=== PATIENT | male | born 1990 | race Caucasian/White ===

== ENCOUNTER 2020-05-23 10:54 | Outpatient (CLI) | payer OTHER, SELFPAY ==
[2020-05-24 13:59] LABS: SARS-CoV-2 RNA PCR Positive
== END 2020-05-23 10:55 | disposition home or self-care (01) ==
PROVIDERS: PCP Nurse Practitioner Family; Visit Provider Nurse Practitioner Family
DX: U07.1 COVID-19 (principal)
CPT/HCPCS: 87635; C9803; U0003

== ENCOUNTER 2020-09-05 15:54 | Outpatient (CLI) | payer OTHER, SELFPAY ==
[2020-09-05 16:10] LABS: Basophils Absolute Auto 0.04 K/mm3 (0.00-0.10); Basophils Percent Auto 0.5 % (0.0-1.0); Eosinophils Absolute Auto 0.11 K/mm3 (0.02-0.50); Eosinophils Percent Auto 1.3 % (1.0-6.0); Hemoglobin 14.6 g/dL (14.0-18.0); Immature Granulocyte Absolute 0.03 K/mm3 (0.00-0.00); Immature Granulocyte Percent A 0.3 % (0.0-0.0); Lymphocytes Absolute Auto 2.82 K/mm3 (1.10-4.50); Lymphocytes Percent Auto 32.1 % (18.0-42.0); Mean Corpuscular HGB Conc 34.8 g/dL (32.0-36.0); Mean Corpuscular Hemoglobin 31.9 pg (27.0-31.0); Mean Corpuscular Volume 91.9 fL (78.0-102.0); Mean Platelet Volume 10.7 fl (8.7-11.0); Monocytes Absolute Auto 0.56 K/mm3 (0.10-0.90); Monocytes Percent Auto 6.4 % (2.0-11.0); Neutrophils Absolute Auto 5.2 K/mm3 (1.7-7.2); Neutrophils Percent Auto 59.4 % (50.0-70.0); Platelet Count Result 224 K/mm3 (150-420); Red Blood Count 4.57 M/mm3 (4.70-6.10); Red Cell Distribution Width 11.6 % (11.6-14.4); White Blood Count 8.8 K/mm3 (4.8-10.8)
[2020-09-05 17:06] LABS: Alanine Aminotransferase 33 U/L (16-63); Albumin Level 4.2 g/dL (3.4-5.0); Alkaline Phosphatase 72 U/L (46-116); Amylase 28 U/L (25-115); Anion Gap 9 mmol/L (8-16); Aspartate Amino Transferase 23 U/L (15-37); Bilirubin,Total 0.3 mg/dL (0.00-1.00); Blood Urea Nitrogen 13 mg/dL (7-18); Carbon Dioxide 27 mmol/L (21-32); Chloride 103 mmol/L (98-108); Estimated Glomerular Filt Rate > 60; Glucose 118 mg/dL (70-99); Lipase 86 U/L (73-393); Osmolality Calculated 289 mOsm/kg (285-295); Potassium 4.1 mmol/L (3.5-5.1); Total Protein 7.5 g/dL (6.4-8.2)
[2020-09-05 17:11] LABS: Sodium 139 mmol/L (136-145)
[2020-09-06 18:05] LABS: Hemoglobin A1C 5.3 % (<5.7)
[2020-09-07 19:29] LABS: Valproic Acid 23.3 mg/L (50.0-100.0)
== END 2020-09-05 15:55 | disposition home or self-care (01) ==
LOC: CHSLAB 15:57
PROVIDERS: PCP Nurse Practitioner Family; Visit Provider Nurse Practitioner Family
DX: R11.2 Nausea with vomiting, unspecified (principal); R10.9 Unspecified abdominal pain; Z00.00 Encounter for general adult medical examination without abnormal findings
CPT/HCPCS: 36415; 80053; 80164; 82150; 83036; 83690; 85025

== ENCOUNTER 2020-10-16 12:01 | Outpatient (CLI) | payer OTHER, SELFPAY ==
--- NOTE | 2020-10-16 12:04 | ECG_ITS ---
Measurements Intervals [place] Rate: 53 P: 20 ME: 168 QRS: -7 QRSD: 116 T: 22 QT: 423 QTc: 400 Interpretive Statements SINUS BRADYCARDIA WITH SINUS ARRHYTHMIA DELAYED PRECORDIAL R/S TRANSITION MINIMAL Q WAVES- HIGH LATERAL LEADS BORDERLINE ECG Electronically Signed On 10-16-2020 12:25:13 IMPREGNATOR by Eder Morejon D.O.
== END 2020-10-16 12:02 | disposition home or self-care (01) ==
LOC: CHSCARD 12:04
PROVIDERS: PCP Family Medicine; Visit Provider Nurse Practitioner Family
DX: R00.2 Palpitations (principal)
CPT/HCPCS: 93005

== ENCOUNTER 2021-04-10 16:29 | Outpatient (CLI) | payer OTHER, SELFPAY ==
[2021-04-10 16:56] LABS: Basophils Absolute Auto 0.05 K/mm3 (0.00-0.10); Basophils Percent Auto 0.6 % (0.0-1.0); Eosinophils Absolute Auto 0.13 K/mm3 (0.02-0.50); Eosinophils Percent Auto 1.5 % (1.0-6.0); Hematocrit 41.3 % (40.0-54.0); Hemoglobin 14.7 g/dL (14.0-18.0); Immature Granulocyte Absolute 0.04 K/mm3 (0.00-0.00); Immature Granulocyte Percent A 0.5 % (0.0-0.0); Lymphocytes Absolute Auto 2.79 K/mm3 (1.10-4.50); Lymphocytes Percent Auto 32.2 % (18.0-42.0); Mean Corpuscular HGB Conc 35.6 g/dL (32.0-36.0); Mean Corpuscular Hemoglobin 32.5 pg (27.0-31.0); Mean Corpuscular Volume 91.2 fL (78.0-102.0); Mean Platelet Volume 10.8 fl (8.7-11.0); Monocytes Absolute Auto 0.62 K/mm3 (0.10-0.90); Monocytes Percent Auto 7.2 % (2.0-11.0); Platelet Count Result 240 K/mm3 (150-420); Red Blood Count 4.53 M/mm3 (4.70-6.10); Red Cell Distribution Width 11.9 % (11.6-14.4); White Blood Count 8.7 K/mm3 (4.8-10.8)
[2021-04-10 17:06] LABS: Hemoglobin A1C 5.2 % (<5.7)
[2021-04-10 17:23] LABS: Alanine Aminotransferase 25 U/L (16-63); Albumin Level 4.3 g/dL (3.4-5.0); Alkaline Phosphatase 74 U/L (46-116); Anion Gap 11 mmol/L (8-16); Aspartate Amino Transferase 19 U/L (15-37); Bilirubin,Total 0.3 mg/dL (0.00-1.00); Blood Urea Nitrogen 12 mg/dL (7-18); Calcium 8.9 mg/dL (8.5-10.1); Carbon Dioxide 30 mmol/L (21-32); Chloride 101 mmol/L (98-108); Cholesterol 147 mg/dL (0-200); Estimated Glomerular Filt Rate > 60; Free T4 Free Thyroxine 1.06 ng/dL (0.76-1.46); Glucose 97 mg/dL (70-99); HDL Direct 27 mg/dL (40-60); LDL Cholesterol Calculated 27 mg/dL (<130); Osmolality Calculated 293 mOsm/kg (285-295); Potassium 4.7 mmol/L (3.5-5.1); Sodium 142 mmol/L (136-145); Thyroid Stimulating Hormone 1.83 uIU/mL (0.36-3.74); Total Protein 7.7 g/dL (6.4-8.2); Triglycerides 467 mg/dL (0-150)
[2021-04-10 17:29] LABS: Folic Acid > 20.0 ng/mL (8.6->20)
[2021-04-11 11:16] LABS: LDL Cholesterol Direct 82 mg/dL (0-130)
[2021-04-12 15:43] LABS: Valproic Acid 26.2 mg/L (50.0-100.0)
== END 2021-04-10 16:30 | disposition home or self-care (01) ==
LOC: CHSLAB 16:33
PROVIDERS: PCP Nurse Practitioner Family; Visit Provider Nurse Practitioner Psychiatric/Mental Health
DX: Z79.899 Other long term (current) drug therapy (principal); F31.32 Bipolar disorder, current episode depressed, moderate; F41.1 Generalized anxiety disorder; F51.01 Primary insomnia; K21.9 Gastro-esophageal reflux disease without esophagitis
CPT/HCPCS: 36415; 80053; 80061; 80164; 82746; 83036; 83721; 84439; 84443; 85025

== ENCOUNTER 2021-04-26 17:44 | Outpatient (CLI) | payer OTHER, SELFPAY ==
[2021-04-26 19:03] LABS: SARS-CoV-2 RNA PCR Negative (Negative)
== END 2021-04-26 17:45 | disposition home or self-care (01) ==
LOC: CHSLAB 17:47
PROVIDERS: PCP Nurse Practitioner Family; Visit Provider Nurse Practitioner Family
DX: J02.9 Acute pharyngitis, unspecified (principal); Z20.822 Contact with and (suspected) exposure to COVID-19
CPT/HCPCS: C9803; U0003; U0005

== ENCOUNTER 2021-09-17 08:02 | Outpatient (CLI) | payer OTHER, SELFPAY ==
[2021-09-17 08:15] LABS: Basophils Absolute Auto 0.04 K/mm3 (0.00-0.10); Basophils Percent Auto 0.7 % (0.0-1.0); Eosinophils Percent Auto 1.7 % (1.0-6.0); Hematocrit 43.2 % (40.0-54.0); Hemoglobin 15.2 g/dL (14.0-18.0); Immature Granulocyte Absolute 0.02 K/mm3 (0.00-0.00); Immature Granulocyte Percent A 0.3 % (0.0-0.0); Lymphocytes Absolute Auto 2.05 K/mm3 (1.10-4.50); Lymphocytes Percent Auto 35.5 % (18.0-42.0); Mean Corpuscular HGB Conc 35.2 g/dL (32.0-36.0); Mean Corpuscular Hemoglobin 31.9 pg (27.0-31.0); Mean Corpuscular Volume 90.8 fL (78.0-102.0); Mean Platelet Volume 10.5 fl (8.7-11.0); Monocytes Absolute Auto 0.48 K/mm3 (0.10-0.90); Monocytes Percent Auto 8.3 % (2.0-11.0); Neutrophils Absolute Auto 3.1 K/mm3 (1.7-7.2); Neutrophils Percent Auto 53.5 % (50.0-70.0); Platelet Count Result 229 K/mm3 (150-420); Red Blood Count 4.76 M/mm3 (4.70-6.10); Red Cell Distribution Width 11.1 % (11.6-14.4); White Blood Count 5.8 K/mm3 (4.8-10.8)
[2021-09-17 08:43] LABS: Hemoglobin A1C 5.2 % (<5.7)
[2021-09-17 09:03] LABS: Alanine Aminotransferase 27 U/L (16-63); Albumin Level 4.1 g/dL (3.4-5.0); Alkaline Phosphatase 74 U/L (46-116); Anion Gap 10 mmol/L (8-16); Aspartate Amino Transferase 17 U/L (15-37); Bilirubin,Total 0.5 mg/dL (0.00-1.00); Blood Urea Nitrogen 10 mg/dL (7-18); Calcium 8.7 mg/dL (8.5-10.1); Carbon Dioxide 27 mmol/L (21-32); Chloride 104 mmol/L (98-108); Cholesterol 130 mg/dL (0-200); Estimated Glomerular Filt Rate > 60; Folic Acid > 20.0 ng/mL (8.6->20); Glucose 98 mg/dL (70-99); HDL Direct 30 mg/dL (40-60); LDL Cholesterol Calculated 59 mg/dL (<130); Osmolality Calculated 291 mOsm/kg (285-295); Potassium 4.5 mmol/L (3.5-5.1); Sodium 141 mmol/L (136-145); Thyroid Stimulating Hormone 1.86 uIU/mL (0.36-3.74); Total Protein 7.4 g/dL (6.4-8.2); Triglycerides 203 mg/dL (0-150)
[2021-09-20 11:04] LABS: Valproic Acid 35.5 mg/L (50.0-100.0)
== END 2021-09-17 08:03 | disposition home or self-care (01) ==
LOC: CHSLAB 08:05
PROVIDERS: PCP Nurse Practitioner Family; Visit Provider Nurse Practitioner Psychiatric/Mental Health
DX: Z79.899 Other long term (current) drug therapy (principal); F41.1 Generalized anxiety disorder; F51.01 Primary insomnia; K21.9 Gastro-esophageal reflux disease without esophagitis; F31.32 Bipolar disorder, current episode depressed, moderate
CPT/HCPCS: 36415; 80053; 80061; 80164; 82746; 83036; 84439; 84443; 85025

== ENCOUNTER 2022-09-02 13:31 | Outpatient (CLI) | payer OTHER, SELFPAY ==
[2022-09-02 13:48] LABS: Basophils Absolute Auto 0.04 K/mm3 (0.00-0.10); Basophils Percent Auto 0.5 % (0.0-1.0); Eosinophils Absolute Auto 0.16 K/mm3 (0.02-0.50); Hematocrit 44.1 % (40.0-54.0); Hemoglobin 15.5 g/dL (14.0-18.0); Immature Granulocyte Absolute 0.02 K/mm3 (0.00-0.00); Immature Granulocyte Percent A 0.2 % (0.0-0.0); Lymphocytes Absolute Auto 2.41 K/mm3 (1.10-4.50); Mean Corpuscular HGB Conc 35.1 g/dL (32.0-36.0); Mean Corpuscular Hemoglobin 31.9 pg (27.0-31.0); Mean Corpuscular Volume 90.7 fL (78.0-102.0); Mean Platelet Volume 10.6 fl (8.7-11.0); Monocytes Absolute Auto 0.66 K/mm3 (0.10-0.90); Monocytes Percent Auto 8.2 % (2.0-11.0); Neutrophils Absolute Auto 4.8 K/mm3 (1.7-7.2); Neutrophils Percent Auto 59.1 % (50.0-70.0); Platelet Count Result 255 K/mm3 (150-420); Red Blood Count 4.86 M/mm3 (4.70-6.10); Red Cell Distribution Width 11.5 % (11.6-14.4)
[2022-09-02 14:04] LABS: Hemoglobin A1C 5.1 % (<5.7)
[2022-09-02 14:24] LABS: Alanine Aminotransferase 23 U/L (16-63); Albumin Level 4.3 g/dL (3.4-5.0); Alkaline Phosphatase 78 U/L (46-116); Anion Gap 10 mmol/L (8-16); Aspartate Amino Transferase 17 U/L (15-37); Bilirubin Direct 0.1 mg/dL (0-0.2); Bilirubin,Total 0.3 mg/dL (0.00-1.00); Blood Urea Nitrogen 14 mg/dL (7-18); Calcium 9.3 mg/dL (8.5-10.1); Carbon Dioxide 28 mmol/L (21-32); Chloride 105 mmol/L (98-108); Cholesterol 171 mg/dL (0-200); Estimated Glomerular Filt Rate > 60; Free T4 Free Thyroxine 0.93 ng/dL (0.76-1.46); Glucose 97 mg/dL (70-99); HDL Direct 32 mg/dL (40-60); LDL Cholesterol Calculated 49 mg/dL (<130); Osmolality Calculated 296 mOsm/kg (285-295); Potassium 4.4 mmol/L (3.5-5.1); Sodium 143 mmol/L (136-145); Thyroid Stimulating Hormone 2.24 uIU/mL (0.36-3.74); Total Protein 7.5 g/dL (6.4-8.2); Triglycerides 452 mg/dL (0-150)
[2022-09-02 14:30] LABS: LDL Cholesterol Direct 90 mg/dL (0-130)
[2022-09-04 15:51] LABS: Valproic Acid 17.3 mg/L (50.0-100.0)
== END 2022-09-02 13:32 | disposition home or self-care (01) ==
LOC: CHSLAB 13:38
PROVIDERS: PCP Nurse Practitioner Family; Visit Provider Nurse Practitioner Psychiatric/Mental Health
DX: Z79.899 Other long term (current) drug therapy (principal); K21.9 Gastro-esophageal reflux disease without esophagitis; F41.1 Generalized anxiety disorder; F51.01 Primary insomnia
CPT/HCPCS: 36415; 80053; 80061; 80164; 82248; 83036; 83721; 84439; 84443; 85025

== ENCOUNTER 2023-01-19 11:06 | Outpatient (CLI) | payer OTHER, SELFPAY ==
[2023-01-19 11:24] LABS: Basophils Absolute Auto 0.04 K/mm3 (0.00-0.10); Basophils Percent Auto 0.7 % (0.0-1.0); Eosinophils Absolute Auto 0.13 K/mm3 (0.02-0.50); Eosinophils Percent Auto 2.1 % (1.0-6.0); Hematocrit 43.3 % (40.0-54.0); Immature Granulocyte Absolute 0.02 K/mm3 (0.00-0.00); Immature Granulocyte Percent A 0.3 % (0.0-0.0); Lymphocytes Percent Auto 32.9 % (18.0-42.0); Mean Corpuscular HGB Conc 34.6 g/dL (32.0-36.0); Mean Corpuscular Hemoglobin 31.6 pg (27.0-31.0); Mean Corpuscular Volume 91.4 fL (78.0-102.0); Mean Platelet Volume 10.8 fl (8.7-11.0); Monocytes Absolute Auto 0.45 K/mm3 (0.10-0.90); Monocytes Percent Auto 7.4 % (2.0-11.0); Neutrophils Absolute Auto 3.4 K/mm3 (1.7-7.2); Neutrophils Percent Auto 56.6 % (50.0-70.0); Platelet Count Result 222 K/mm3 (150-420); Red Blood Count 4.74 M/mm3 (4.70-6.10); Red Cell Distribution Width 11.7 % (11.6-14.4); White Blood Count 6.1 K/mm3 (4.8-10.8)
[2023-01-19 11:57] LABS: Alanine Aminotransferase 29 U/L (16-63); Albumin Level 4.2 g/dL (3.4-5.0); Alkaline Phosphatase 78 U/L (46-116); Anion Gap 7 mmol/L (8-16); Aspartate Amino Transferase 25 U/L (15-37); Bilirubin Direct 0.1 mg/dL (0-0.2); Bilirubin,Total 0.5 mg/dL (0.00-1.00); Blood Urea Nitrogen 9 mg/dL (7-18); Carbon Dioxide 30 mmol/L (21-32); Chloride 103 mmol/L (98-108); Cholesterol 147 mg/dL (0-200); Estimated Glomerular Filt Rate > 60; Glucose 91 mg/dL (70-99); HDL Direct 37 mg/dL (40-60); LDL Cholesterol Calculated 83 mg/dL (<130); Osmolality Calculated 288 mOsm/kg (285-295); Potassium 4.5 mmol/L (3.5-5.1); Sodium 140 mmol/L (136-145); Thyroid Stimulating Hormone 2.72 uIU/mL (0.36-3.74); Total Protein 7.6 g/dL (6.4-8.2); Triglycerides 135 mg/dL (0-150)
[2023-01-21 19:43] LABS: Valproic Acid 16.1 mg/L (50.0-100.0)
== END 2023-01-19 11:07 | disposition home or self-care (01) ==
LOC: CHSLAB 11:08
PROVIDERS: PCP Nurse Practitioner Family; Visit Provider Nurse Practitioner Psychiatric/Mental Health
DX: F41.1 Generalized anxiety disorder (principal); F31.32 Bipolar disorder, current episode depressed, moderate; F51.01 Primary insomnia; K21.9 Gastro-esophageal reflux disease without esophagitis; Z79.899 Other long term (current) drug therapy
CPT/HCPCS: 36415; 80053; 80061; 80164; 82248; 84443; 85025

== ENCOUNTER 2023-08-26 09:09 | Outpatient (CLI) | payer OTHER, SELFPAY ==
[2023-08-26 09:33] LABS: Hemoglobin A1C 5.4 % (<5.7)
[2023-08-26 09:38] LABS: Basophils Absolute Auto 0.05 K/mm3 (0.00-0.10); Basophils Percent Auto 0.8 % (0.0-1.0); Eosinophils Absolute Auto 0.11 K/mm3 (0.02-0.50); Eosinophils Percent Auto 1.7 % (1.0-6.0); Hematocrit 44.2 % (40.0-54.0); Hemoglobin 15.4 g/dL (14.0-18.0); Immature Granulocyte Absolute 0.03 K/mm3 (0.00-0.00); Immature Granulocyte Percent A 0.5 % (0.0-0.0); Lymphocytes Absolute Auto 1.95 K/mm3 (1.10-4.50); Mean Corpuscular HGB Conc 34.8 g/dL (32.0-36.0); Mean Corpuscular Volume 91.7 fL (78.0-102.0); Mean Platelet Volume 10.4 fl (8.7-11.0); Monocytes Absolute Auto 0.55 K/mm3 (0.10-0.90); Monocytes Percent Auto 8.7 % (2.0-11.0); Neutrophils Absolute Auto 3.6 K/mm3 (1.7-7.2); Neutrophils Percent Auto 57.3 % (50.0-70.0); Platelet Count Result 232 K/mm3 (150-420); Red Blood Count 4.82 M/mm3 (4.70-6.10); Red Cell Distribution Width 11.8 % (11.6-14.4); White Blood Count 6.3 K/mm3 (4.8-10.8)
[2023-08-26 10:09] LABS: Alanine Aminotransferase 26 U/L (16-63); Albumin Level 3.8 g/dL (3.4-5.0); Alkaline Phosphatase 59 U/L (46-116); Anion Gap 6 mmol/L (8-16); Aspartate Amino Transferase 19 U/L (15-37); Bilirubin Direct 0.1 mg/dL (0-0.2); Bilirubin,Total 0.7 mg/dL (0.00-1.00); Blood Urea Nitrogen 10 mg/dL (7-18); Calcium 8.9 mg/dL (8.5-10.1); Carbon Dioxide 31 mmol/L (21-32); Chloride 103 mmol/L (98-108); Cholesterol 144 mg/dL (0-200); Estimated Glomerular Filt Rate > 60; Glucose 95 mg/dL (70-99); HDL Direct 35 mg/dL (40-60); LDL Cholesterol Calculated 72 mg/dL (<130); Osmolality Calculated 289 mOsm/kg (285-295); Potassium 4.5 mmol/L (3.5-5.1); Sodium 140 mmol/L (136-145); Thyroid Stimulating Hormone 1.61 uIU/mL (0.36-3.74); Total Protein 7.1 g/dL (6.4-8.2); Triglycerides 183 mg/dL (0-150)
[2023-08-29 04:20] LABS: Valproic Acid 20.5 mg/L (50.0-100.0)
== END 2023-08-26 09:10 | disposition home or self-care (01) ==
LOC: CHSLAB 09:13
PROVIDERS: PCP Nurse Practitioner Family; Visit Provider Nurse Practitioner Psychiatric/Mental Health
DX: F31.32 Bipolar disorder, current episode depressed, moderate (principal); Z79.899 Other long term (current) drug therapy; K21.9 Gastro-esophageal reflux disease without esophagitis; F51.01 Primary insomnia
CPT/HCPCS: 36415; 80053; 80061; 80164; 82248; 83036; 84443; 85025

== ENCOUNTER 2024-02-02 11:28 | Outpatient (CLI) | payer OTHER, SELFPAY ==
[2024-02-02 12:18] LABS: Basophils Absolute Auto 0.06 K/mm3 (0.00-0.10); Basophils Percent Auto 0.8 % (0.0-1.0); Eosinophils Absolute Auto 0.14 K/mm3 (0.02-0.50); Eosinophils Percent Auto 1.9 % (1.0-6.0); Hematocrit 47.4 % (40.0-54.0); Hemoglobin 16.4 g/dL (14.0-18.0); Immature Granulocyte Absolute 0.03 K/mm3 (0.00-0.00); Immature Granulocyte Percent A 0.4 % (0.0-0.0); Lymphocytes Percent Auto 24.2 % (18.0-42.0); Mean Corpuscular HGB Conc 34.6 g/dL (32-36); Mean Corpuscular Hemoglobin 31.3 pg (27.0-31.0); Mean Corpuscular Volume 90.5 fL (78.0-102.0); Mean Platelet Volume 10.6 fl (8.7-11.0); Monocytes Absolute Auto 0.53 K/mm3 (0.10-0.90); Monocytes Percent Auto 7.1 % (2.0-11.0); Neutrophils Absolute Auto 4.87 K/mm3 (1.70-7.20); Neutrophils Percent Auto 65.6 % (50.0-70.0); Platelet Count Result 278 K/mm3 (150-420); Red Blood Count 5.24 M/mm3 (4.70-6.10); Red Cell Distribution Width 11.7 % (11.6-14.4); White Blood Count 7.4 K/mm3 (4.8-10.8)
[2024-02-02 12:54] LABS: Alanine Aminotransferase 28 U/L (16-63); Albumin Level 3.8 g/dL (3.4-5.0); Alkaline Phosphatase 59 U/L (46-116); Anion Gap 10 mmol/L (4-12); Aspartate Amino Transferase 21 U/L (15-37); Bilirubin,Total 0.6 mg/dL (0.00-1.00); Blood Urea Nitrogen 6 mg/dL (7-18); Calcium 8.7 mg/dL (8.5-10.1); Carbon Dioxide 27 mmol/L (21-32); Chloride 101 mmol/L (98-108); Estimated Glomerular Filt Rate > 60; Glucose 91 mg/dL (70-99); Osmolality Calculated 283 mOsm/kg (285-295); Potassium 4.4 mmol/L (3.5-5.1); Prostate Specific Antigen 0.7 ng/mL (< OR = 4.0); Sodium 138 mmol/L (136-145); Total Protein 6.9 g/dL (6.4-8.2)
[2024-02-04 08:08] LABS: Sex Hormone Binding Globulin 18 nmol/L (10-50)
[2024-02-06 11:33] LABS: Testosterone Free 194.1 pg/mL (35.0-155.0); Testosterone Total 771 ng/dL (250-1100)
[2024-02-10 02:19] LABS: Estradiol, Ultrasensitive 60 pg/mL (< OR = 29)
== END 2024-02-02 11:29 | disposition home or self-care (01) ==
LOC: CHSLAB 11:32
PROVIDERS: PCP Nurse Practitioner Family; Visit Provider Chiropractor
DX: D75.1 Secondary polycythemia (principal); N52.8 Other male erectile dysfunction; E29.1 Testicular hypofunction; Z79.890 Hormone replacement therapy
CPT/HCPCS: 36415; 80053; 82670; 84153; 84270; 84402; 84403; 85025

== ENCOUNTER 2024-07-26 11:25 | Outpatient (CLI) | payer OTHER, SELFPAY ==
[2024-07-26 11:52] LABS: Basophils Absolute Auto 0.04 K/mm3 (0.00-0.10); Basophils Percent Auto 0.5 % (0.0-1.0); Eosinophils Absolute Auto 0.07 K/mm3 (0.02-0.50); Eosinophils Percent Auto 0.9 % (1.0-6.0); Hematocrit 48.2 % (40.0-54.0); Immature Granulocyte Absolute 0.03 K/mm3 (0.00-0.00); Immature Granulocyte Percent A 0.4 % (0.0-0.0); Lymphocytes Absolute Auto 1.95 K/mm3 (1.10-4.50); Lymphocytes Percent Auto 24.9 % (18.0-42.0); Mean Corpuscular HGB Conc 35.3 g/dL (32-36); Mean Corpuscular Hemoglobin 31.2 pg (27.0-31.0); Mean Corpuscular Volume 88.4 fL (78.0-102.0); Mean Platelet Volume 10.3 fl (8.7-11.0); Monocytes Absolute Auto 0.61 K/mm3 (0.10-0.90); Monocytes Percent Auto 7.8 % (2.0-11.0); Neutrophils Absolute Auto 5.14 K/mm3 (1.70-7.20); Neutrophils Percent Auto 65.5 % (50.0-70.0); Platelet Count Result 234 K/mm3 (150-420); Red Blood Count 5.45 M/mm3 (4.70-6.10); Red Cell Distribution Width 11.9 % (11.6-14.4); White Blood Count 7.8 K/mm3 (4.8-10.8)
[2024-07-26 13:12] LABS: Alanine Aminotransferase 35 U/L (16-63); Albumin Level 3.9 g/dL (3.4-5.0); Alkaline Phosphatase 67 U/L (46-116); Anion Gap 9 mmol/L (4-12); Aspartate Amino Transferase 27 U/L (15-37); Bilirubin Direct 0.1 mg/dL (0-0.2); Bilirubin,Total 0.8 mg/dL (0.00-1.00); Blood Urea Nitrogen 8 mg/dL (7-18); Calcium 8.9 mg/dL (8.5-10.1); Carbon Dioxide 28 mmol/L (21-32); Chloride 100 mmol/L (98-108); Cholesterol 119 mg/dL (0-200); Estimated Glomerular Filt Rate > 60; Glucose 87 mg/dL (70-99); HDL Direct 35 mg/dL (40-60); LDL Cholesterol Calculated 58 mg/dL (<130); Osmolality Calculated 281 mOsm/kg (285-295); Potassium 4.5 mmol/L (3.5-5.1); Prostate Specific Antigen 0.7 ng/mL (< OR = 4.0); Sodium 137 mmol/L (136-145); Total Protein 7.1 g/dL (6.4-8.2); Triglycerides 128 mg/dL (0-150)
[2024-07-26 13:16] LABS: Thyroid Stimulating Hormone Reflex 0.85 u/IU/mL (0.36-3.74)
[2024-07-27 09:28] LABS: Valproic Acid 44.5 mg/L (50.0-100.0)
[2024-07-29 06:19] LABS: Sex Hormone Binding Globulin 11 nmol/L (10-50)
== END 2024-07-26 11:26 | disposition home or self-care (01) ==
LOC: CHSLAB 11:27
PROVIDERS: PCP Nurse Practitioner Family; Visit Provider Nurse Practitioner Family
DX: Z00.00 Encounter for general adult medical examination without abnormal findings (principal); F31.32 Bipolar disorder, current episode depressed, moderate; F41.1 Generalized anxiety disorder; F51.01 Primary insomnia; R45.4 Irritability and anger; Z79.899 Other long term (current) drug therapy
CPT/HCPCS: 36415; 80053; 80061; 80164; 82248; 82670; 83036; 84153; 84270; 84402; 84403; 84443; 85025

== ENCOUNTER 2025-02-28 13:05 | Outpatient (CLI) | payer OTHER, SELFPAY ==
--- OUTSIDE RECORDS SUMMARY | 2025-02-28 13:16 | XMS_ITS | Patient Health Record ---
Author Organization 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 Name Role Phone Nano Kennedy Primary Care Provider Unav Ava Hernandez Unavailable [phone] Faviola Agosto Unavailable [phone] Blake Eason Unavailable [phone] Allergies Allergen (clinical drug ingredient) Drug/Non Drug Allergy documented on EMR Reaction Allergy Type Onset Date Status BEE STINGS (uncoded) Unknown Allergy Active Results Component Value Reference Range Notes UDT Reviewed date:12/21/2024 11:03:24 AM Interpretation: Performing Lab: Notes/Report: THC POS 0 - 50 ng/ml Cocaine NEG 0 - 300 ng/ml Amphetamine NEG 0 - 1000 ng/ml Buprenorphine (BUP) NEG 0 - 10 ng/ml Secobarbital (Bar) NEG 0 - 300 ng/ml Oxazepam (BZO) NEG 0 - 300 ng/ml 6-nbhhkufnzg-5,9-xmmpydts-7, 3-dipheny lpyrrolidine (EDDP) NEG 0 - 300 ng/ml Methamphetamine (MET) NEG 0 - 1000 ng/ml Methylenedioxymethamphetamine (MDMA) NEG 0 - 500 ng/ml Morphine (MOP 300/[id number]) NEG 0 - 300 ng/ml Methadone (MTD) NEG 0 - 300 ng/ml Phencyclidine (PCP) NEG 0 - 25 ng/ml Nortriptyline (TCA) NEG 0 - 1000 ng/ml Oxycodone NEG 0 - 300 ng/ml x NEG 0 - 300 ng/ml THCCOOH Reviewed date:01/06/2025 09:33:11 AM Interpretation: Performing Lab:1, [facility], [address] [facility], [place], Director - [id number] Notes/Report: An exception occurred while processing this report and so it has incomplete data. Please contact [employer] for assistance. THCCOOH 167.8 15.0 ng/mL Not Medicated Inconsistent PDF Report CE_OUT_RAW_CO MMON_SRC_ORU Validity Testing Reviewed date:01/06/2025 09:33:22 AM Interpretation: Performing Lab: Notes/Report: Not Medicated Consistent Not Medicated Consistent Not Medicated Consistent Not Medicated Consistent Specific [place] 1.023 1.003 - 1.030 pH 6.2 3.0 - 10.9 Oxidants -21 200 g/mL Creatinine 123.0 20.0 - 300.0 mg/dL UDT Reviewed date:12/27/2024 01:23:40 PM Interpretation: Performing Lab: Notes/Report: THC POS 0 - 50 ng/ml Cocaine NEG 0 - 300 ng/ml Amphetamine NEG 0 - 1000 ng/ml Buprenorphine (BUP) NEG 0 - 10 ng/ml Secobarbital (Bar) NEG 0 - 300 ng/ml Oxazepam (BZO) NEG 0 - 300 ng/ml 3-zzwpqdwmfe-5,9-lpswofig-1, 3-dipheny lpyrrolidine (EDDP) NEG 0 - 300 ng/ml Methamphetamine (MET) NEG 0 - 1000 ng/ml Methylenedioxymethamphetamine (MDMA) NEG 0 - 500 ng/ml Morphine (MOP 300/[id number]) NEG 0 - 300 ng/ml Methadone (MTD) NEG 0 - 300 ng/ml Phencyclidine (PCP) NEG 0 - 25 ng/ml Nortriptyline (TCA) NEG 0 - 1000 ng/ml Oxycodone NEG 0 - 300 ng/ml x NEG 0 - 300 ng/ml Reason For Referral No Information Medications Medication SIG (Take, Route, Frequency, Duration) Notes Start Date End Date Status Venlafaxine HCl ER 37.5 MG Oral 10/20/2023 Not-Taking Divalproex Sodium ER 500 MG 1 tablet Oral three times a day for 90 days 05/08/2025 Active Omeprazole 40 MG Oral 10/20/2023 No t-Taking Venlafaxine HCl ER 150 MG 1 capsule Oral Once a day for 90 days Active ARIPiprazole 5 MG Oral 10/20/2023 N ot-Taking Cariprazine HCl 3 MG 1 capsule Orally Once a day for 90 days Active Atomoxetine HCl 60 MG 1 capsule Orally Once a day for 90 days d/c 40 mg dose 12/27/2024 05/08/2025 Active Famotidine 10 MG 1 tablet as needed Oral Twice a day 10/20/2023 Active ProAir HFA 108 (90 Base) MCG/ACT Inhalation 10/20/2023 Active busPIRone HCl 10 MG 1 tablet Oral three times day for 90 days 05/08/2025 Active Vraylar 3 MG 1 capsule Orally Once a day for 30 day(s) PA approved 09/26/24-09/27/2024 Active Immunizations Vaccine Route Administration Date Status Comme nts Tdap Unknown 10/11/2012 Administered Td (adult), adsorbed Unknown 05/07/2002 Administered Pfizer Biontech Covid-19 Vac cine 2nd dose Unknown 10/11/2021 Administered Pfizer Biontech Covid-19 Vac cine 2nd dose Unknown 11/01/2021 Administered OPV Unknown 1988 Administered OPV Unknown 1988 Administered OPV Unknown 02/06/1989 Administered OPV Unknown 06/04/1990 Administered OPV Unknown 05/07/1993 Administered MMR Unknown 03/02/1990 Administered MMR Unknown 05/07/1993 Administered MMR Unknown 10/11/2012 Administered Hib, unspecified formulation Unknown 06/04/1990 Adminis tered Hep B, adolescent or pediatr ic (11-19), 3 dose schedule Unknown 10/31/1997 Administered Hep B, adolescent or pediatr ic (11-19), 3 dose schedule Unknown 11/28/1997 Administered Hep B, adolescent or pediatr ic (11-19), 3 dose schedule Unknown 04/27/1998 Administered DTP Unknown 1988 Administered DTP Unknown 1988 Administered DTP Unknown 02/06/1989 Administered DTP Unknown 06/04/1990 Administered DTP Unknown 05/07/1993 Administered Social History Tobacco Use: Social History Observation Description Date Details (start date - stop date) Former Smoker 03/05/2003 - 05/05/2024 Sex Assigned At : Social History Observation Description Sex Assigned At Male Household Question Answer Notes Marital status: Number of adults in household: 2 Sexual History Question Answer Notes Had sex in the past 12 months (vaginal, oral, or anal)? Yes with Women only Tobacco Control (Standard) Question Answer Notes Tobacco use: Former smoker How often do you smoke cigarettes? Every day When did you start smoking? 03/05/2003 When did you stop smoking? 05/05/2024 How many cigarettes a day do you smoke? 11-20 How soon after you wake up d o you smoke your first cigarette? 6-30 minutes Are you interested in quitting? Thinking about q uitting How long has it been since y ou last smoked? 3-6 months Additional Findings: Tobacco user e-cigarette Additional Findings: Tobacco non-user Current no nsmoker,Ex-cigarette smoker AUDIT-C (Standard) Question Answer Notes Did you have a drink contain ing alcohol in the past year? Yes How often did you have six o r more drinks on one occasion in the past year? 2 to 3 times per week (3 points) How many drinks did you have on a typical day when you were drinking in the past year? 10 or more drinks (4 points) How often did you have a dri nk containing alcohol in the past year? 2 to 3 times a week (3 points) Points 10 Interpretation Positive Section Notes: Do you or have you ever smok ed tobacco?: Current every day smokerHow many years have you smoked tobacco?: 18At what age did you start smoking tobacco?: 12How much tobacco do you smoke?: NoneWhen did you quit smoking?: (Notes: 01/03/2023)Do you or have you ever used any other forms of tobacco or nicotine?: NoDo you or have you ever used e-cigarettes or vape?: Current user of electronic cigarettesDo you or have you ever used smokeless tobacco?: Never used smokeless tobaccoHow much tobacco do you chew?: noneWhat was the date of your most recent tobacco screening?: 10/06/2023Has tobacco cessation counseling been provided?: NoOn what date was tobacco cessation counseling provided?: 08/25/2023What is your level of alcohol consumption?: OccasionalHow many years have you consumed alcohol?: 18How many days in the past year have you consumed 5 or more drinks? 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 SexualityWhat is your relationship status?: MarriedAre you sexually active?: YesDo you use protection during sex?: NoHow many children do you have?: 1Home and EnvironmentAre you a caregiver?: NoDo you have any siblings?: 1Do you have smoke and carbon monoxide detectors in your home?: YesAre you passively exposed to smoke?: YesAre there any smokers in your house?: YesAre there any guns present in your home?: YesDiet and ExerciseWhat type of diet are you following?: RegularLifestyleDo you feel stressed (tense, restless, nervous, or anxious, or unable to sleep at night)?: Rather muchDo you participate in social media?: YesDo you use your seat belt or car seat routinely?: YesAdvance DirectiveDo you have an advance directive?: NoDo you have a medical power of corporate attorney?: NoPublic Health and TravelHave you been to an area known to be high risk for COVID-19?: NoActivities of Daily LivingAre you able to care for yourself?: YesAre you blind or do you have difficulty seeing?: NoAre you deaf or do you have serious difficulty hearing? : NoDo you have difficulty concentrating, remembering or making decisions?: NoDo you have difficulty walking or climbing stairs?: NoDo you have difficulty dressing or bathing?: NoDo you have difficulty doing errands alone?: NoAre you able to walk?: Yes: walks without restrictionsDo you have transportation difficulties?: NoOtherDrugs Abused: NoneEducation: 2 Year CollegeFamily history of heart disease?: Yes (Notes: grand parents)High blood pressure: NoHigh Cholesterol: NoHigh number of sexual partners: YesHistory of inconsistent/no condom use: YesMarital status: SinglePast steroid/HgH use?: NoGender Identity and LGBTQ IdentityGender identity: Identifies as MaleAssigned sex at : MaleFirst name used: JoshuaSexual orientation: Bisexual Problems Problem Type SNOMED Code ICD Code Onset Dates Problem Status W/U Status Risk Notes Problem Bipolar affective disorder, currently depressed, moderate (287690774) Bipolar disorder, current episode depressed, moderate (F31.32) 10/20/19 Active confirmed Problem [id number] Generalized anxiety disorder (F41.1) 10/20/19 Active confirmed Problem Primary insomnia (5708353) Primary insomnia (F51.01) 10/20/19 Active confirmed Problem Irritability and anger (014794956) Irritability and anger (R45.4) 10/20/19 Active confirmed Problem Screening for cardiovascular system disease (617438749) Encounter for screening for cardiovascular disorders (Z13.6) Active confirmed Problem 564507061 Tobacco use (Z72.0) Active confirmed Problem Long-term current use of drug therapy (876005103) Other fpc (current) drug therapy (Z79.899) 10/20/19 Active confirmed Problem Encounter for screening for depression (Z13.31) Active confirmed Problem 19638156 ADHD (attention deficit hyperactivity disorder), combined type (F90.2) Active confirmed Problem 888415386 Marijuana use (F12.90) Active confirmed Problem 312482002 Bipolar affectiv e disorder, depressed, moderate (F31.32) Active confirmed Problem 55375620 Elevated blood pressure reading (R03.0) Active confirmed Problem 806426834 Bipolar depression (F31.9) Active confirmed Problem 152670396 Engages in vapin g (Z72.89) Active confirmed Problem 366459 Alcohol use (F10.90) Active confirmed Problem 607569485 Bipolar affective, depress, severe (F31.4) Active confirmed Vital Signs Heart Rate 60 /min 02/07/2025 Height-cm 177.80 cm 02/07/2025 Blood pressure diastolic 79 mm Hg 02/07/2025 Weight-kg 121.11 kg 02/07/2025 Height 70.00 in 02/07/2025 Blood pressure systolic 138 mm Hg 02/07/2025 Weight 267 lbs 02/07/2025 BMI 38.31 kg/m2 02/07/2025 Encounters Encounter Location Date Provider Diagnosis [facility] [address] [facility] [address] [place] [address] 03/23/2024 Faviola Agosto Bipolar affective disorder, depressed, moderate F31.32 and Generalized anxiety disorder F41.[address] [facility] [address] [place] [address] 03/29/2024 Ava Lizz Bipolar disorder, current episode depressed, moderate F31.32 ; Generalized anxiety disorder F41.1 ; Primary insomnia F51.01 ; Irritability and anger R45.4 and Other fpc (current) drug therapy Z79.[address] [facility] [address] [place] [address] 06/21/2024 Ava Lizz Bipolar disorder, current episode depressed, moderate F31.32 ; Generalized anxiety disorder F41.1 ; Primary insomnia F51.01 ; Irritability and anger R45.4 and Other fpc (current) drug therapy Z79.[address] [facility] [address] [place] [address] 09/20/2024 Ava Zamudio Generalized anxiety disorder F41.1 ; Bipolar affective, depress, severe F31.4 ; Primary insomnia F51.01 ; Irritability and anger R45.4 ; Other fpc (current) drug therapy Z79.899 ; Elevated blood pressure reading R03.0 ; Tobacco use Z72.0 ; Engages in vaping Z72.89 and Alcohol use F10.[address] [facility] [address] [place] [address] 10/18/2024 Faviola Agosto Bipolar affective disorder, depressed, moderate F31.32 and Generalized anxiety disorder F41.[address] [facility] [address] [place] [address] 11/15/2024 Faviola Agosto Bipolar affective disorder, depressed, moderate F31.32 and Generalized anxiety disorder F41.[address] [facility] [address] [place] [address] 12/13/2024 Faviola Agosto Encounter for screen ing for depression Z13.31 ; Bipolar disorder, current episode depressed, moderate F31.32 and Generalized anxiety disorder F41.[address] [facility] [address] [place] [address] 12/13/2024 Ava Zamudio Generalized anxiety disorder F41.1 ; Bipolar depression F31.9 ; Primary insomnia F51.01 ; Irritability and anger R45.4 ; Other binitrotoluene operator (current) drug therapy Z79.899 ; Elevated blood pressure reading R03.0 ; Tobacco use Z72.0 ; Engages in vaping Z72.89 ; Alcohol use F10.90 ; Encounter for screening for depression Z13.31 ; Encounter for screening for cardiovascular disorders Z13.6 and ADHD (attention deficit hyperactivity disorder), combined type F90.2 [facility] [employer] [address] [facility] [address] [place] [address] 12/20/2024 Blake Jenaro Simeon of concentratio n R41.840 [facility] [address] [facility] [address] [place] [address] 12/27/2024 Ava Zamudio Generalized anxiety disorder F41.1 ; Bipolar depression F31.9 ; Primary insomnia F51.01 ; Irritability and anger R45.4 ; Other binitrotoluene operator (current) drug therapy Z79.899 ; Elevated blood pressure reading R03.0 ; Tobacco use Z72.0 ; Engages in vaping Z72.89 ; Alcohol use F10.90 ; Encounter for screening for depression Z13.31 ; Encounter for screening for cardiovascular disorders Z13.6 ; ADHD (attention deficit hyperactivity disorder), combined type F90.2 ; Marijuana use F12.90 and Nicotine use Z72.0 [facility] [address] [facility] [address] [place] [address] 02/07/2025 Ava Zamudio Generalized anxiety disorder F41.1 ; Bipolar depression F31.9 ; Primary insomnia F51.01 ; Irritability and anger R45.4 ; Other binitrotoluene operator (current) drug therapy Z79.899 ; Encounter for screening for depression Z13.31 ; Encounter for screening for cardiovascular disorders Z13.6 ; ADHD (attention deficit hyperactivity disorder), combined type F90.2 ; Marijuana use F12.90 and Negative depression screening Z13.31 [facility] [address] [facility] [address] [place] [address] 07/27/2024 Ava Zamudio [facility] [place] [address] [facility] [address] [place] [address] 07/27/2024 Ava Zamudio [facility] [employer] [address] [place] [address] [place] [address] 07/27/2024 Ava Zamudio [facility] [employer] [address] [place] [address] [place] [address] 09/23/2024 Ava Zamudio Bipolar affective disorder, depressed, moderate F31.32 Assessments Encounter Date Diagnosis (ICD Code) Assessment Notes Treatment Notes Treatment Clinical Notes Section Notes 09/23/2024 Bipolar affective disorder, depressed, moderate (ICD-10 - F31.32) Electronic Prior Authorization was requested for Vraylar 3 MG Capsule. Provider can order medication once approval received. 10/18/2024 Generalized anxiety disorder (ICD-10 - F41.1) 10/18/2024 Bipolar affective disorder, depressed, moderate (ICD-10 - F31.32) 06/21/2024 Bipolar disorder, current episode depressed, moderate (ICD-10 - F31.32) 1. Bipolar affective disorder, currently depressed, moderate - Depakote DR 500 mg three times a day for agitation monitor for jael and agitation Risperdal 2 mg a day for bipolar jael - educated on rx- improved with rx patient reported RLS at twice a day dosing and improved when decreased to daily Risperdal hx paranoia/ psychosis Effexor ER 150 MG DAILY IN AM for depression and anxiety EDUCATED ON ALL MEDICATIONS, benefits, side effects,risk Monitor B/P educated on all medications, benefits, side effects and risk, and educated on depression, anxiety, and mood d/o and educated on compliance of medications, metabolic and movement d/o education appointment's, continue therapy discussion with patient about course of treatmentand patient instructions. education on serotonin syndrome LABS ordered SSRI side effects discussed including but not limited to, gastric upset, nausea, vomiting, diarrhea and/or constipation, weight changes, sexual side effects including loss of libido, increased suicidal thoughts/behavi ors in children and young adults, and serotonin syndrome. Second generation antipsychotics (SGAs) have metabolic syndrome issues with weight gain, increase in prolactin, increased waist circumference, increased lipids, and increased glucose. Thus routine monitoring of weight, metabolic labs, etc. is indicated. A general rank ordering of antipsychotics that have the greatest to the least risk of metabolic effects is olanzapine, quetiapine, risperidone, ziprasidone, and aripiprazole. However, weight gain can occur with all of these drugs and considerable variability exists among patients receiving the same drug regarding the risk of metabolic effects. Anti-psychotic agents not only increase the risk of metabolic disorder, they also increase the risk of CVA, akathisia, and movement disorders including EPS or tardive dyskinesia (more common with first generation antipsychotics) and more. [facility] 2. Generalized anxiety disorder - Buspar 10 mg three times a day- therapy hx [facility] [place] 3. Primary insomnia -sleep disturbance schedule to sleep study [facility] in [place] 4. Irritability and anger -Depakote DR 500 mg three times a day 5. Long-term drug therapy - Discussion Notescontinue therapy 09/20/2024 Generalized anxiety disorder (ICD-10 - F41.1) 1. Bipolar affective disorder, currently depressed, Depakote DR 500 mg three times a day for agitation monitor for jael and agitation Discuss and educated on Vraylar and Caplyta for Bipolar Will add Vraylar 1.5 mg daily for 1 week then increase to 3 mg daily samples and co-pay card given Risperdal 2 mg a day for bipolar - plan to [facility] and stop rx next visit - educated on all rx- pateint will be on 2 antipsychotic presently to stablize mood, agitation, psychosis, paranoia, and jael, obtain labs PCP patient reported RLS at twice a day dosing and improved when decreased to daily Risperdal hx paranoia/ psychosis Effexor ER 150 MG DAILY IN AM for depression and anxiety EDUCATED ON ALL MEDICATIONS, benefits, side effects,risk Monitor B/P educated on all medications, benefits, side effects and risk, and educated on depression, anxiety, and mood d/o and educated on compliance of medications, metabolic and movement d/o education appointment's, continue therapy discussion with patient about course of treatmentand patient instructions. education on serotonin syndrome SSRI side effects discussed including but not limited to, gastric upset, nausea, vomiting, diarrhea and/or constipation, weight changes, sexual side effects including loss of libido, increased suicidal thoughts/behavi ors in children and young adults, and serotonin syndrome. Second generation antipsychotics (SGAs) have metabolic syndrome issues with weight gain, increase in prolactin, increased waist circumference, increased lipids, and increased glucose. Thus routine monitoring of weight, metabolic labs, etc. is indicated. A general rank ordering of antipsychotics that have the greatest to the least risk of metabolic effects is olanzapine, quetiapine, risperidone, ziprasidone, and aripiprazole. However, weight gain can occur with all of these drugs and considerable variability exists among patients receiving the same drug regarding the risk of metabolic effects. Anti-psychotic agents not only increase the risk of metabolic disorder, they also increase the risk of CVA, akathisia, and movement disorders including EPS or tardive dyskinesia (more common with first generation antipsychotics) and more. [facility] 2. Generalized anxiety disorder - Buspar 10 mg three times a day- therapy hx [facility] [place] 3. Primary insomnia -sleep disturbance sleep study [facility] in [facility] 4. Irritability and anger -Depakote DR 500 mg three times a day 5. elevted blood pressure reading educated on healthy b/p 120/80 monitor b/p at home refer to PCP, Urgent care/ER heart healthy diet and excise limit salt intake limit soda intake and caffiene increase water 6.tobacco use and vaping Do not smoke. Nicotine and other chemicals in cigarettes and cigars can cause lung damage. Ask your healthcare provider for information if you currently smoke and need help to quit. E-cigarettes or smokeless tobacco still contain nicotine. Talk to your healthcare provider before you use these products. education on decrease to stopping nicotine products and stop smoking hotline given 7. Alcohol use educated on decrease to stop use ETOH and risk ETOH use on mental health, and medical refer to therapy refer to group . Long-term drug therapy - Discussion Notescontinue therapy 12/13/2024 Encounter for screening for depression (ICD-10 - Z13.31) 12/13/2024 Generalized anxiety disorder (ICD-10 - F41.1) 1. Bipolar affective disorder, Depakote DR 500 mg three times a day for agitation monitor for jael and agitation Vraylar 3 mg daily - improved - educated on all rx- stablize mood, agitation, psychosis, paranoia, and jael,- on Vraylar obtain labs PCP patient reported RLS at twice a day dosing and improved when decreased to daily Risperdal hx paranoia/ psychosis Effexor ER 150 MG DAILY IN AM for depression and anxiety EDUCATED ON ALL MEDICATIONS, benefits, side effects,risk Monitor B/P educated on all medications, benefits, side effects and risk, and educated on depression, anxiety, and mood d/o and educated on compliance of medications, metabolic and movement d/o education appointment's, continue therapy discussion with patient about course of treatmentand patient instructions. education on serotonin syndrome SSRI side effects discussed including but not limited to, gastric upset, nausea, vomiting, diarrhea and/or constipation, weight changes, sexual side effects including loss of libido, increased suicidal thoughts/behavi ors in children and young adults, and serotonin syndrome. Second generation antipsychotics (SGAs) have metabolic syndrome issues with weight gain, increase in prolactin, increased waist circumference, increased lipids, and increased glucose. Thus routine monitoring of weight, metabolic labs, etc. is indicated. A general rank ordering of antipsychotics that have the greatest to the least risk of metabolic effects is olanzapine, quetiapine, risperidone, ziprasidone, and aripiprazole. However, weight gain can occur with all of these drugs and considerable variability exists among patients receiving the same drug regarding the risk of metabolic effects. Anti-psychotic agents not only increase the risk of metabolic disorder, they also increase the risk of CVA, akathisia, and movement disorders including EPS or tardive dyskinesia (more common with first generation antipsychotics) and more. [facility] 2. Generalized anxiety disorder - Buspar 10 mg three times a day- therapy hx [facility] 3. Primary insomnia -sleep disturbance sleep study [facility] 4. Irritability and anger -Depakote DR 500 mg three times a day stable 5. elevted blood pressure reading educated on healthy b/p 120/80 monitor b/p at home refer to PCP, Urgent care/ER heart healthy diet and excise limit salt intake limit soda intake and caffiene increase water 6.tobacco use and vaping Do not smoke. Nicotine and other chemicals in cigarettes and cigars can cause lung damage. Ask your healthcare provider for information if you currently smoke and need help to quit. E-cigarettes or smokeless tobacco still contain nicotine. Talk to your healthcare provider before you use these products. education on decrease to stopping nicotine products and stop smoking hotline given 7. Alcohol use- stable has decrease use educated on decrease to stop use ETOH and risk ETOH use on mental health, and medical refer to therapy refer to group 8. ADHD r/o schedule Creyos testing ADHD self reporting scale completed . Long-term drug therapy - Discussion Notescontinue therapy 11/15/2024 Bipolar affective disorder, depressed, moderate (ICD-10 - F31.32) 12/13/2024 Bipolar disorder, current episode depressed, moderate (ICD-10 - F31.32) 09/20/2024 Bipolar affective, depress, severe (ICD-10 - F31.4) 1. Bipolar affective disorder, currently depressed, Depakote DR 500 mg three times a day for agitation monitor for jael and agitation Discuss and educated on Vraylar and Caplyta for Bipolar Will add Vraylar 1.5 mg daily for 1 week then increase to 3 mg daily samples and co-pay card given Risperdal 2 mg a day for bipolar - plan to [facility] and stop rx next visit - educated on all rx- pateint will be on 2 antipsychotic presently to stablize mood, agitation, psychosis, paranoia, and jael, obtain labs PCP patient reported RLS at twice a day dosing and improved when decreased to daily Risperdal hx paranoia/ psychosis Effexor ER 150 MG DAILY IN AM for depression and anxiety EDUCATED ON ALL MEDICATIONS, benefits, side effects,risk Monitor B/P educated on all medications, benefits, side effects and risk, and educated on depression, anxiety, and mood d/o and educated on compliance of medications, metabolic and movement d/o education appointment's, continue therapy discussion with patient about course of treatmentand patient instructions. education on serotonin syndrome SSRI side effects discussed including but not limited to, gastric upset, nausea, vomiting, diarrhea and/or constipation, weight changes, sexual side effects including loss of libido, increased suicidal thoughts/behavi ors in children and young adults, and serotonin syndrome. Second generation antipsychotics (SGAs) have metabolic syndrome issues with weight gain, increase in prolactin, increased waist circumference, increased lipids, and increased glucose. Thus routine monitoring of weight, metabolic labs, etc. is indicated. A general rank ordering of antipsychotics that have the greatest to the least risk of metabolic effects is olanzapine, quetiapine, risperidone, ziprasidone, and aripiprazole. However, weight gain can occur with all of these drugs and considerable variability exists among patients receiving the same drug regarding the risk of metabolic effects. Anti-psychotic agents not only increase the risk of metabolic disorder, they also increase the risk of CVA, akathisia, and movement disorders including EPS or tardive dyskinesia (more common with first generation antipsychotics) and more. [facility] [place] 2. Generalized anxiety disorder - Buspar 10 mg three times a day- therapy hx [facility] [place] 3. Primary insomnia -sleep disturbance sleep study [facility] 4. Irritability and anger -Depakote DR 500 mg three times a day 5. elevted blood pressure reading educated on healthy b/p 120/80 monitor b/p at home refer to PCP, Urgent care/ER heart healthy diet and excise limit salt intake limit soda intake and caffiene increase water 6.tobacco use and vaping Do not smoke. Nicotine and other chemicals in cigarettes and cigars can cause lung damage. Ask your healthcare provider for information if you currently smoke and need help to quit. E-cigarettes or smokeless tobacco still contain nicotine. Talk to your healthcare provider before you use these products. education on decrease to stopping nicotine products and stop smoking hotline given 7. Alcohol use educated on decrease to stop use ETOH and risk ETOH use on mental health, and medical refer to therapy refer to group . Long-term drug therapy - Discussion Notescontinue therapy 12/13/2024 Bipolar depression (ICD-10 - F31.9) 1. Bipolar affective disorder, Depakote DR 500 mg three times a day for agitation monitor for jael and agitation Vraylar 3 mg daily - improved - educated on all rx- stablize mood, agitation, psychosis, paranoia, and jael,- on Vraylar obtain labs PCP patient reported RLS at twice a day dosing and improved when decreased to daily Risperdal hx paranoia/ psychosis Effexor ER 150 MG DAILY IN AM for depression and anxiety EDUCATED ON ALL MEDICATIONS, benefits, side effects,risk Monitor B/P educated on all medications, benefits, side effects and risk, and educated on depression, anxiety, and mood d/o and educated on compliance of medications, metabolic and movement d/o education appointment's, continue therapy discussion with patient about course of treatmentand patient instructions. education on serotonin syndrome SSRI side effects discussed including but not limited to, gastric upset, nausea, vomiting, diarrhea and/or constipation, weight changes, sexual side effects including loss of libido, increased suicidal thoughts/behavi ors in children and young adults, and serotonin syndrome. Second generation antipsychotics (SGAs) have metabolic syndrome issues with weight gain, increase in prolactin, increased waist circumference, increased lipids, and increased glucose. Thus routine monitoring of weight, metabolic labs, etc. is indicated. A general rank ordering of antipsychotics that have the greatest to the least risk of metabolic effects is olanzapine, quetiapine, risperidone, ziprasidone, and aripiprazole. However, weight gain can occur with all of these drugs and considerable variability exists among patients receiving the same drug regarding the risk of metabolic effects. Anti-psychotic agents not only increase the risk of metabolic disorder, they also increase the risk of CVA, akathisia, and movement disorders including EPS or tardive dyskinesia (more common with first generation antipsychotics) and more. [facility] 2. Generalized anxiety disorder - Buspar 10 mg three times a day- therapy hx [facility] [place] 3. Primary insomnia -sleep disturbance sleep study [facility] 4. Irritability and anger -Depakote DR 500 mg three times a day stable 5. elevted blood pressure reading educated on healthy b/p 120/80 monitor b/p at home refer to PCP, Urgent care/ER heart healthy diet and excise limit salt intake limit soda intake and caffiene increase water 6.tobacco use and vaping Do not smoke. Nicotine and other chemicals in cigarettes and cigars can cause lung damage. Ask your healthcare provider for information if you currently smoke and need help to quit. E-cigarettes or smokeless tobacco still contain nicotine. Talk to your healthcare provider before you use these products. education on decrease to stopping nicotine products and stop smoking hotline given 7. Alcohol use- stable has decrease use educated on decrease to stop use ETOH and risk ETOH use on mental health, and medical refer to therapy refer to group 8. ADHD r/o schedule Creyos testing ADHD self reporting scale completed . Long-term drug therapy - Discussion Notescontinue therapy 12/20/2024 Lack of concentration (ICD-10 - R41.840) Analysis and Recommendations 1. ADHD Screening (ASRS) vs. Cognitive Testing Results ASRS (Adult ADHD Self-Report Scale): Part A Score: 5 (Above the threshold of 3, indicative of ADHD) Part B Score: 11 (Further supporting symptoms related to ADHD) This suggests that self-reported symptoms align with ADHD characteristics . Cognitive Testing Results: Cognitive Markers Outside Typical Range: 2 Some executive function and attentional markers are within the typical range, which does not strongly support an ADHD profile. Incongruence observed: The cognitive test does not show pronounced deficits in areas typically impaired in ADHD, such as response inhibition, impulsivity, and sustained attention. 2. [place] Cognitive Strengths and Weaknesses Strengths: Planning (95th percentile): Strong ability to organize, strategize, and plan tasks. Spatial Working Memory (62nd percentile): Above average ability to hold and manipulate spatial information. Response Inhibition (Interference Ratio for Errors: 85th percentile): Strong ability to manage interference and filter out distractions. Weaknesses: Response Inhibition (Overall Reaction Time: 92nd percentile, slower than expected): Suggests potential delays in processing speed or motor responses. Attention (Reaction Time: 72nd percentile, slower than typical range): While accuracy is good, longer reaction time may indicate mild attentional inefficiency. Sustained Attention (Omission Errors: 42nd percentile, slightly below average): Some difficulties in maintaining focus, but not severe. 3. Interpretation of Incongruence ASRS suggests ADHD, but cognitive results do not fully align. Self-reported difficulties (ASRS) indicate perceived struggles with attention and executive function. Cognitive test results do not strongly confirm ADHD-related impairments (e.g., impulsivity, sustained attention deficits). Possible Explanations for the Mismatch: Compensation Strategies: The individual may have developed strategies to manage executive function difficulties. Situational ADHD Symptoms: Self-reported issues may be more noticeable in specific real-world settings (e.g., work, home) than in structured test conditions. Other Factors (Stress, Anxiety, Fatigue): These could contribute to ADHD-like symptoms, affecting self-perception but not necessarily cognitive function. 4. Recommendations Further Clinical Evaluation: Consider a clinical interview or behavioral observations to clarify real-world impact. Rule out anxiety, depression, or stress-related attentional difficulties that might mimic ADHD symptoms. Executive Function & Attention Support: If attention issues affect daily life, strategies like time management techniques, structured routines, and focus-enhancing exercises may help. Mindfulness and cognitive behavioral strategies could assist in improving self-regulation . Monitor Symptoms Over Time: If difficulties persist, periodic reassessment can track changes and guide further interventions. 12/27/2024 Generalized anxiety disorder (ICD-10 - F41.1) 1. Bipolar affective disorder, Depakote DR 500 mg three times a day for agitation monitor for jael and agitation Vraylar 3 mg daily - improved - educated on all rx- stablize mood, agitation, psychosis, paranoia, and jael,- on Vraylar obtain labs PCP patient reported RLS at twice a day dosing and improved when decreased to daily Risperdal hx paranoia/ psychosis Effexor ER 150 MG DAILY IN AM for depression and anxiety EDUCATED ON ALL MEDICATIONS, benefits, side effects,risk Monitor B/P educated on all medications, benefits, side effects and risk, and educated on depression, anxiety, and mood d/o and educated on compliance of medications, metabolic and movement d/o education appointment's, continue therapy discussion with patient about course of treatmentand patient instructions. education on serotonin syndrome SSRI side effects discussed including but not limited to, gastric upset, nausea, vomiting, diarrhea and/or constipation, weight changes, sexual side effects including loss of libido, increased suicidal thoughts/behavi ors in children and young adults, and serotonin syndrome. Second generation antipsychotics (SGAs) have metabolic syndrome issues with weight gain, increase in prolactin, increased waist circumference, increased lipids, and increased glucose. Thus routine monitoring of weight, metabolic labs, etc. is indicated. A general rank ordering of antipsychotics that have the greatest to the least risk of metabolic effects is olanzapine, quetiapine, risperidone, ziprasidone, and aripiprazole. However, weight gain can occur with all of these drugs and considerable variability exists among patients receiving the same drug regarding the risk of metabolic effects. Anti-psychotic agents not only increase the risk of metabolic disorder, they also increase the risk of CVA, akathisia, and movement disorders including EPS or tardive dyskinesia (more common with first generation antipsychotics) and more. [facility] 2. Generalized anxiety disorder - Buspar 10 mg three times a day- therapy hx [facility] [place] 3. Primary insomnia -sleep disturbance sleep study [facility] 4. Irritability and anger -Depakote DR 500 mg three times a day stable 5. elevted blood pressure reading educated on healthy b/p 120/80 monitor b/p at home refer to PCP, Urgent care/ER heart healthy diet and excise limit salt intake limit soda intake and caffiene increase water 6.tobacco use and vaping- repoted stopped vaping and aime stop smoking when complete 1/2 pack currently has 12/27/24 Do not smoke. Nicotine and other chemicals in cigarettes and cigars can cause lung damage. Ask your healthcare provider for information if you currently smoke and need help to quit. E-cigarettes or smokeless tobacco still contain nicotine. Talk to your healthcare provider before you use these products. education on decrease to stopping nicotine products and stop smoking hotline given 7. Alcohol use- stable has decrease use educated on decrease to stop use ETOH and risk ETOH use on mental health, and medical refer to therapy refer to group 8. ADHD r/o reviewed Creyos testing- indicative ADHD Score 5 Part A 6 Part B 08/16 ADHD self reporting scale completed NO CONTROL SUBSTANCE PRESCRIBED BY [facility]- CANNABIS USE- patient reported may consider stopping cannabis use Discuss and educated on non stimulates - Straterra 25 mg daily in am for 1 week, then increase to Straterra 40 mg daily in am [place] discuss and educated on hx Wellbutrin (paranoia) ADHD stimulates education Discuss with patient risk of misuse, abuse, and addiction before prescribing stimulant medicines. 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 Educate patients and their families on these serious risks, proper storage of the medicine, and proper disposal of any unused medicine. Educated patient will monitor Throughout treatment, regularly assess and monitor them for signs and symptoms of nonmedical use, addiction, and potential diversion, which may be evidenced by more frequent renewal. requests than warranted by the prescribed dosage. Random UDS [place] prescription reviewed local pharmacy in [facility], no early refills on control substance educated on non-stimulate and stimulates 9. Cannabis use NO CONTROL SUBSTANCE PRESCRIBED BY [facility] - patient reported may consider stopping cannabis use discuss random UDS Cannabis Use Education NO CONTROL SUBSTANCE PRESCRIBED BY [facility] with cannabis use Recommend decrease/stop cannabis use as it can negatively impact mood, motivation, anxiety, sleep, focus/concentra tion/memory (vigilance, elasticity, processing and attention); can also contribute to development of psychosis. Recommend decrease/stop cannabis use as it may be negatively impacting mood, motivation, anxiety, sleep, focus; can also contribute to development of psychosis Cannabis/mariju yesica information: http_s://florentino.n [place].gov/publicat ions/drugfacts/ cannabis-mariju yesica http_s://www.[employer].com/c yrdapxi-fwr-jii order-marijuana -adhd/ Discussion Notes continue therapy 03/23/2024 Generalized anxiety disorder (ICD-10 - F41.1) From Assessment 07/31/2020: History of Present Illness Client is a never 30 year old male with an 11 year old son (actually fiances son, I've raised him since he was 1). Client is the oldest of 2 children and grew up in [place], [place]. Client reports childhood was very good. He has worked for the [place] [employer] in [place] (medium/maximum ) for the past 6 years. He works about 40 hours per week. Client has been seeing Ava Zamudio NP for medications. He started seeing her due to anger issues. I've always been anxious. I saw my PCP and he suggested I see someone who specializes in this. My mood was yo-yoing. If I go out in public and can't see people's hands it sets my anxiety up. About 4 years ago he was having night terrors but they only lasted a couple of nights. I feel like I don't sleep through the night. I've worn a Fitbit and it shows that I sleep a little but not getting that deep REM sleep. Client currently reports I like to woodwork and work on cars. I help my son with his homework, we have dinner together and watch TV together. He reports fatigue, difficulty with concentration, he also feels restless much of the time. He reports he started noticing changes when he was about 14. He reports anxiety became noticeable about age 16 or 17. Current ADILENE is 14. He is reporting feeling on edge, worries about everything, has difficulty with relaxing, is restless, irritable. He also reports manic episodes, I feel on top of the world, has decreased need for sleep, more talkative than usual, racing thoughts, easily distracted, increase in goal directed activity, impulsive spending. 03/23/2024 Bipolar affective disorder, depressed, moderate (ICD-10 - F31.32) Client is struggling with the of his sister in law, who suddenly in January at the age of 32. He has been expereincing anger that she was taken so young. He also has been thinking about his own mortality (what if I or my suddenly). His grief has been compounded by working a lot of overtime at work, not really having time to process the . Therapist actively listened to client and helped him to explore the grief process. Therapist also recommend client meet with his synchronous motor assembler or staff mine warfare officer to help process the according to the teachings of his shinto. From Assessment 07/31/2020: History of Present Illness Client is a never 30 year old male with an 11 year old son (actually fiances son, I've raised him since he was 1). Client is the oldest of 2 children and grew up in [place], [place]. Client reports childhood was very good. He has worked for the [place] [employer] in [place] (medium/maximum ) for the past 6 years. He works about 40 hours per week. Client has been seeing Ava Zamudio NP for medications. He started seeing her due to anger issues. I've always been anxious. I saw my PCP and he suggested I see someone who specializes in this. My mood was yo-yoing. If I go out in public and can't see people's hands it sets my anxiety up. About 4 years ago he was having night terrors but they only lasted a couple of nights. I feel like I don't sleep through the night. I've worn a Fitbit and it shows that I sleep a little but not getting that deep REM sleep. Client currently reports I like to woodwork and work on cars. I help my son with his homework, we have dinner together and watch TV together. He reports fatigue, difficulty with concentration, he also feels restless much of the time. He reports he started noticing changes when he was about 14. He reports anxiety became noticeable about age 16 or 17. Current ADILENE is 14. He is reporting feeling on edge, worries about everything, has difficulty with relaxing, is restless, irritable. He also reports manic episodes, I feel on top of the world, has decreased need for sleep, more talkative than usual, racing thoughts, easily distracted, increase in goal directed activity, impulsive spending. 03/29/2024 Bipolar disorder, current episode depressed, moderate (ICD-10 - F31.32) 1. Bipolar affective disorder, currently depressed, moderate - Depakote DR 500 mg three times a day for agitation monitor for jael and agitation Risperdal 2 mg a day for bipolar jael - educated on rx- improved with rx patient reported RLS at twice a day dosing and improved when decreased to daily Risperdal hx paranoia/ psychosis Effexor ER 150 MG DAILY IN AM for depression and anxiety EDUCATED ON ALL MEDICATIONS Monitor B/P educated on all medications, benefits, side effects and risk, and educated on depression, anxiety, and mood d/o and educated on compliance of medications, metabolic and movement d/o education appointment's, continue therapy discussion with patient about course of treatmentand patient instructions. education on serotonin syndrome LABS OBTAIN from PCP SSRI side effects discussed including but not limited to, gastric upset, nausea, vomiting, diarrhea and/or constipation, weight changes, sexual side effects including loss of libido, increased suicidal thoughts/behavi ors in children and young adults, and serotonin syndrome. Second generation antipsychotics (SGAs) have metabolic syndrome issues with weight gain, increase in prolactin, increased waist circumference, increased lipids, and increased glucose. Thus routine monitoring of weight, metabolic labs, etc. is indicated. A general rank ordering of antipsychotics that have the greatest to the least risk of metabolic effects is olanzapine, quetiapine, risperidone, ziprasidone, and aripiprazole. However, weight gain can occur with all of these drugs and considerable variability exists among patients receiving the same drug regarding the risk of metabolic effects. Anti-psychotic agents not only increase the risk of metabolic disorder, they also increase the risk of CVA, akathisia, and movement disorders including EPS or tardive dyskinesia (more common with first generation antipsychotics) and more. F31.32: Bipolar disorder, current episode depressed, moderate risperidone 2 mg tablet - Take 1 tablet(s) once a day by oral route as directed for 90 days, for Bipolar jael. Qty: (90) tablet Refills: 0 [facility] venlafaxine ER 150 mg capsule,extende d release 24 hr - Take 1 capsule(s) every day by oral route in the morning for 90 days. Qty: (90) capsule Refills: 0 [facility]: [facility] 2. Generalized anxiety disorder - Buspar 10 mg three times a day- therapy presently in [facility] F41.1: Generalized anxiety disorder 3. Primary insomnia -sleep disturbance schedule to sleep study [facility] in [place] F51.01: Primary insomnia 4. Irritability and anger -Depakote DR 500 mg three times a day R45.4: Irritability and anger 5. 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 Bipolar affective disorder, currently depressed, moderate - Depakote DR 500 mg three times a day for agitation monitor for jael and agitation Risperdal 2 mg a day for bipolar jael - educated on rx- improved with rx patient reported RLS at twice a day dosing and improved when decreased to daily Risperdal hx paranoia/ psychosis Effexor ER 150 MG DAILY IN AM for depression and anxiety EDUCATED ON ALL MEDICATIONS Monitor B/P educated on all medications, benefits, side effects and risk, and educated on depression, anxiety, and mood d/o and educated on compliance of medications, metabolic and movement d/o education appointment's, continue therapy discussion with patient about course of treatmentand patient instructions. education on serotonin syndrome LABS OBTAIN from PCP SSRI side effects discussed including but not limited to, gastric upset, nausea, vomiting, diarrhea and/or constipation, weight changes, sexual side effects including loss of libido, increased suicidal thoughts/behavi ors in children and young adults, and serotonin syndrome. Second generation antipsychotics (SGAs) have metabolic syndrome issues with weight gain, increase in prolactin, increased waist circumference, increased lipids, and increased glucose. Thus routine monitoring of weight, metabolic labs, etc. is indicated. A general rank ordering of antipsychotics that have the greatest to the least risk of metabolic effects is olanzapine, quetiapine, risperidone, ziprasidone, and aripiprazole. However, weight gain can occur with all of these drugs and considerable variability exists among patients receiving the same drug regarding the risk of metabolic effects. Anti-psychotic agents not only increase the risk of metabolic disorder, they also increase the risk of CVA, akathisia, and movement disorders including EPS or tardive dyskinesia (more common with first generation antipsychotics) and more. F31.32: Bipolar disorder, current episode depressed, moderate risperidone 2 mg tablet - Take 1 tablet(s) once a day by oral route as directed for 90 days, for Bipolar jael. Qty: (90) tablet Refills: 0 Pharmacy: [facility] venlafaxine ER 150 mg capsule,extende d release 24 hr - Take 1 capsule(s) every day by oral route in the morning for 90 days. Qty: (90) capsule Refills: 0 Pharmacy: [facility] 2. Generalized anxiety disorder - Buspar 10 mg three times a day- therapy presently in [facility] [place] F41.1: Generalized anxiety disorder 3. Primary insomnia -sleep disturbance schedule to sleep study [facility] in [place] F51.01: Primary insomnia 4. Irritability and anger -Depakote DR 500 mg three times a day R45.4: Irritability and anger 5. 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 Bipolar affective disorder, Depakote DR 500 mg three times a day for agitation monitor for jael and agitation labs ordered Vraylar 3 mg daily - improved - educated on all rx- stablize mood, agitation, psychosis, paranoia, and jael,- on Vraylar obtain labs PCP patient reported RLS at twice a day dosing and improved when decreased to daily Risperdal hx paranoia/ psychosis Effexor ER 150 MG DAILY IN AM for depression and anxiety EDUCATED ON ALL MEDICATIONS, benefits, side effects,risk Monitor B/P educated on all medications, benefits, side effects and risk, and educated on depression, anxiety, and mood d/o and educated on compliance of medications, metabolic and movement d/o education appointment's, continue therapy discussion with patient about course of treatmentand patient instructions. education on serotonin syndrome SSRI side effects discussed including but not limited to, gastric upset, nausea, vomiting, diarrhea and/or constipation, weight changes, sexual side effects including loss of libido, increased suicidal thoughts/behavi ors in children and young adults, and serotonin syndrome. Second generation antipsychotics (SGAs) have metabolic syndrome issues with weight gain, increase in prolactin, increased waist circumference, increased lipids, and increased glucose. Thus routine monitoring of weight, metabolic labs, etc. is indicated. A general rank ordering of antipsychotics that have the greatest to the least risk of metabolic effects is olanzapine, quetiapine, risperidone, ziprasidone, and aripiprazole. However, weight gain can occur with all of these drugs and considerable variability exists among patients receiving the same drug regarding the risk of metabolic effects. Anti-psychotic agents not only increase the risk of metabolic disorder, they also increase the risk of CVA, akathisia, and movement disorders including EPS or tardive dyskinesia (more common with first generation antipsychotics) and more. [facility] [place] 2. Generalized anxiety disorder - Buspar 10 mg three times a day- therapy hx [facility] [place] 3. Primary insomnia -sleep disturbance sleep study [facility] in [place] CPAP 4. Irritability and anger -Depakote DR 500 mg three times a day stable 5. blood pressure reading educated on healthy b/p 120/80 monitor b/p at home refer to PCP, Urgent care/ER heart healthy diet and excise limit salt intake limit soda intake and caffiene increase water 6.tobacco use and vaping- repoted stopped vaping and aime stop smoking when complete 1/2 pack currently has 12/27/24 Do not smoke. Nicotine and other chemicals in cigarettes and cigars can cause lung damage. Ask your healthcare provider for information if you currently smoke and need help to quit. E-cigarettes or smokeless tobacco still contain nicotine. Talk to your healthcare provider before you use these products. education on decrease to stopping nicotine products and stop smoking hotline given 7. Alcohol use- stable has decrease use educated on decrease to stop use ETOH and risk ETOH use on mental health, and medical refer to therapy refer to group 8. ADHD r/o reviewed Crey[employer] testing- indicative ADHD Score 5 Part A 5/6 Part B 08/16 ADHD self reporting scale completed NO CONTROL SUBSTANCE PRESCRIBED BY [facility]- CANNABIS USE- patient reported may consider stopping cannabis use Discuss and educated on non stimulates - Increase Straterra 60 mg daily in am hx Wellbutrin (paranoia) ADHD stimulates education Discuss with patient risk of misuse, abuse, and addiction before prescribing stimulant medicines. 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 Educate patients and their families on these serious risks, proper storage of the medicine, and proper disposal of any unused medicine. Educated patient will monitor Throughout treatment, regularly assess and monitor them for signs and symptoms of nonmedical use, addiction, and potential diversion, which may be evidenced by more frequent renewal. requests than warranted by the prescribed dosage. Random UDS [place] prescription reviewed local pharmacy in [facility], no early refills on control substance educated on non-stimulate and stimulates 9. Cannabis use NO CONTROL SUBSTANCE PRESCRIBED BY [facility] - patient reported may consider stopping cannabis use discuss random UDS Cannabis Use Education NO CONTROL SUBSTANCE PRESCRIBED BY [facility] with cannabis use Recommend decrease/stop cannabis use as it can negatively impact mood, motivation, anxiety, sleep, focus/concentra tion/memory (vigilance, elasticity, processing and attention); can also contribute to development of psychosis. Recommend decrease/stop cannabis use as it may be negatively impacting mood, motivation, anxiety, sleep, focus; can also contribute to development of psychosis Cannabis/costaju yesica information: http_s://florentino.n [place].gov/publicat ions/drugfacts/ cannabis-mariju yesica http_s://www.[employer]/c ktedpku-dfu-yrx order-marijuana -adhd/ Discussion Notes continue therapy 02/07/2025 Primary insomnia (ICD-10 - F51.01) 1. Bipolar affective disorder, Depakote DR 500 mg three times a day for agitation monitor for jael and agitation labs ordered Vraylar 3 mg daily - improved - educated on all rx- stablize mood, agitation, psychosis, paranoia, and jael,- on Vraylar obtain labs PCP patient reported RLS at twice a day dosing and improved when decreased to daily Risperdal hx paranoia/ psychosis Effexor ER 150 MG DAILY IN AM for depression and anxiety EDUCATED ON ALL MEDICATIONS, benefits, side effects,risk Monitor B/P educated on all medications, benefits, side effects and risk, and educated on depression, anxiety, and mood d/o and educated on compliance of medications, metabolic and movement d/o education appointment's, continue therapy discussion with patient about course of treatmentand patient instructions. education on serotonin syndrome SSRI side effects discussed including but not limited to, gastric upset, nausea, vomiting, diarrhea and/or constipation, weight changes, sexual side effects including loss of libido, increased suicidal thoughts/behavi ors in children and young adults, and serotonin syndrome. Second generation antipsychotics (SGAs) have metabolic syndrome issues with weight gain, increase in prolactin, increased waist circumference, increased lipids, and increased glucose. Thus routine monitoring of weight, metabolic labs, etc. is indicated. A general rank ordering of antipsychotics that have the greatest to the least risk of metabolic effects is olanzapine, quetiapine, risperidone, ziprasidone, and aripiprazole. However, weight gain can occur with all of these drugs and considerable variability exists among patients receiving the same drug regarding the risk of metabolic effects. Anti-psychotic agents not only increase the risk of metabolic disorder, they also increase the risk of CVA, akathisia, and movement disorders including EPS or tardive dyskinesia (more common with first generation antipsychotics) and more. [facility] [place] 2. Generalized anxiety disorder - Buspar 10 mg three times a day- therapy hx [facility] [place] 3. Primary insomnia -sleep disturbance sleep study [facility] in [facility] 4. Irritability and anger -Depakote DR 500 mg three times a day stable 5. blood pressure reading educated on healthy b/p 120/80 monitor b/p at home refer to PCP, Urgent care/ER heart healthy diet and excise limit salt intake limit soda intake and caffiene increase water 6.tobacco use and vaping- repoted stopped vaping and aime stop smoking when complete 1/2 pack currently has 12/27/24 Do not smoke. Nicotine and other chemicals in cigarettes and cigars can cause lung damage. Ask your healthcare provider for information if you currently smoke and need help to quit. E-cigarettes or smokeless tobacco still contain nicotine. Talk to your healthcare provider before you use these products. education on decrease to stopping nicotine products and stop smoking hotline given 7. Alcohol use- stable has decrease use educated on decrease to stop use ETOH and risk ETOH use on mental health, and medical refer to therapy refer to group 8. ADHD r/o reviewed Crey[employer] testing- indicative ADHD Score 5 Part A 5/6 Part B 08/16 ADHD self reporting scale completed NO CONTROL SUBSTANCE PRESCRIBED BY [facility]- CANNABIS USE- patient reported may consider stopping cannabis use Discuss and educated on non stimulates - Increase Straterra 60 mg daily in am hx Wellbutrin (paranoia) ADHD stimulates education Discuss with patient risk of misuse, abuse, and addiction before prescribing stimulant medicines. 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 Educate patients and their families on these serious risks, proper storage of the medicine, and proper disposal of any unused medicine. Educated patient will monitor Throughout treatment, regularly assess and monitor them for signs and symptoms of nonmedical use, addiction, and potential diversion, which may be evidenced by more frequent renewal. requests than warranted by the prescribed dosage. Random UDS [place] prescription reviewed local pharmacy in [place], no early refills on control substance educated on non-stimulate and stimulates 9. Cannabis use NO CONTROL SUBSTANCE PRESCRIBED BY [facility] - patient reported may consider stopping cannabis use discuss random UDS Cannabis Use Education NO CONTROL SUBSTANCE PRESCRIBED BY [facility] with cannabis use Recommend decrease/stop cannabis use as it can negatively impact mood, motivation, anxiety, sleep, focus/concentra tion/memory (vigilance, elasticity, processing and attention); can also contribute to development of psychosis. Recommend decrease/stop cannabis use as it may be negatively impacting mood, motivation, anxiety, sleep, focus; can also contribute to development of psychosis Cannabis/mariju yesica information: http_s://florentino.n ih.gov/publicat ions/drugfacts/ cannabis-mariju yesica http_s://www.[employer]/c rtqsahu-egw-dla order-marijuana -adhd/ Discussion Notes continue therapy 12/27/2024 Bipolar depression (ICD-10 - F31.9) 1. Bipolar affective disorder, Depakote DR 500 mg three times a day for agitation monitor for jael and agitation Vraylar 3 mg daily - improved - educated on all rx- stablize mood, agitation, psychosis, paranoia, and jael,- on Vraylar obtain labs PCP patient reported RLS at twice a day dosing and improved when decreased to daily Risperdal hx paranoia/ psychosis Effexor ER 150 MG DAILY IN AM for depression and anxiety EDUCATED ON ALL MEDICATIONS, benefits, side effects,risk Monitor B/P educated on all medications, benefits, side effects and risk, and educated on depression, anxiety, and mood d/o and educated on compliance of medications, metabolic and movement d/o education appointment's, continue therapy discussion with patient about course of treatmentand patient instructions. education on serotonin syndrome SSRI side effects discussed including but not limited to, gastric upset, nausea, vomiting, diarrhea and/or constipation, weight changes, sexual side effects including loss of libido, increased suicidal thoughts/behavi ors in children and young adults, and serotonin syndrome. Second generation antipsychotics (SGAs) have metabolic syndrome issues with weight gain, increase in prolactin, increased waist circumference, increased lipids, and increased glucose. Thus routine monitoring of weight, metabolic labs, etc. is indicated. A general rank ordering of antipsychotics that have the greatest to the least risk of metabolic effects is olanzapine, quetiapine, risperidone, ziprasidone, and aripiprazole. However, weight gain can occur with all of these drugs and considerable variability exists among patients receiving the same drug regarding the risk of metabolic effects. Anti-psychotic agents not only increase the risk of metabolic disorder, they also increase the risk of CVA, akathisia, and movement disorders including EPS or tardive dyskinesia (more common with first generation antipsychotics) and more. [facility] [place] 2. Generalized anxiety disorder - Buspar 10 mg three times a day- therapy hx [facility] [place] 3. Primary insomnia -sleep disturbance sleep study [facility] 4. Irritability and anger -Depakote DR 500 mg three times a day stable 5. elevted blood pressure reading educated on healthy b/p 120/80 monitor b/p at home refer to PCP, Urgent care/ER heart healthy diet and excise limit salt intake limit soda intake and caffiene increase water 6.tobacco use and vaping- repoted stopped vaping and aime stop smoking when complete 1/2 pack currently has 12/27/24 Do not smoke. Nicotine and other chemicals in cigarettes and cigars can cause lung damage. Ask your healthcare provider for information if you currently smoke and need help to quit. E-cigarettes or smokeless tobacco still contain nicotine. Talk to your healthcare provider before you use these products. education on decrease to stopping nicotine products and stop smoking hotline given 7. Alcohol use- stable has decrease use educated on decrease to stop use ETOH and risk ETOH use on mental health, and medical refer to therapy refer to group 8. ADHD r/o reviewed [facility]reyos testing- indicative ADHD Score 5 Part A 5/6 Part B 08/16 ADHD self reporting scale completed NO CONTROL SUBSTANCE PRESCRIBED BY [facility]- CANNABIS USE- patient reported may consider stopping cannabis use Discuss and educated on non stimulates - Straterra 25 mg daily in am for 1 week, then increase to Straterra 40 mg daily in am [place] discuss and educated on hx Wellbutrin (paranoia) ADHD stimulates education Discuss with patient risk of misuse, abuse, and addiction before prescribing stimulant medicines. 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 Educate patients and their families on these serious risks, proper storage of the medicine, and proper disposal of any unused medicine. Educated patient will monitor Throughout treatment, regularly assess and monitor them for signs and symptoms of nonmedical use, addiction, and potential diversion, which may be evidenced by more frequent renewal. requests than warranted by the prescribed dosage. Random UDS [place] prescription reviewed local pharmacy in [facility], no early refills on control substance educated on non-stimulate and stimulates 9. Cannabis use NO CONTROL SUBSTANCE PRESCRIBED BY [facility] - patient reported may consider stopping cannabis use discuss random UDS Cannabis Use Education NO CONTROL SUBSTANCE PRESCRIBED BY [facility] with cannabis use Recommend decrease/stop cannabis use as it can negatively impact mood, motivation, anxiety, sleep, focus/concentra tion/memory (vigilance, elasticity, processing and attention); can also contribute to development of psychosis. Recommend decrease/stop cannabis use as it may be negatively impacting mood, motivation, anxiety, sleep, focus; can also contribute to development of psychosis Cannabis/mariju yesica information: http_s://florentino.n ih.gov/publicat ions/drugfacts/ cannabis-mariju yesica http_s://[employer]/c fsqawjq-xre-alq order-marijuana -adhd/ Discussion Notes continue therapy 02/07/2025 Bipolar depression (ICD-10 - F31.9) 1. Bipolar affective disorder, Depakote DR 500 mg three times a day for agitation monitor for jael and agitation labs ordered Vraylar 3 mg daily - improved - educated on all rx- stablize mood, agitation, psychosis, paranoia, and jael,- on Vraylar obtain labs PCP patient reported RLS at twice a day dosing and improved when decreased to daily Risperdal hx paranoia/ psychosis Effexor ER 150 MG DAILY IN AM for depression and anxiety EDUCATED ON ALL MEDICATIONS, benefits, side effects,risk Monitor B/P educated on all medications, benefits, side effects and risk, and educated on depression, anxiety, and mood d/o and educated on compliance of medications, metabolic and movement d/o education appointment's, continue therapy discussion with patient about course of treatmentand patient instructions. education on serotonin syndrome SSRI side effects discussed including but not limited to, gastric upset, nausea, vomiting, diarrhea and/or constipation, weight changes, sexual side effects including loss of libido, increased suicidal thoughts/behavi ors in children and young adults, and serotonin syndrome. Second generation antipsychotics (SGAs) have metabolic syndrome issues with weight gain, increase in prolactin, increased waist circumference, increased lipids, and increased glucose. Thus routine monitoring of weight, metabolic labs, etc. is indicated. A general rank ordering of antipsychotics that have the greatest to the least risk of metabolic effects is olanzapine, quetiapine, risperidone, ziprasidone, and aripiprazole. However, weight gain can occur with all of these drugs and considerable variability exists among patients receiving the same drug regarding the risk of metabolic effects. Anti-psychotic agents not only increase the risk of metabolic disorder, they also increase the risk of CVA, akathisia, and movement disorders including EPS or tardive dyskinesia (more common with first generation antipsychotics) and more. [facility] [place] 2. Generalized anxiety disorder - Buspar 10 mg three times a day- therapy hx [facility] [place] 3. Primary insomnia -sleep disturbance sleep study [facility] 4. Irritability and anger -Depakote DR 500 mg three times a day stable 5. blood pressure reading educated on healthy b/p 120/80 monitor b/p at home refer to PCP, Urgent care/ER heart healthy diet and excise limit salt intake limit soda intake and caffiene increase water 6.tobacco use and vaping- repoted stopped vaping and aime stop smoking when complete 1/2 pack currently has 12/27/24 Do not smoke. Nicotine and other chemicals in cigarettes and cigars can cause lung damage. Ask your healthcare provider for information if you currently smoke and need help to quit. E-cigarettes or smokeless tobacco still contain nicotine. Talk to your healthcare provider before you use these products. education on decrease to stopping nicotine products and stop smoking hotline given 7. Alcohol use- stable has decrease use educated on decrease to stop use ETOH and risk ETOH use on mental health, and medical refer to therapy refer to group 8. ADHD r/o reviewed Creyos testing- indicative ADHD Score 5 Part A 5/6 Part B 08/16 ADHD self reporting scale completed NO CONTROL SUBSTANCE PRESCRIBED BY [facility]- CANNABIS USE- patient reported may consider stopping cannabis use Discuss and educated on non stimulates - Increase Straterra 60 mg daily in am hx Wellbutrin (paranoia) ADHD stimulates education Discuss with patient risk of misuse, abuse, and addiction before prescribing stimulant medicines. 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 Educate patients and their families on these serious risks, proper storage of the medicine, and proper disposal of any unused medicine. Educated patient will monitor Throughout treatment, regularly assess and monitor them for signs and symptoms of nonmedical use, addiction, and potential diversion, which may be evidenced by more frequent renewal. requests than warranted by the prescribed dosage. Random UDS [place] prescription reviewed local pharmacy in [place], no early refills on control substance educated on non-stimulate and stimulates 9. Cannabis use NO CONTROL SUBSTANCE PRESCRIBED BY [facility] - patient reported may consider stopping cannabis use discuss random UDS Cannabis Use Education NO CONTROL SUBSTANCE PRESCRIBED BY [facility] with cannabis use Recommend decrease/stop cannabis use as it can negatively impact mood, motivation, anxiety, sleep, focus/concentra tion/memory (vigilance, elasticity, processing and attention); can also contribute to development of psychosis. Recommend decrease/stop cannabis use as it may be negatively impacting mood, motivation, anxiety, sleep, focus; can also contribute to development of psychosis Cannabis/mariju yesica information: http_s://florentino.n ih.gov/publicat ions/drugfacts/ cannabis-mariju yesica http_s://www.Exo/c itczumy-vnw-vvz order-marijuana -adhd/ Discussion Notes continue therapy 03/29/2024 Primary insomnia (ICD-10 - F51.01) 1. Bipolar affective disorder, currently depressed, moderate - Depakote DR 500 mg three times a day for agitation monitor for jael and agitation Risperdal 2 mg a day for bipolar jael - educated on rx- improved with rx patient reported RLS at twice a day dosing and improved when decreased to daily Risperdal hx paranoia/ psychosis Effexor ER 150 MG DAILY IN AM for depression and anxiety EDUCATED ON ALL MEDICATIONS Monitor B/P educated on all medications, benefits, side effects and risk, and educated on depression, anxiety, and mood d/o and educated on compliance of medications, metabolic and movement d/o education appointment's, continue therapy discussion with patient about course of treatmentand patient instructions. education on serotonin syndrome LABS OBTAIN from PCP SSRI side effects discussed including but not limited to, gastric upset, nausea, vomiting, diarrhea and/or constipation, weight changes, sexual side effects including loss of libido, increased suicidal thoughts/behavi ors in children and young adults, and serotonin syndrome. Second generation antipsychotics (SGAs) have metabolic syndrome issues with weight gain, increase in prolactin, increased waist circumference, increased lipids, and increased glucose. Thus routine monitoring of weight, metabolic labs, etc. is indicated. A general rank ordering of antipsychotics that have the greatest to the least risk of metabolic effects is olanzapine, quetiapine, risperidone, ziprasidone, and aripiprazole. However, weight gain can occur with all of these drugs and considerable variability exists among patients receiving the same drug regarding the risk of metabolic effects. Anti-psychotic agents not only increase the risk of metabolic disorder, they also increase the risk of CVA, akathisia, and movement disorders including EPS or tardive dyskinesia (more common with first generation antipsychotics) and more. F31.32: Bipolar disorder, current episode depressed, moderate risperidone 2 mg tablet - Take 1 tablet(s) once a day by oral route as directed for 90 days, for Bipolar jael. Qty: (90) tablet Refills: 0 [facility]: [facility] venlafaxine ER 150 mg capsule,extende d release 24 hr - Take 1 capsule(s) every day by oral route in the morning for 90 days. Qty: (90) capsule Refills: 0 Pharmacy: [facility] 2. Generalized anxiety disorder - Buspar 10 mg three times a day- therapy presently in [facility] [place] F41.1: Generalized anxiety disorder 3. Primary insomnia -sleep disturbance schedule to sleep study [facility] in [place] F51.01: Primary insomnia 4. Irritability and anger -Depakote DR 500 mg three times a day R45.4: Irritability and anger 5. 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 Bipolar affective disorder, Depakote DR 500 mg three times a day for agitation monitor for jael and agitation Vraylar 3 mg daily - improved - educated on all rx- stablize mood, agitation, psychosis, paranoia, and jael,- on Vraylar obtain labs PCP patient reported RLS at twice a day dosing and improved when decreased to daily Risperdal hx paranoia/ psychosis Effexor ER 150 MG DAILY IN AM for depression and anxiety EDUCATED ON ALL MEDICATIONS, benefits, side effects,risk Monitor B/P educated on all medications, benefits, side effects and risk, and educated on depression, anxiety, and mood d/o and educated on compliance of medications, metabolic and movement d/o education appointment's, continue therapy discussion with patient about course of treatmentand patient instructions. education on serotonin syndrome SSRI side effects discussed including but not limited to, gastric upset, nausea, vomiting, diarrhea and/or constipation, weight changes, sexual side effects including loss of libido, increased suicidal thoughts/behavi ors in children and young adults, and serotonin syndrome. Second generation antipsychotics (SGAs) have metabolic syndrome issues with weight gain, increase in prolactin, increased waist circumference, increased lipids, and increased glucose. Thus routine monitoring of weight, metabolic labs, etc. is indicated. A general rank ordering of antipsychotics that have the greatest to the least risk of metabolic effects is olanzapine, quetiapine, risperidone, ziprasidone, and aripiprazole. However, weight gain can occur with all of these drugs and considerable variability exists among patients receiving the same drug regarding the risk of metabolic effects. Anti-psychotic agents not only increase the risk of metabolic disorder, they also increase the risk of CVA, akathisia, and movement disorders including EPS or tardive dyskinesia (more common with first generation antipsychotics) and more. [facility] 2. Generalized anxiety disorder - Buspar 10 mg three times a day- therapy hx [facility] 3. Primary insomnia -sleep disturbance sleep study [facility] in [facility] 4. Irritability and anger -Depakote DR 500 mg three times a day stable 5. elevted blood pressure reading educated on healthy b/p 120/80 monitor b/p at home refer to PCP, Urgent care/ER heart healthy diet and excise limit salt intake limit soda intake and caffiene increase water 6.tobacco use and vaping- repoted stopped vaping and aime stop smoking when complete 1/2 pack currently has 12/27/24 Do not smoke. Nicotine and other chemicals in cigarettes and cigars can cause lung damage. Ask your healthcare provider for information if you currently smoke and need help to quit. E-cigarettes or smokeless tobacco still contain nicotine. Talk to your healthcare provider before you use these products. education on decrease to stopping nicotine products and stop smoking hotline given 7. Alcohol use- stable has decrease use educated on decrease to stop use ETOH and risk ETOH use on mental health, and medical refer to therapy refer to group 8. ADHD r/o reviewed [facility] testing- indicative ADHD Score 5 Part A 5/6 Part B 08/16 ADHD self reporting scale completed NO CONTROL SUBSTANCE PRESCRIBED BY [facility]- CANNABIS USE- patient reported may consider stopping cannabis use Discuss and educated on non stimulates - Straterra 25 mg daily in am for 1 week, then increase to Straterra 40 mg daily in am [place] discuss and educated on hx Wellbutrin (paranoia) ADHD stimulates education Discuss with patient risk of misuse, abuse, and addiction before prescribing stimulant medicines. 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 Educate patients and their families on these serious risks, proper storage of the medicine, and proper disposal of any unused medicine. Educated patient will monitor Throughout treatment, regularly assess and monitor them for signs and symptoms of nonmedical use, addiction, and potential diversion, which may be evidenced by more frequent renewal. requests than warranted by the prescribed dosage. Random UDS [place] prescription reviewed local pharmacy in [facility], no early refills on control substance educated on non-stimulate and stimulates 9. Cannabis use NO CONTROL SUBSTANCE PRESCRIBED BY [facility] - patient reported may consider stopping cannabis use discuss random UDS Cannabis Use Education NO CONTROL SUBSTANCE PRESCRIBED BY [facility] with cannabis use Recommend decrease/stop cannabis use as it can negatively impact mood, motivation, anxiety, sleep, focus/concentra tion/memory (vigilance, elasticity, processing and attention); can also contribute to development of psychosis. Recommend decrease/stop cannabis use as it may be negatively impacting mood, motivation, anxiety, sleep, focus; can also contribute to development of psychosis Cannabis/mariju yesica information: http_s://[place].gov/publicat ions/drugfacts/ cannabis-mariju yesica http_s://www.[employer]/c lmhihau-tet-pdg order-marijuana -adhd/ Discussion Notes continue therapy 12/13/2024 Generalized anxiety disorder (ICD-10 - F41.1) 12/13/2024 Primary insomnia (ICD-10 - F51.01) 1. Bipolar affective disorder, Depakote DR 500 mg three times a day for agitation monitor for jael and agitation Vraylar 3 mg daily - improved - educated on all rx- stablize mood, agitation, psychosis, paranoia, and jael,- on Vraylar obtain labs PCP patient reported RLS at twice a day dosing and improved when decreased to daily Risperdal hx paranoia/ psychosis Effexor ER 150 MG DAILY IN AM for depression and anxiety EDUCATED ON ALL MEDICATIONS, benefits, side effects,risk Monitor B/P educated on all medications, benefits, side effects and risk, and educated on depression, anxiety, and mood d/o and educated on compliance of medications, metabolic and movement d/o education appointment's, continue therapy discussion with patient about course of treatmentand patient instructions. education on serotonin syndrome SSRI side effects discussed including but not limited to, gastric upset, nausea, vomiting, diarrhea and/or constipation, weight changes, sexual side effects including loss of libido, increased suicidal thoughts/behavi ors in children and young adults, and serotonin syndrome. Second generation antipsychotics (SGAs) have metabolic syndrome issues with weight gain, increase in prolactin, increased waist circumference, increased lipids, and increased glucose. Thus routine monitoring of weight, metabolic labs, etc. is indicated. A general rank ordering of antipsychotics that have the greatest to the least risk of metabolic effects is olanzapine, quetiapine, risperidone, ziprasidone, and aripiprazole. However, weight gain can occur with all of these drugs and considerable variability exists among patients receiving the same drug regarding the risk of metabolic effects. Anti-psychotic agents not only increase the risk of metabolic disorder, they also increase the risk of CVA, akathisia, and movement disorders including EPS or tardive dyskinesia (more common with first generation antipsychotics) and more. [facility] 2. Generalized anxiety disorder - Buspar 10 mg three times a day- therapy hx [facility] 3. Primary insomnia -sleep disturbance sleep study [facility] in [facility] 4. Irritability and anger -Depakote DR 500 mg three times a day stable 5. elevted blood pressure reading educated on healthy b/p 120/80 monitor b/p at home refer to PCP, Urgent care/ER heart healthy diet and excise limit salt intake limit soda intake and caffiene increase water 6.tobacco use and vaping Do not smoke. Nicotine and other chemicals in cigarettes and cigars can cause lung damage. Ask your healthcare provider for information if you currently smoke and need help to quit. E-cigarettes or smokeless tobacco still contain nicotine. Talk to your healthcare provider before you use these products. education on decrease to stopping nicotine products and stop smoking hotline given 7. Alcohol use- stable has decrease use educated on decrease to stop use ETOH and risk ETOH use on mental health, and medical refer to therapy refer to group 8. ADHD r/o schedule [facility] testing ADHD self reporting scale completed . Long-term drug therapy - Discussion Notescontinue therapy 09/20/2024 Primary insomnia (ICD-10 - F51.01) 1. Bipolar affective disorder, currently depressed, Depakote DR 500 mg three times a day for agitation monitor for jael and agitation Discuss and educated on Vraylar and Caplyta for Bipolar Will add Vraylar 1.5 mg daily for 1 week then increase to 3 mg daily samples and co-pay card given Risperdal 2 mg a day for bipolar - plan to [facility] and stop rx next visit - educated on all rx- pateint will be on 2 antipsychotic presently to stablize mood, agitation, psychosis, paranoia, and jael, obtain labs PCP patient reported RLS at twice a day dosing and improved when decreased to daily Risperdal hx paranoia/ psychosis Effexor ER 150 MG DAILY IN AM for depression and anxiety EDUCATED ON ALL MEDICATIONS, benefits, side effects,risk Monitor B/P educated on all medications, benefits, side effects and risk, and educated on depression, anxiety, and mood d/o and educated on compliance of medications, metabolic and movement d/o education appointment's, continue therapy discussion with patient about course of treatmentand patient instructions. education on serotonin syndrome SSRI side effects discussed including but not limited to, gastric upset, nausea, vomiting, diarrhea and/or constipation, weight changes, sexual side effects including loss of libido, increased suicidal thoughts/behavi ors in children and young adults, and serotonin syndrome. Second generation antipsychotics (SGAs) have metabolic syndrome issues with weight gain, increase in prolactin, increased waist circumference, increased lipids, and increased glucose. Thus routine monitoring of weight, metabolic labs, etc. is indicated. A general rank ordering of antipsychotics that have the greatest to the least risk of metabolic effects is olanzapine, quetiapine, risperidone, ziprasidone, and aripiprazole. However, weight gain can occur with all of these drugs and considerable variability exists among patients receiving the same drug regarding the risk of metabolic effects. Anti-psychotic agents not only increase the risk of metabolic disorder, they also increase the risk of CVA, akathisia, and movement disorders including EPS or tardive dyskinesia (more common with first generation antipsychotics) and more. [facility] 2. Generalized anxiety disorder - Buspar 10 mg three times a day- therapy hx [facility] [place] 3. Primary insomnia -sleep disturbance sleep study [facility] in [facility] 4. Irritability and anger -Depakote DR 500 mg three times a day 5. elevted blood pressure reading educated on healthy b/p 120/80 monitor b/p at home refer to PCP, Urgent care/ER heart healthy diet and excise limit salt intake limit soda intake and caffiene increase water 6.tobacco use and vaping Do not smoke. Nicotine and other chemicals in cigarettes and cigars can cause lung damage. Ask your healthcare provider for information if you currently smoke and need help to quit. E-cigarettes or smokeless tobacco still contain nicotine. Talk to your healthcare provider before you use these products. education on decrease to stopping nicotine products and stop smoking hotline given 7. Alcohol use educated on decrease to stop use ETOH and risk ETOH use on mental health, and medical refer to therapy refer to group . Long-term drug therapy - Discussion Notescontinue therapy 06/21/2024 Generalized anxiety disorder (ICD-10 - F41.1) 1. Bipolar affective disorder, currently depressed, moderate - Depakote DR 500 mg three times a day for agitation monitor for jael and agitation Risperdal 2 mg a day for bipolar jael - educated on rx- improved with rx patient reported RLS at twice a day dosing and improved when decreased to daily Risperdal hx paranoia/ psychosis Effexor ER 150 MG DAILY IN AM for depression and anxiety EDUCATED ON ALL MEDICATIONS, benefits, side effects,risk Monitor B/P educated on all medications, benefits, side effects and risk, and educated on depression, anxiety, and mood d/o and educated on compliance of medications, metabolic and movement d/o education appointment's, continue therapy discussion with patient about course of treatmentand patient instructions. education on serotonin syndrome LABS ordered SSRI side effects discussed including but not limited to, gastric upset, nausea, vomiting, diarrhea and/or constipation, weight changes, sexual side effects including loss of libido, increased suicidal thoughts/behavi ors in children and young adults, and serotonin syndrome. Second generation antipsychotics (SGAs) have metabolic syndrome issues with weight gain, increase in prolactin, increased waist circumference, increased lipids, and increased glucose. Thus routine monitoring of weight, metabolic labs, etc. is indicated. A general rank ordering of antipsychotics that have the greatest to the least risk of metabolic effects is olanzapine, quetiapine, risperidone, ziprasidone, and aripiprazole. However, weight gain can occur with all of these drugs and considerable variability exists among patients receiving the same drug regarding the risk of metabolic effects. Anti-psychotic agents not only increase the risk of metabolic disorder, they also increase the risk of CVA, akathisia, and movement disorders including EPS or tardive dyskinesia (more common with first generation antipsychotics) and more. [facility] 2. Generalized anxiety disorder - Buspar 10 mg three times a day- therapy hx [facility] [place] 3. Primary insomnia -sleep disturbance schedule to sleep study [facility] in [place] 4. Irritability and anger -Depakote DR 500 mg three times a day 5. Long-term drug therapy - Discussion Notescontinue therapy 11/15/2024 Generalized anxiety disorder (ICD-10 - F41.1) 06/21/2024 Primary insomnia (ICD-10 - F51.01) 1. Bipolar affective disorder, currently depressed, moderate - Depakote DR 500 mg three times a day for agitation monitor for jael and agitation Risperdal 2 mg a day for bipolar jael - educated on rx- improved with rx patient reported RLS at twice a day dosing and improved when decreased to daily Risperdal hx paranoia/ psychosis Effexor ER 150 MG DAILY IN AM for depression and anxiety EDUCATED ON ALL MEDICATIONS, benefits, side effects,risk Monitor B/P educated on all medications, benefits, side effects and risk, and educated on depression, anxiety, and mood d/o and educated on compliance of medications, metabolic and movement d/o education appointment's, continue therapy discussion with patient about course of treatmentand patient instructions. education on serotonin syndrome LABS ordered SSRI side effects discussed including but not limited to, gastric upset, nausea, vomiting, diarrhea and/or constipation, weight changes, sexual side effects including loss of libido, increased suicidal thoughts/behavi ors in children and young adults, and serotonin syndrome. Second generation antipsychotics (SGAs) have metabolic syndrome issues with weight gain, increase in prolactin, increased waist circumference, increased lipids, and increased glucose. Thus routine monitoring of weight, metabolic labs, etc. is indicated. A general rank ordering of antipsychotics that have the greatest to the least risk of metabolic effects is olanzapine, quetiapine, risperidone, ziprasidone, and aripiprazole. However, weight gain can occur with all of these drugs and considerable variability exists among patients receiving the same drug regarding the risk of metabolic effects. Anti-psychotic agents not only increase the risk of metabolic disorder, they also increase the risk of CVA, akathisia, and movement disorders including EPS or tardive dyskinesia (more common with first generation antipsychotics) and more. [facility] 2. Generalized anxiety disorder - Buspar 10 mg three times a day- therapy hx [facility] 3. Primary insomnia -sleep disturbance schedule to sleep study [facility] in [place] 4. Irritability and anger -Depakote DR 500 mg three times a day 5. Long-term drug therapy - Discussion Notescontinue therapy 09/20/2024 Irritability and anger (ICD-10 - R45.4) 1. Bipolar affective disorder, currently depressed, Depakote DR 500 mg three times a day for agitation monitor for jael and agitation Discuss and educated on Vraylar and Caplyta for Bipolar Will add Vraylar 1.5 mg daily for 1 week then increase to 3 mg daily samples and co-pay card given Risperdal 2 mg a day for bipolar - plan to [facility] and stop rx next visit - educated on all rx- pateint will be on 2 antipsychotic presently to stablize mood, agitation, psychosis, paranoia, and jael, obtain labs PCP patient reported RLS at twice a day dosing and improved when decreased to daily Risperdal hx paranoia/ psychosis Effexor ER 150 MG DAILY IN AM for depression and anxiety EDUCATED ON ALL MEDICATIONS, benefits, side effects,risk Monitor B/P educated on all medications, benefits, side effects and risk, and educated on depression, anxiety, and mood d/o and educated on compliance of medications, metabolic and movement d/o education appointment's, continue therapy discussion with patient about course of treatmentand patient instructions. education on serotonin syndrome SSRI side effects discussed including but not limited to, gastric upset, nausea, vomiting, diarrhea and/or constipation, weight changes, sexual side effects including loss of libido, increased suicidal thoughts/behavi ors in children and young adults, and serotonin syndrome. Second generation antipsychotics (SGAs) have metabolic syndrome issues with weight gain, increase in prolactin, increased waist circumference, increased lipids, and increased glucose. Thus routine monitoring of weight, metabolic labs, etc. is indicated. A general rank ordering of antipsychotics that have the greatest to the least risk of metabolic effects is olanzapine, quetiapine, risperidone, ziprasidone, and aripiprazole. However, weight gain can occur with all of these drugs and considerable variability exists among patients receiving the same drug regarding the risk of metabolic effects. Anti-psychotic agents not only increase the risk of metabolic disorder, they also increase the risk of CVA, akathisia, and movement disorders including EPS or tardive dyskinesia (more common with first generation antipsychotics) and more. [facility] 2. Generalized anxiety disorder - Buspar 10 mg three times a day- therapy hx [facility] [place] 3. Primary insomnia -sleep disturbance sleep study [facility] 4. Irritability and anger -Depakote DR 500 mg three times a day 5. elevted blood pressure reading educated on healthy b/p 120/80 monitor b/p at home refer to PCP, Urgent care/ER heart healthy diet and excise limit salt intake limit soda intake and caffiene increase water 6.tobacco use and vaping Do not smoke. Nicotine and other chemicals in cigarettes and cigars can cause lung damage. Ask your healthcare provider for information if you currently smoke and need help to quit. E-cigarettes or smokeless tobacco still contain nicotine. Talk to your healthcare provider before you use these products. education on decrease to stopping nicotine products and stop smoking hotline given 7. Alcohol use educated on decrease to stop use ETOH and risk ETOH use on mental health, and medical refer to therapy refer to group . Long-term drug therapy - Discussion Notescontinue therapy 12/13/2024 Irritability and anger (ICD-10 - R45.4) 1. Bipolar affective disorder, Depakote DR 500 mg three times a day for agitation monitor for jael and agitation Vraylar 3 mg daily - improved - educated on all rx- stablize mood, agitation, psychosis, paranoia, and jael,- on Vraylar obtain labs PCP patient reported RLS at twice a day dosing and improved when decreased to daily Risperdal hx paranoia/ psychosis Effexor ER 150 MG DAILY IN AM for depression and anxiety EDUCATED ON ALL MEDICATIONS, benefits, side effects,risk Monitor B/P educated on all medications, benefits, side effects and risk, and educated on depression, anxiety, and mood d/o and educated on compliance of medications, metabolic and movement d/o education appointment's, continue therapy discussion with patient about course of treatmentand patient instructions. education on serotonin syndrome SSRI side effects discussed including but not limited to, gastric upset, nausea, vomiting, diarrhea and/or constipation, weight changes, sexual side effects including loss of libido, increased suicidal thoughts/behavi ors in children and young adults, and serotonin syndrome. Second generation antipsychotics (SGAs) have metabolic syndrome issues with weight gain, increase in prolactin, increased waist circumference, increased lipids, and increased glucose. Thus routine monitoring of weight, metabolic labs, etc. is indicated. A general rank ordering of antipsychotics that have the greatest to the least risk of metabolic effects is olanzapine, quetiapine, risperidone, ziprasidone, and aripiprazole. However, weight gain can occur with all of these drugs and considerable variability exists among patients receiving the same drug regarding the risk of metabolic effects. Anti-psychotic agents not only increase the risk of metabolic disorder, they also increase the risk of CVA, akathisia, and movement disorders including EPS or tardive dyskinesia (more common with first generation antipsychotics) and more. [facility] 2. Generalized anxiety disorder - Buspar 10 mg three times a day- therapy hx [facility] [place] 3. Primary insomnia -sleep disturbance sleep study [facility] 4. Irritability and anger -Depakote DR 500 mg three times a day stable 5. elevted blood pressure reading educated on healthy b/p 120/80 monitor b/p at home refer to PCP, Urgent care/ER heart healthy diet and excise limit salt intake limit soda intake and caffiene increase water 6.tobacco use and vaping Do not smoke. Nicotine and other chemicals in cigarettes and cigars can cause lung damage. Ask your healthcare provider for information if you currently smoke and need help to quit. E-cigarettes or smokeless tobacco still contain nicotine. Talk to your healthcare provider before you use these products. education on decrease to stopping nicotine products and stop smoking hotline given 7. Alcohol use- stable has decrease use educated on decrease to stop use ETOH and risk ETOH use on mental health, and medical refer to therapy refer to group 8. ADHD r/o schedule [facility] testing ADHD self reporting scale completed . Long-term drug therapy - Discussion Notescontinue therapy 12/27/2024 Irritability and anger (ICD-10 - R45.4) 1. Bipolar affective disorder, Depakote DR 500 mg three times a day for agitation monitor for jael and agitation Vraylar 3 mg daily - improved - educated on all rx- stablize mood, agitation, psychosis, paranoia, and jael,- on Vraylar obtain labs PCP patient reported RLS at twice a day dosing and improved when decreased to daily Risperdal hx paranoia/ psychosis Effexor ER 150 MG DAILY IN AM for depression and anxiety EDUCATED ON ALL MEDICATIONS, benefits, side effects,risk Monitor B/P educated on all medications, benefits, side effects and risk, and educated on depression, anxiety, and mood d/o and educated on compliance of medications, metabolic and movement d/o education appointment's, continue therapy discussion with patient about course of treatmentand patient instructions. education on serotonin syndrome SSRI side effects discussed including but not limited to, gastric upset, nausea, vomiting, diarrhea and/or constipation, weight changes, sexual side effects including loss of libido, increased suicidal thoughts/behavi ors in children and young adults, and serotonin syndrome. Second generation antipsychotics (SGAs) have metabolic syndrome issues with weight gain, increase in prolactin, increased waist circumference, increased lipids, and increased glucose. Thus routine monitoring of weight, metabolic labs, etc. is indicated. A general rank ordering of antipsychotics that have the greatest to the least risk of metabolic effects is olanzapine, quetiapine, risperidone, ziprasidone, and aripiprazole. However, weight gain can occur with all of these drugs and considerable variability exists among patients receiving the same drug regarding the risk of metabolic effects. Anti-psychotic agents not only increase the risk of metabolic disorder, they also increase the risk of CVA, akathisia, and movement disorders including EPS or tardive dyskinesia (more common with first generation antipsychotics) and more. [facility] [place] 2. Generalized anxiety disorder - Buspar 10 mg three times a day- therapy hx [facility] [place] 3. Primary insomnia -sleep disturbance sleep study [facility] in [facility] 4. Irritability and anger -Depakote DR 500 mg three times a day stable 5. elevted blood pressure reading educated on healthy b/p 120/80 monitor b/p at home refer to PCP, Urgent care/ER heart healthy diet and excise limit salt intake limit soda intake and caffiene increase water 6.tobacco use and vaping- repoted stopped vaping and aime stop smoking when complete 1/2 pack currently has 12/27/24 Do not smoke. Nicotine and other chemicals in cigarettes and cigars can cause lung damage. Ask your healthcare provider for information if you currently smoke and need help to quit. E-cigarettes or smokeless tobacco still contain nicotine. Talk to your healthcare provider before you use these products. education on decrease to stopping nicotine products and stop smoking hotline given 7. Alcohol use- stable has decrease use educated on decrease to stop use ETOH and risk ETOH use on mental health, and medical refer to therapy refer to group 8. ADHD r/o reviewed [place] testing- indicative ADHD Score 5 Part A 02/07 Part B 08/16 ADHD self reporting scale completed NO CONTROL SUBSTANCE PRESCRIBED BY ELENI- CANNABIS USE- patient reported may consider stopping cannabis use Discuss and educated on non stimulates - Straterra 25 mg daily in am for 1 week, then increase to Straterra 40 mg daily in am [place] discuss and educated on hx Wellbutrin (paranoia) ADHD stimulates education Discuss with patient risk of misuse, abuse, and addiction before prescribing stimulant medicines. 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 Educate patients and their families on these serious risks, proper storage of the medicine, and proper disposal of any unused medicine. Educated patient will monitor Throughout treatment, regularly assess and monitor them for signs and symptoms of nonmedical use, addiction, and potential diversion, which may be evidenced by more frequent renewal. requests than warranted by the prescribed dosage. Random UDS [place] prescription reviewed local pharmacy in [facility], no early refills on control substance educated on non-stimulate and stimulates 9. Cannabis use NO CONTROL SUBSTANCE PRESCRIBED BY ELENI - patient reported may consider stopping cannabis use discuss random UDS Cannabis Use Education NO CONTROL SUBSTANCE PRESCRIBED BY ELENI with cannabis use Recommend decrease/stop cannabis use as it can negatively impact mood, motivation, anxiety, sleep, focus/concentra tion/memory (vigilance, elasticity, processing and attention); can also contribute to development of psychosis. Recommend decrease/stop cannabis use as it may be negatively impacting mood, motivation, anxiety, sleep, focus; can also contribute to development of psychosis Cannabis/mariju yesica information: http_s://florentino.n [place].gov/publicat ions/drugfacts/ cannabis-mary lou yesica http_s://www.[employer]/c lxfxucn-vpd-bpl order-marijuana -adhd/ Discussion Notes continue therapy 03/29/2024 Irritability and anger (ICD-10 - R45.4) 1. Bipolar affective disorder, currently depressed, moderate - Depakote DR 500 mg three times a day for agitation monitor for jael and agitation Risperdal 2 mg a day for bipolar jael - educated on rx- improved with rx patient reported RLS at twice a day dosing and improved when decreased to daily Risperdal hx paranoia/ psychosis Effexor ER 150 MG DAILY IN AM for depression and anxiety EDUCATED ON ALL MEDICATIONS Monitor B/P educated on all medications, benefits, side effects and risk, and educated on depression, anxiety, and mood d/o and educated on compliance of medications, metabolic and movement d/o education appointment's, continue therapy discussion with patient about course of treatmentand patient instructions. education on serotonin syndrome LABS OBTAIN from PCP SSRI side effects discussed including but not limited to, gastric upset, nausea, vomiting, diarrhea and/or constipation, weight changes, sexual side effects including loss of libido, increased suicidal thoughts/behavi ors in children and young adults, and serotonin syndrome. Second generation antipsychotics (SGAs) have metabolic syndrome issues with weight gain, increase in prolactin, increased waist circumference, increased lipids, and increased glucose. Thus routine monitoring of weight, metabolic labs, etc. is indicated. A general rank ordering of antipsychotics that have the greatest to the least risk of metabolic effects is olanzapine, quetiapine, risperidone, ziprasidone, and aripiprazole. However, weight gain can occur with all of these drugs and considerable variability exists among patients receiving the same drug regarding the risk of metabolic effects. Anti-psychotic agents not only increase the risk of metabolic disorder, they also increase the risk of CVA, akathisia, and movement disorders including EPS or tardive dyskinesia (more common with first generation antipsychotics) and more. F31.32: Bipolar disorder, current episode depressed, moderate risperidone 2 mg tablet - Take 1 tablet(s) once a day by oral route as directed for 90 days, for Bipolar jael. Qty: (90) tablet Refills: 0 Pharmacy: [facility] venlafaxine ER 150 mg capsule,extende d release 24 hr - Take 1 capsule(s) every day by oral route in the morning for 90 days. Qty: (90) capsule Refills: 0 Pharmacy: [facility] 2. Generalized anxiety disorder - Buspar 10 mg three times a day- therapy presently in [facility] [place] F41.1: Generalized anxiety disorder 3. Primary insomnia -sleep disturbance schedule to sleep study [facility] in [place] F51.01: Primary insomnia 4. Irritability and anger -Depakote DR 500 mg three times a day R45.4: Irritability and anger 5. 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 Bipolar affective disorder, Depakote DR 500 mg three times a day for agitation monitor for jael and agitation labs ordered Vraylar 3 mg daily - improved - educated on all rx- stablize mood, agitation, psychosis, paranoia, and jael,- on Vraylar obtain labs PCP patient reported RLS at twice a day dosing and improved when decreased to daily Risperdal hx paranoia/ psychosis Effexor ER 150 MG DAILY IN AM for depression and anxiety EDUCATED ON ALL MEDICATIONS, benefits, side effects,risk Monitor B/P educated on all medications, benefits, side effects and risk, and educated on depression, anxiety, and mood d/o and educated on compliance of medications, metabolic and movement d/o education appointment's, continue therapy discussion with patient about course of treatmentand patient instructions. education on serotonin syndrome SSRI side effects discussed including but not limited to, gastric upset, nausea, vomiting, diarrhea and/or constipation, weight changes, sexual side effects including loss of libido, increased suicidal thoughts/behavi ors in children and young adults, and serotonin syndrome. Second generation antipsychotics (SGAs) have metabolic syndrome issues with weight gain, increase in prolactin, increased waist circumference, increased lipids, and increased glucose. Thus routine monitoring of weight, metabolic labs, etc. is indicated. A general rank ordering of antipsychotics that have the greatest to the least risk of metabolic effects is olanzapine, quetiapine, risperidone, ziprasidone, and aripiprazole. However, weight gain can occur with all of these drugs and considerable variability exists among patients receiving the same drug regarding the risk of metabolic effects. Anti-psychotic agents not only increase the risk of metabolic disorder, they also increase the risk of CVA, akathisia, and movement disorders including EPS or tardive dyskinesia (more common with first generation antipsychotics) and more. [facility] [place] 2. Generalized anxiety disorder - Buspar 10 mg three times a day- therapy hx [facility] [place] 3. Primary insomnia -sleep disturbance sleep study [facility] in [facility] 4. Irritability and anger -Depakote DR 500 mg three times a day stable 5. blood pressure reading educated on healthy b/p 120/80 monitor b/p at home refer to PCP, Urgent care/ER heart healthy diet and excise limit salt intake limit soda intake and caffiene increase water 6.tobacco use and vaping- repoted stopped vaping and aime stop smoking when complete 1/2 pack currently has 12/27/24 Do not smoke. Nicotine and other chemicals in cigarettes and cigars can cause lung damage. Ask your healthcare provider for information if you currently smoke and need help to quit. E-cigarettes or smokeless tobacco still contain nicotine. Talk to your healthcare provider before you use these products. education on decrease to stopping nicotine products and stop smoking hotline given 7. Alcohol use- stable has decrease use educated on decrease to stop use ETOH and risk ETOH use on mental health, and medical refer to therapy refer to group 8. ADHD r/o reviewed [facility] testing- indicative ADHD Score 5 Part A /6 Part B 08/16 ADHD self reporting scale completed NO CONTROL SUBSTANCE PRESCRIBED BY [facility]ENI- CANNABIS USE- patient reported may consider stopping cannabis use Discuss and educated on non stimulates - Increase Straterra 60 mg daily in am hx Wellbutrin (paranoia) ADHD stimulates education Discuss with patient risk of misuse, abuse, and addiction before prescribing stimulant medicines. 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 Educate patients and their families on these serious risks, proper storage of the medicine, and proper disposal of any unused medicine. Educated patient will monitor Throughout treatment, regularly assess and monitor them for signs and symptoms of nonmedical use, addiction, and potential diversion, which may be evidenced by more frequent renewal. requests than warranted by the prescribed dosage. Random UDS [place] prescription reviewed local pharmacy in [place], no early refills on control substance educated on non-stimulate and stimulates 9. Cannabis use NO CONTROL SUBSTANCE PRESCRIBED BY ELENI - patient reported may consider stopping cannabis use discuss random UDS Cannabis Use Education NO CONTROL SUBSTANCE PRESCRIBED BY ELENI with cannabis use Recommend decrease/stop cannabis use as it can negatively impact mood, motivation, anxiety, sleep, focus/concentra tion/memory (vigilance, elasticity, processing and attention); can also contribute to development of psychosis. Recommend decrease/stop cannabis use as it may be negatively impacting mood, motivation, anxiety, sleep, focus; can also contribute to development of psychosis Cannabis/mariju yesica information: http_s://florentino.n ih.gov/publicat ions/drugfacts/ cannabis-mariju yesica http_s://www.[employer]/c bchvpqx-pxl-unz order-marijuana -adhd/ Discussion Notes continue therapy 02/07/2025 Other fpc (current) drug therapy (ICD-10 - Z79.899) 1. Bipolar affective disorder, Depakote DR 500 mg three times a day for agitation monitor for jael and agitation labs ordered Vraylar 3 mg daily - improved - educated on all rx- stablize mood, agitation, psychosis, paranoia, and jael,- on Vraylar obtain labs PCP patient reported RLS at twice a day dosing and improved when decreased to daily Risperdal hx paranoia/ psychosis Effexor ER 150 MG DAILY IN AM for depression and anxiety EDUCATED ON ALL MEDICATIONS, benefits, side effects,risk Monitor B/P educated on all medications, benefits, side effects and risk, and educated on depression, anxiety, and mood d/o and educated on compliance of medications, metabolic and movement d/o education appointment's, continue therapy discussion with patient about course of treatmentand patient instructions. education on serotonin syndrome SSRI side effects discussed including but not limited to, gastric upset, nausea, vomiting, diarrhea and/or constipation, weight changes, sexual side effects including loss of libido, increased suicidal thoughts/behavi ors in children and young adults, and serotonin syndrome. Second generation antipsychotics (SGAs) have metabolic syndrome issues with weight gain, increase in prolactin, increased waist circumference, increased lipids, and increased glucose. Thus routine monitoring of weight, metabolic labs, etc. is indicated. A general rank ordering of antipsychotics that have the greatest to the least risk of metabolic effects is olanzapine, quetiapine, risperidone, ziprasidone, and aripiprazole. However, weight gain can occur with all of these drugs and considerable variability exists among patients receiving the same drug regarding the risk of metabolic effects. Anti-psychotic agents not only increase the risk of metabolic disorder, they also increase the risk of CVA, akathisia, and movement disorders including EPS or tardive dyskinesia (more common with first generation antipsychotics) and more. [facility] [place] 2. Generalized anxiety disorder - Buspar 10 mg three times a day- therapy hx [facility] [place] 3. Primary insomnia -sleep disturbance sleep study [facility] 4. Irritability and anger -Depakote DR 500 mg three times a day stable 5. blood pressure reading educated on healthy b/p 120/80 monitor b/p at home refer to PCP, Urgent care/ER heart healthy diet and excise limit salt intake limit soda intake and caffiene increase water 6.tobacco use and vaping- repoted stopped vaping and aime stop smoking when complete 1/2 pack currently has 12/27/24 Do not smoke. Nicotine and other chemicals in cigarettes and cigars can cause lung damage. Ask your healthcare provider for information if you currently smoke and need help to quit. E-cigarettes or smokeless tobacco still contain nicotine. Talk to your healthcare provider before you use these products. education on decrease to stopping nicotine products and stop smoking hotline given 7. Alcohol use- stable has decrease use educated on decrease to stop use ETOH and risk ETOH use on mental health, and medical refer to therapy refer to group 8. ADHD r/o reviewed [place] testing- indicative ADHD Score 5 Part A 5/6 Part B 08/16 ADHD self reporting scale completed NO CONTROL SUBSTANCE PRESCRIBED BY [facility]ENI- CANNABIS USE- patient reported may consider stopping cannabis use Discuss and educated on non stimulates - Increase Straterra 60 mg daily in am hx Wellbutrin (paranoia) ADHD stimulates education Discuss with patient risk of misuse, abuse, and addiction before prescribing stimulant medicines. 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 Educate patients and their families on these serious risks, proper storage of the medicine, and proper disposal of any unused medicine. Educated patient will monitor Throughout treatment, regularly assess and monitor them for signs and symptoms of nonmedical use, addiction, and potential diversion, which may be evidenced by more frequent renewal. requests than warranted by the prescribed dosage. Random [facility] prescription reviewed local pharmacy in [place], no early refills on control substance educated on non-stimulate and stimulates 9. Cannabis use NO CONTROL SUBSTANCE PRESCRIBED BY ELENI - patient reported may consider stopping cannabis use discuss random UDS Cannabis Use Education NO CONTROL SUBSTANCE PRESCRIBED BY ELENI with cannabis use Recommend decrease/stop cannabis use as it can negatively impact mood, motivation, anxiety, sleep, focus/concentra tion/memory (vigilance, elasticity, processing and attention); can also contribute to development of psychosis. Recommend decrease/stop cannabis use as it may be negatively impacting mood, motivation, anxiety, sleep, focus; can also contribute to development of psychosis Cannabis/mariju yesica information: http_s://florentino.n ih.gov/publicat ions/drugfacts/ cannabis-mariju yesica http_s://[employer]/c vbhndqs-ydo-uoa order-marijuana -adhd/ Discussion Notes continue therapy 12/27/2024 Other fpc (current) drug therapy (ICD-10 - Z79.899) 1. Bipolar affective disorder, Depakote DR 500 mg three times a day for agitation monitor for jael and agitation Vraylar 3 mg daily - improved - educated on all rx- stablize mood, agitation, psychosis, paranoia, and jael,- on Vraylar obtain labs PCP patient reported RLS at twice a day dosing and improved when decreased to daily Risperdal hx paranoia/ psychosis Effexor ER 150 MG DAILY IN AM for depression and anxiety EDUCATED ON ALL MEDICATIONS, benefits, side effects,risk Monitor B/P educated on all medications, benefits, side effects and risk, and educated on depression, anxiety, and mood d/o and educated on compliance of medications, metabolic and movement d/o education appointment's, continue therapy discussion with patient about course of treatmentand patient instructions. education on serotonin syndrome SSRI side effects discussed including but not limited to, gastric upset, nausea, vomiting, diarrhea and/or constipation, weight changes, sexual side effects including loss of libido, increased suicidal thoughts/behavi ors in children and young adults, and serotonin syndrome. Second generation antipsychotics (SGAs) have metabolic syndrome issues with weight gain, increase in prolactin, increased waist circumference, increased lipids, and increased glucose. Thus routine monitoring of weight, metabolic labs, etc. is indicated. A general rank ordering of antipsychotics that have the greatest to the least risk of metabolic effects is olanzapine, quetiapine, risperidone, ziprasidone, and aripiprazole. However, weight gain can occur with all of these drugs and considerable variability exists among patients receiving the same drug regarding the risk of metabolic effects. Anti-psychotic agents not only increase the risk of metabolic disorder, they also increase the risk of CVA, akathisia, and movement disorders including EPS or tardive dyskinesia (more common with first generation antipsychotics) and more. [facility] [place] 2. Generalized anxiety disorder - Buspar 10 mg three times a day- therapy hx [facility] [place] 3. Primary insomnia -sleep disturbance sleep study [facility] 4. Irritability and anger -Depakote DR 500 mg three times a day stable 5. elevted blood pressure reading educated on healthy b/p 120/80 monitor b/p at home refer to PCP, Urgent care/ER heart healthy diet and excise limit salt intake limit soda intake and caffiene increase water 6.tobacco use and vaping- repoted stopped vaping and aime stop smoking when complete 1/2 pack currently has 12/27/24 Do not smoke. Nicotine and other chemicals in cigarettes and cigars can cause lung damage. Ask your healthcare provider for information if you currently smoke and need help to quit. E-cigarettes or smokeless tobacco still contain nicotine. Talk to your healthcare provider before you use these products. education on decrease to stopping nicotine products and stop smoking hotline given 7. Alcohol use- stable has decrease use educated on decrease to stop use ETOH and risk ETOH use on mental health, and medical refer to therapy refer to group 8. ADHD r/o reviewed [place] testing- indicative ADHD Score 5 Part A 5/6 Part B 08/16 ADHD self reporting scale completed NO CONTROL SUBSTANCE PRESCRIBED BY ELENI- CANNABIS USE- patient reported may consider stopping cannabis use Discuss and educated on non stimulates - Straterra 25 mg daily in am for 1 week, then increase to Straterra 40 mg daily in am [place] discuss and educated on hx Wellbutrin (paranoia) ADHD stimulates education Discuss with patient risk of misuse, abuse, and addiction before prescribing stimulant medicines. 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 Educate patients and their families on these serious risks, proper storage of the medicine, and proper disposal of any unused medicine. Educated patient will monitor Throughout treatment, regularly assess and monitor them for signs and symptoms of nonmedical use, addiction, and potential diversion, which may be evidenced by more frequent renewal. requests than warranted by the prescribed dosage. Random UDS [place] prescription reviewed local pharmacy in [place], no early refills on control substance educated on non-stimulate and stimulates 9. Cannabis use NO CONTROL SUBSTANCE PRESCRIBED BY ELENI - patient reported may consider stopping cannabis use discuss random UDS Cannabis Use Education NO CONTROL SUBSTANCE PRESCRIBED BY ELENI with cannabis use Recommend decrease/stop cannabis use as it can negatively impact mood, motivation, anxiety, sleep, focus/concentra tion/memory (vigilance, elasticity, processing and attention); can also contribute to development of psychosis. 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 Bipolar affective disorder, currently depressed, moderate - Depakote DR 500 mg three times a day for agitation monitor for jael and agitation Risperdal 2 mg a day for bipolar jael - educated on rx- improved with rx patient reported RLS at twice a day dosing and improved when decreased to daily Risperdal hx paranoia/ psychosis Effexor ER 150 MG DAILY IN AM for depression and anxiety EDUCATED ON ALL MEDICATIONS Monitor B/P educated on all medications, benefits, side effects and risk, and educated on depression, anxiety, and mood d/o and educated on compliance of medications, metabolic and movement d/o education appointment's, continue therapy discussion with patient about course of treatmentand patient instructions. education on serotonin syndrome LABS OBTAIN from PCP SSRI side effects discussed including but not limited to, gastric upset, nausea, vomiting, diarrhea and/or constipation, weight changes, sexual side effects including loss of libido, increased suicidal thoughts/behavi ors in children and young adults, and serotonin syndrome. Second generation antipsychotics (SGAs) have metabolic syndrome issues with weight gain, increase in prolactin, increased waist circumference, increased lipids, and increased glucose. Thus routine monitoring of weight, metabolic labs, etc. is indicated. A general rank ordering of antipsychotics that have the greatest to the least risk of metabolic effects is olanzapine, quetiapine, risperidone, ziprasidone, and aripiprazole. However, weight gain can occur with all of these drugs and considerable variability exists among patients receiving the same drug regarding the risk of metabolic effects. Anti-psychotic agents not only increase the risk of metabolic disorder, they also increase the risk of CVA, akathisia, and movement disorders including EPS or tardive dyskinesia (more common with first generation antipsychotics) and more. F31.32: Bipolar disorder, current episode depressed, moderate risperidone 2 mg tablet - Take 1 tablet(s) once a day by oral route as directed for 90 days, for Bipolar jael. Qty: (90) tablet Refills: 0 Pharmacy: [facility] venlafaxine ER 150 mg capsule,extende d release 24 hr - Take 1 capsule(s) every day by oral route in the morning for 90 days. Qty: (90) capsule Refills: 0 Pharmacy: [facility] 2. Generalized anxiety disorder - Buspar 10 mg three times a day- therapy presently in [facility] [place] F41.1: Generalized anxiety disorder 3. Primary insomnia -sleep disturbance schedule to sleep study [facility] in [place] F51.01: Primary insomnia 4. Irritability and anger -Depakote DR 500 mg three times a day R45.4: Irritability and anger 5. Long-term drug therapy -Z79.899: Other fpc (current) drug therapy Discussion Notescontinue therapy 12/13/2024 Other fpc (current) drug therapy (ICD-10 - Z79.899) 1. Bipolar affective disorder, Depakote DR 500 mg three times a day for agitation monitor for jael and agitation Vraylar 3 mg daily - improved - educated on all rx- stablize mood, agitation, psychosis, paranoia, and jael,- on Vraylar obtain labs PCP patient reported RLS at twice a day dosing and improved when decreased to daily Risperdal hx paranoia/ psychosis Effexor ER 150 MG DAILY IN AM for depression and anxiety EDUCATED ON ALL MEDICATIONS, benefits, side effects,risk Monitor B/P educated on all medications, benefits, side effects and risk, and educated on depression, anxiety, and mood d/o and educated on compliance of medications, metabolic and movement d/o education appointment's, continue therapy discussion with patient about course of treatmentand patient instructions. education on serotonin syndrome SSRI side effects discussed including but not limited to, gastric upset, nausea, vomiting, diarrhea and/or constipation, weight changes, sexual side effects including loss of libido, increased suicidal thoughts/behavi ors in children and young adults, and serotonin syndrome. Second generation antipsychotics (SGAs) have metabolic syndrome issues with weight gain, increase in prolactin, increased waist circumference, increased lipids, and increased glucose. Thus routine monitoring of weight, metabolic labs, etc. is indicated. A general rank ordering of antipsychotics that have the greatest to the least risk of metabolic effects is olanzapine, quetiapine, risperidone, ziprasidone, and aripiprazole. However, weight gain can occur with all of these drugs and considerable variability exists among patients receiving the same drug regarding the risk of metabolic effects. Anti-psychotic agents not only increase the risk of metabolic disorder, they also increase the risk of CVA, akathisia, and movement disorders including EPS or tardive dyskinesia (more common with first generation antipsychotics) and more. [facility] 2. Generalized anxiety disorder - Buspar 10 mg three times a day- therapy hx [facility] [place] 3. Primary insomnia -sleep disturbance sleep study [facility] in [facility] 4. Irritability and anger -Depakote DR 500 mg three times a day stable 5. elevted blood pressure reading educated on healthy b/p 120/80 monitor b/p at home refer to PCP, Urgent care/ER heart healthy diet and excise limit salt intake limit soda intake and caffiene increase water 6.tobacco use and vaping Do not smoke. Nicotine and other chemicals in cigarettes and cigars can cause lung damage. Ask your healthcare provider for information if you currently smoke and need help to quit. E-cigarettes or smokeless tobacco still contain nicotine. Talk to your healthcare provider before you use these products. education on decrease to stopping nicotine products and stop smoking hotline given 7. Alcohol use- stable has decrease use educated on decrease to stop use ETOH and risk ETOH use on mental health, and medical refer to therapy refer to group 8. ADHD r/o schedule [facility] testing ADHD self reporting scale completed . Long-term drug therapy - Discussion Notescontinue therapy 06/21/2024 Irritability and anger (ICD-10 - R45.4) 1. Bipolar affective disorder, currently depressed, moderate - Depakote DR 500 mg three times a day for agitation monitor for jael and agitation Risperdal 2 mg a day for bipolar jael - educated on rx- improved with rx patient reported RLS at twice a day dosing and improved when decreased to daily Risperdal hx paranoia/ psychosis Effexor ER 150 MG DAILY IN AM for depression and anxiety EDUCATED ON ALL MEDICATIONS, benefits, side effects,risk Monitor B/P educated on all medications, benefits, side effects and risk, and educated on depression, anxiety, and mood d/o and educated on compliance of medications, metabolic and movement d/o education appointment's, continue therapy discussion with patient about course of treatmentand patient instructions. education on serotonin syndrome LABS ordered SSRI side effects discussed including but not limited to, gastric upset, nausea, vomiting, diarrhea and/or constipation, weight changes, sexual side effects including loss of libido, increased suicidal thoughts/behavi ors in children and young adults, and serotonin syndrome. Second generation antipsychotics (SGAs) have metabolic syndrome issues with weight gain, increase in prolactin, increased waist circumference, increased lipids, and increased glucose. Thus routine monitoring of weight, metabolic labs, etc. is indicated. A general rank ordering of antipsychotics that have the greatest to the least risk of metabolic effects is olanzapine, quetiapine, risperidone, ziprasidone, and aripiprazole. However, weight gain can occur with all of these drugs and considerable variability exists among patients receiving the same drug regarding the risk of metabolic effects. Anti-psychotic agents not only increase the risk of metabolic disorder, they also increase the risk of CVA, akathisia, and movement disorders including EPS or tardive dyskinesia (more common with first generation antipsychotics) and more. [facility] 2. Generalized anxiety disorder - Buspar 10 mg three times a day- therapy hx [facility] [place] 3. Primary insomnia -sleep disturbance schedule to sleep study [facility] in [place] 4. Irritability and anger -Depakote DR 500 mg three times a day 5. 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 Bipolar affective disorder, currently depressed, Depakote DR 500 mg three times a day for agitation monitor for jael and agitation Discuss and educated on Vraylar and Caplyta for Bipolar Will add Vraylar 1.5 mg daily for 1 week then increase to 3 mg daily samples and co-pay card given Risperdal 2 mg a day for bipolar - plan to [facility] and stop rx next visit - educated on all rx- pateint will be on 2 antipsychotic presently to stablize mood, agitation, psychosis, paranoia, and jael, obtain labs PCP patient reported RLS at twice a day dosing and improved when decreased to daily Risperdal hx paranoia/ psychosis Effexor ER 150 MG DAILY IN AM for depression and anxiety EDUCATED ON ALL MEDICATIONS, benefits, side effects,risk Monitor B/P educated on all medications, benefits, side effects and risk, and educated on depression, anxiety, and mood d/o and educated on compliance of medications, metabolic and movement d/o education appointment's, continue therapy discussion with patient about course of treatmentand patient instructions. education on serotonin syndrome SSRI side effects discussed including but not limited to, gastric upset, nausea, vomiting, diarrhea and/or constipation, weight changes, sexual side effects including loss of libido, increased suicidal thoughts/behavi ors in children and young adults, and serotonin syndrome. Second generation antipsychotics (SGAs) have metabolic syndrome issues with weight gain, increase in prolactin, increased waist circumference, increased lipids, and increased glucose. Thus routine monitoring of weight, metabolic labs, etc. is indicated. A general rank ordering of antipsychotics that have the greatest to the least risk of metabolic effects is olanzapine, quetiapine, risperidone, ziprasidone, and aripiprazole. However, weight gain can occur with all of these drugs and considerable variability exists among patients receiving the same drug regarding the risk of metabolic effects. Anti-psychotic agents not only increase the risk of metabolic disorder, they also increase the risk of CVA, akathisia, and movement disorders including EPS or tardive dyskinesia (more common with first generation antipsychotics) and more. [facility] 2. Generalized anxiety disorder - Buspar 10 mg three times a day- therapy hx [facility] [place] 3. Primary insomnia -sleep disturbance sleep study [facility] in [facility] 4. Irritability and anger -Depakote DR 500 mg three times a day 5. elevted blood pressure reading educated on healthy b/p 120/80 monitor b/p at home refer to PCP, Urgent care/ER heart healthy diet and excise limit salt intake limit soda intake and caffiene increase water 6.tobacco use and vaping Do not smoke. Nicotine and other chemicals in cigarettes and cigars can cause lung damage. Ask your healthcare provider for information if you currently smoke and need help to quit. E-cigarettes or smokeless tobacco still contain nicotine. Talk to your healthcare provider before you use these products. education on decrease to stopping nicotine products and stop smoking hotline given 7. Alcohol use educated on decrease to stop use ETOH and risk ETOH use on mental health, and medical refer to therapy refer to group . Long-term drug therapy - Discussion Notescontinue therapy 09/20/2024 Elevated blood pressure reading (ICD-10 - R03.0) 1. Bipolar affective disorder, currently depressed, Depakote DR 500 mg three times a day for agitation monitor for jael and agitation Discuss and educated on Vraylar and Caplyta for Bipolar Will add Vraylar 1.5 mg daily for 1 week then increase to 3 mg daily samples and co-pay card given Risperdal 2 mg a day for bipolar - plan to [facility] and stop rx next visit - educated on all rx- pateint will be on 2 antipsychotic presently to stablize mood, agitation, psychosis, paranoia, and jael, obtain labs PCP patient reported RLS at twice a day dosing and improved when decreased to daily Risperdal hx paranoia/ psychosis Effexor ER 150 MG DAILY IN AM for depression and anxiety EDUCATED ON ALL MEDICATIONS, benefits, side effects,risk Monitor B/P educated on all medications, benefits, side effects and risk, and educated on depression, anxiety, and mood d/o and educated on compliance of medications, metabolic and movement d/o education appointment's, continue therapy discussion with patient about course of treatmentand patient instructions. education on serotonin syndrome SSRI side effects discussed including but not limited to, gastric upset, nausea, vomiting, diarrhea and/or constipation, weight changes, sexual side effects including loss of libido, increased suicidal thoughts/behavi ors in children and young adults, and serotonin syndrome. Second generation antipsychotics (SGAs) have metabolic syndrome issues with weight gain, increase in prolactin, increased waist circumference, increased lipids, and increased glucose. Thus routine monitoring of weight, metabolic labs, etc. is indicated. A general rank ordering of antipsychotics that have the greatest to the least risk of metabolic effects is olanzapine, quetiapine, risperidone, ziprasidone, and aripiprazole. However, weight gain can occur with all of these drugs and considerable variability exists among patients receiving the same drug regarding the risk of metabolic effects. Anti-psychotic agents not only increase the risk of metabolic disorder, they also increase the risk of CVA, akathisia, and movement disorders including EPS or tardive dyskinesia (more common with first generation antipsychotics) and more. [facility] 2. Generalized anxiety disorder - Buspar 10 mg three times a day- therapy hx [facility] [place] 3. Primary insomnia -sleep disturbance sleep study [facility] in [facility] 4. Irritability and anger -Depakote DR 500 mg three times a day 5. elevted blood pressure reading educated on healthy b/p 120/80 monitor b/p at home refer to PCP, Urgent care/ER heart healthy diet and excise limit salt intake limit soda intake and caffiene increase water 6.tobacco use and vaping Do not smoke. Nicotine and other chemicals in cigarettes and cigars can cause lung damage. Ask your healthcare provider for information if you currently smoke and need help to quit. E-cigarettes or smokeless tobacco still contain nicotine. Talk to your healthcare provider before you use these products. education on decrease to stopping nicotine products and stop smoking hotline given 7. Alcohol use educated on decrease to stop use ETOH and risk ETOH use on mental health, and medical refer to therapy refer to group . 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 Bipolar affective disorder, currently depressed, moderate - Depakote DR 500 mg three times a day for agitation monitor for jael and agitation Risperdal 2 mg a day for bipolar jael - educated on rx- improved with rx patient reported RLS at twice a day dosing and improved when decreased to daily Risperdal hx paranoia/ psychosis Effexor ER 150 MG DAILY IN AM for depression and anxiety EDUCATED ON ALL MEDICATIONS, benefits, side effects,risk Monitor B/P educated on all medications, benefits, side effects and risk, and educated on depression, anxiety, and mood d/o and educated on compliance of medications, metabolic and movement d/o education appointment's, continue therapy discussion with patient about course of treatmentand patient instructions. education on serotonin syndrome LABS ordered SSRI side effects discussed including but not limited to, gastric upset, nausea, vomiting, diarrhea and/or constipation, weight changes, sexual side effects including loss of libido, increased suicidal thoughts/behavi ors in children and young adults, and serotonin syndrome. Second generation antipsychotics (SGAs) have metabolic syndrome issues with weight gain, increase in prolactin, increased waist circumference, increased lipids, and increased glucose. Thus routine monitoring of weight, metabolic labs, etc. is indicated. A general rank ordering of antipsychotics that have the greatest to the least risk of metabolic effects is olanzapine, quetiapine, risperidone, ziprasidone, and aripiprazole. However, weight gain can occur with all of these drugs and considerable variability exists among patients receiving the same drug regarding the risk of metabolic effects. Anti-psychotic agents not only increase the risk of metabolic disorder, they also increase the risk of CVA, akathisia, and movement disorders including EPS or tardive dyskinesia (more common with first generation antipsychotics) and more. [facility] 2. Generalized anxiety disorder - Buspar 10 mg three times a day- therapy hx [facility] [place] 3. Primary insomnia -sleep disturbance schedule to sleep study [facility] in [place] 4. Irritability and anger -Depakote DR 500 mg three times a day 5. Long-term drug therapy - Discussion Notescontinue therapy 12/13/2024 Elevated blood pressure reading (ICD-10 - R03.0) 1. Bipolar affective disorder, Depakote DR 500 mg three times a day for agitation monitor for jael and agitation Vraylar 3 mg daily - improved - educated on all rx- stablize mood, agitation, psychosis, paranoia, and jael,- on Vraylar obtain labs PCP patient reported RLS at twice a day dosing and improved when decreased to daily Risperdal hx paranoia/ psychosis Effexor ER 150 MG DAILY IN AM for depression and anxiety EDUCATED ON ALL MEDICATIONS, benefits, side effects,risk Monitor B/P educated on all medications, benefits, side effects and risk, and educated on depression, anxiety, and mood d/o and educated on compliance of medications, metabolic and movement d/o education appointment's, continue therapy discussion with patient about course of treatmentand patient instructions. education on serotonin syndrome SSRI side effects discussed including but not limited to, gastric upset, nausea, vomiting, diarrhea and/or constipation, weight changes, sexual side effects including loss of libido, increased suicidal thoughts/behavi ors in children and young adults, and serotonin syndrome. Second generation antipsychotics (SGAs) have metabolic syndrome issues with weight gain, increase in prolactin, increased waist circumference, increased lipids, and increased glucose. Thus routine monitoring of weight, metabolic labs, etc. is indicated. A general rank ordering of antipsychotics that have the greatest to the least risk of metabolic effects is olanzapine, quetiapine, risperidone, ziprasidone, and aripiprazole. However, weight gain can occur with all of these drugs and considerable variability exists among patients receiving the same drug regarding the risk of metabolic effects. Anti-psychotic agents not only increase the risk of metabolic disorder, they also increase the risk of CVA, akathisia, and movement disorders including EPS or tardive dyskinesia (more common with first generation antipsychotics) and more. [facility] 2. Generalized anxiety disorder - Buspar 10 mg three times a day- therapy hx [facility] [place] 3. Primary insomnia -sleep disturbance sleep study [facility] 4. Irritability and anger -Depakote DR 500 mg three times a day stable 5. elevted blood pressure reading educated on healthy b/p 120/80 monitor b/p at home refer to PCP, Urgent care/ER heart healthy diet and excise limit salt intake limit soda intake and caffiene increase water 6.tobacco use and vaping Do not smoke. Nicotine and other chemicals in cigarettes and cigars can cause lung damage. Ask your healthcare provider for information if you currently smoke and need help to quit. E-cigarettes or smokeless tobacco still contain nicotine. Talk to your healthcare provider before you use these products. education on decrease to stopping nicotine products and stop smoking hotline given 7. Alcohol use- stable has decrease use educated on decrease to stop use ETOH and risk ETOH use on mental health, and medical refer to therapy refer to group 8. ADHD r/o schedule [facility] testing ADHD self reporting scale completed . Long-term drug therapy - Discussion Notescontinue therapy 02/07/2025 Encounter for screening for depression (ICD-10 - Z13.31) 1. Bipolar affective disorder, Depakote DR 500 mg three times a day for agitation monitor for jael and agitation labs ordered Vraylar 3 mg daily - improved - educated on all rx- stablize mood, agitation, psychosis, paranoia, and jael,- on Vraylar obtain labs PCP patient reported RLS at twice a day dosing and improved when decreased to daily Risperdal hx paranoia/ psychosis Effexor ER 150 MG DAILY IN AM for depression and anxiety EDUCATED ON ALL MEDICATIONS, benefits, side effects,risk Monitor B/P educated on all medications, benefits, side effects and risk, and educated on depression, anxiety, and mood d/o and educated on compliance of medications, metabolic and movement d/o education appointment's, continue therapy discussion with patient about course of treatmentand patient instructions. education on serotonin syndrome SSRI side effects discussed including but not limited to, gastric upset, nausea, vomiting, diarrhea and/or constipation, weight changes, sexual side effects including loss of libido, increased suicidal thoughts/behavi ors in children and young adults, and serotonin syndrome. Second generation antipsychotics (SGAs) have metabolic syndrome issues with weight gain, increase in prolactin, increased waist circumference, increased lipids, and increased glucose. Thus routine monitoring of weight, metabolic labs, etc. is indicated. A general rank ordering of antipsychotics that have the greatest to the least risk of metabolic effects is olanzapine, quetiapine, risperidone, ziprasidone, and aripiprazole. However, weight gain can occur with all of these drugs and considerable variability exists among patients receiving the same drug regarding the risk of metabolic effects. Anti-psychotic agents not only increase the risk of metabolic disorder, they also increase the risk of CVA, akathisia, and movement disorders including EPS or tardive dyskinesia (more common with first generation antipsychotics) and more. [facility] 2. Generalized anxiety disorder - Buspar 10 mg three times a day- therapy hx [facility] [place] 3. Primary insomnia -sleep disturbance sleep study [facility] 4. Irritability and anger -Depakote DR 500 mg three times a day stable 5. blood pressure reading educated on healthy b/p 120/80 monitor b/p at home refer to PCP, Urgent care/ER heart healthy diet and excise limit salt intake limit soda intake and caffiene increase water 6.tobacco use and vaping- repoted stopped vaping and aime stop smoking when complete 1/2 pack currently has 12/27/24 Do not smoke. Nicotine and other chemicals in cigarettes and cigars can cause lung damage. Ask your healthcare provider for information if you currently smoke and need help to quit. E-cigarettes or smokeless tobacco still contain nicotine. Talk to your healthcare provider before you use these products. education on decrease to stopping nicotine products and stop smoking hotline given 7. Alcohol use- stable has decrease use educated on decrease to stop use ETOH and risk ETOH use on mental health, and medical refer to therapy refer to group 8. ADHD r/o reviewed [facility] testing- indicative ADHD Score 5 Part A 02/07 Part B 08/16 ADHD self reporting scale completed NO CONTROL SUBSTANCE PRESCRIBED BY [facility]- CANNABIS USE- patient reported may consider stopping cannabis use Discuss and educated on non stimulates - Increase Straterra 60 mg daily in am hx Wellbutrin (paranoia) ADHD stimulates education Discuss with patient risk of misuse, abuse, and addiction before prescribing stimulant medicines. 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 Educate patients and their families on these serious risks, proper storage of the medicine, and proper disposal of any unused medicine. Educated patient will monitor Throughout treatment, regularly assess and monitor them for signs and symptoms of nonmedical use, addiction, and potential diversion, which may be evidenced by more frequent renewal. requests than warranted by the prescribed dosage. Random UDS [place] prescription reviewed local pharmacy in [facility], no early refills on control substance educated on non-stimulate and stimulates 9. Cannabis use NO CONTROL SUBSTANCE PRESCRIBED BY ELENI - patient reported may consider stopping cannabis use discuss random UDS Cannabis Use Education NO CONTROL SUBSTANCE PRESCRIBED BY ELENI with cannabis use Recommend decrease/stop cannabis use as it can negatively impact mood, motivation, anxiety, sleep, focus/concentra tion/memory (vigilance, elasticity, processing and attention); can also contribute to development of psychosis. Recommend decrease/stop cannabis use as it may be negatively impacting mood, motivation, anxiety, sleep, focus; can also contribute to development of psychosis Cannabis/mariju yesica information: http_s://florentino.n [place].gov/publicat ions/drugfacts/ cannabis-mariju yesica http_s://www.[employer].com/c pqfcypl-ebp-cit order-marijuana -adhd/ Discussion Notes continue therapy 12/27/2024 Elevated blood pressure reading (ICD-10 - R03.0) 1. Bipolar affective disorder, Depakote DR 500 mg three times a day for agitation monitor for jael and agitation Vraylar 3 mg daily - improved - educated on all rx- stablize mood, agitation, psychosis, paranoia, and jael,- on Vraylar obtain labs PCP patient reported RLS at twice a day dosing and improved when decreased to daily Risperdal hx paranoia/ psychosis Effexor ER 150 MG DAILY IN AM for depression and anxiety EDUCATED ON ALL MEDICATIONS, benefits, side effects,risk Monitor B/P educated on all medications, benefits, side effects and risk, and educated on depression, anxiety, and mood d/o and educated on compliance of medications, metabolic and movement d/o education appointment's, continue therapy discussion with patient about course of treatmentand patient instructions. education on serotonin syndrome SSRI side effects discussed including but not limited to, gastric upset, nausea, vomiting, diarrhea and/or constipation, weight changes, sexual side effects including loss of libido, increased suicidal thoughts/behavi ors in children and young adults, and serotonin syndrome. Second generation antipsychotics (SGAs) have metabolic syndrome issues with weight gain, increase in prolactin, increased waist circumference, increased lipids, and increased glucose. Thus routine monitoring of weight, metabolic labs, etc. is indicated. A general rank ordering of antipsychotics that have the greatest to the least risk of metabolic effects is olanzapine, quetiapine, risperidone, ziprasidone, and aripiprazole. However, weight gain can occur with all of these drugs and considerable variability exists among patients receiving the same drug regarding the risk of metabolic effects. Anti-psychotic agents not only increase the risk of metabolic disorder, they also increase the risk of CVA, akathisia, and movement disorders including EPS or tardive dyskinesia (more common with first generation antipsychotics) and more. [facility] 2. Generalized anxiety disorder - Buspar 10 mg three times a day- therapy hx [facility] [place] 3. Primary insomnia -sleep disturbance sleep study [facility] in [facility] 4. Irritability and anger -Depakote DR 500 mg three times a day stable 5. elevted blood pressure reading educated on healthy b/p 120/80 monitor b/p at home refer to PCP, Urgent care/ER heart healthy diet and excise limit salt intake limit soda intake and caffiene increase water 6.tobacco use and vaping- repoted stopped vaping and aime stop smoking when complete 1/2 pack currently has 12/27/24 Do not smoke. Nicotine and other chemicals in cigarettes and cigars can cause lung damage. Ask your healthcare provider for information if you currently smoke and need help to quit. E-cigarettes or smokeless tobacco still contain nicotine. Talk to your healthcare provider before you use these products. education on decrease to stopping nicotine products and stop smoking hotline given 7. Alcohol use- stable has decrease use educated on decrease to stop use ETOH and risk ETOH use on mental health, and medical refer to therapy refer to group 8. ADHD r/o reviewed [facility] testing- indicative ADHD Score 5 Part A 02/07 Part B 08/16 ADHD self reporting scale completed NO CONTROL SUBSTANCE PRESCRIBED BY ELENI- CANNABIS USE- patient reported may consider stopping cannabis use Discuss and educated on non stimulates - Straterra 25 mg daily in am for 1 week, then increase to Straterra 40 mg daily in am Qel[place]ree discuss and educated on hx Wellbutrin (paranoia) ADHD stimulates education Discuss with patient risk of misuse, abuse, and addiction before prescribing stimulant medicines. 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 Educate patients and their families on these serious risks, proper storage of the medicine, and proper disposal of any unused medicine. Educated patient will monitor Throughout treatment, regularly assess and monitor them for signs and symptoms of nonmedical use, addiction, and potential diversion, which may be evidenced by more frequent renewal. requests than warranted by the prescribed dosage. Random UDS [place] prescription reviewed local pharmacy in [facility], no early refills on control substance educated on non-stimulate and stimulates 9. Cannabis use NO CONTROL SUBSTANCE PRESCRIBED BY ELENI - patient reported may consider stopping cannabis use discuss random UDS Cannabis Use Education NO CONTROL SUBSTANCE PRESCRIBED BY ELENI with cannabis use Recommend decrease/stop cannabis use as it can negatively impact mood, motivation, anxiety, sleep, focus/concentra tion/memory (vigilance, elasticity, processing and attention); can also contribute to development of psychosis. Recommend decrease/stop cannabis use as it may be negatively impacting mood, motivation, anxiety, sleep, focus; can also contribute to development of psychosis Cannabis/mariju yesica information: http_s://florentino.n ih.gov/publicat ions/drugfacts/ cannabis-mariju yesica http_s://www.[employer]/c rxciixq-fxf-nbr order-marijuana -adhd/ Discussion Notes continue therapy 02/07/2025 Encounter for screening for cardiovascular disorders (ICD-10 - Z13.6) 1. Bipolar affective disorder, Depakote DR 500 mg three times a day for agitation monitor for jael and agitation labs ordered Vraylar 3 mg daily - improved - educated on all rx- stablize mood, agitation, psychosis, paranoia, and jael,- on Vraylar obtain labs PCP patient reported RLS at twice a day dosing and improved when decreased to daily Risperdal hx paranoia/ psychosis Effexor ER 150 MG DAILY IN AM for depression and anxiety EDUCATED ON ALL MEDICATIONS, benefits, side effects,risk Monitor B/P educated on all medications, benefits, side effects and risk, and educated on depression, anxiety, and mood d/o and educated on compliance of medications, metabolic and movement d/o education appointment's, continue therapy discussion with patient about course of treatmentand patient instructions. education on serotonin syndrome SSRI side effects discussed including but not limited to, gastric upset, nausea, vomiting, diarrhea and/or constipation, weight changes, sexual side effects including loss of libido, increased suicidal thoughts/behavi ors in children and young adults, and serotonin syndrome. Second generation antipsychotics (SGAs) have metabolic syndrome issues with weight gain, increase in prolactin, increased waist circumference, increased lipids, and increased glucose. Thus routine monitoring of weight, metabolic labs, etc. is indicated. A general rank ordering of antipsychotics that have the greatest to the least risk of metabolic effects is olanzapine, quetiapine, risperidone, ziprasidone, and aripiprazole. However, weight gain can occur with all of these drugs and considerable variability exists among patients receiving the same drug regarding the risk of metabolic effects. Anti-psychotic agents not only increase the risk of metabolic disorder, they also increase the risk of CVA, akathisia, and movement disorders including EPS or tardive dyskinesia (more common with first generation antipsychotics) and more. [facility] 2. Generalized anxiety disorder - Buspar 10 mg three times a day- therapy hx [facility] [place] 3. Primary insomnia -sleep disturbance sleep study [facility] in [facility] 4. Irritability and anger -Depakote DR 500 mg three times a day stable 5. blood pressure reading educated on healthy b/p 120/80 monitor b/p at home refer to PCP, Urgent care/ER heart healthy diet and excise limit salt intake limit soda intake and caffiene increase water 6.tobacco use and vaping- repoted stopped vaping and aime stop smoking when complete 1/2 pack currently has 12/27/24 Do not smoke. Nicotine and other chemicals in cigarettes and cigars can cause lung damage. Ask your healthcare provider for information if you currently smoke and need help to quit. E-cigarettes or smokeless tobacco still contain nicotine. Talk to your healthcare provider before you use these products. education on decrease to stopping nicotine products and stop smoking hotline given 7. Alcohol use- stable has decrease use educated on decrease to stop use ETOH and risk ETOH use on mental health, and medical refer to therapy refer to group 8. ADHD r/o reviewed [facility] testing- indicative ADHD Score 5 Part A /6 Part B 08/16 ADHD self reporting scale completed NO CONTROL SUBSTANCE PRESCRIBED BY ELENI- CANNABIS USE- patient reported may consider stopping cannabis use Discuss and educated on non stimulates - Increase Straterra 60 mg daily in am hx Wellbutrin (paranoia) ADHD stimulates education Discuss with patient risk of misuse, abuse, and addiction before prescribing stimulant medicines. 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 Educate patients and their families on these serious risks, proper storage of the medicine, and proper disposal of any unused medicine. Educated patient will monitor Throughout treatment, regularly assess and monitor them for signs and symptoms of nonmedical use, addiction, and potential diversion, which may be evidenced by more frequent renewal. requests than warranted by the prescribed dosage. Random UDS [place] prescription reviewed local pharmacy in [facility], no early refills on control substance educated on non-stimulate and stimulates 9. Cannabis use NO CONTROL SUBSTANCE PRESCRIBED BY ELENI - patient reported may consider stopping cannabis use discuss random UDS Cannabis Use Education NO CONTROL SUBSTANCE PRESCRIBED BY ELENI with cannabis use Recommend decrease/stop cannabis use as it can negatively impact mood, motivation, anxiety, sleep, focus/concentra tion/memory (vigilance, elasticity, processing and attention); can also contribute to development of psychosis. Recommend decrease/stop cannabis use as it may be negatively impacting mood, motivation, anxiety, sleep, focus; can also contribute to development of psychosis Cannabis/mariju yesica information: http_s://florentino.n ih.gov/publicat ions/drugfacts/ cannabis-mariju yesica http_s://www.[employer]/c akzbhnf-jlu-oye order-marijuana -adhd/ Discussion Notes continue therapy 12/27/2024 Tobacco use (ICD-10 - Z72.0) 1. Bipolar affective disorder, Depakote DR 500 mg three times a day for agitation monitor for jael and agitation Vraylar 3 mg daily - improved - educated on all rx- stablize mood, agitation, psychosis, paranoia, and jael,- on Vraylar obtain labs PCP patient reported RLS at twice a day dosing and improved when decreased to daily Risperdal hx paranoia/ psychosis Effexor ER 150 MG DAILY IN AM for depression and anxiety EDUCATED ON ALL MEDICATIONS, benefits, side effects,risk Monitor B/P educated on all medications, benefits, side effects and risk, and educated on depression, anxiety, and mood d/o and educated on compliance of medications, metabolic and movement d/o education appointment's, continue therapy discussion with patient about course of treatmentand patient instructions. education on serotonin syndrome SSRI side effects discussed including but not limited to, gastric upset, nausea, vomiting, diarrhea and/or constipation, weight changes, sexual side effects including loss of libido, increased suicidal thoughts/behavi ors in children and young adults, and serotonin syndrome. Second generation antipsychotics (SGAs) have metabolic syndrome issues with weight gain, increase in prolactin, increased waist circumference, increased lipids, and increased glucose. Thus routine monitoring of weight, metabolic labs, etc. is indicated. A general rank ordering of antipsychotics that have the greatest to the least risk of metabolic effects is olanzapine, quetiapine, risperidone, ziprasidone, and aripiprazole. However, weight gain can occur with all of these drugs and considerable variability exists among patients receiving the same drug regarding the risk of metabolic effects. Anti-psychotic agents not only increase the risk of metabolic disorder, they also increase the risk of CVA, akathisia, and movement disorders including EPS or tardive dyskinesia (more common with first generation antipsychotics) and more. [facility] 2. Generalized anxiety disorder - Buspar 10 mg three times a day- therapy hx [facility]I [facility] [place] 3. Primary insomnia -sleep disturbance sleep study [facility] in [place] [facility] 4. Irritability and anger -Depakote DR 500 mg three times a day stable 5. elevted blood pressure reading educated on healthy b/p 120/80 monitor b/p at home refer to PCP, Urgent care/ER heart healthy diet and excise limit salt intake limit soda intake and caffiene increase water 6.tobacco use and vaping- repoted stopped vaping and aime stop smoking when complete 1/2 pack currently has 12/27/24 Do not smoke. Nicotine and other chemicals in cigarettes and cigars can cause lung damage. Ask your healthcare provider for information if you currently smoke and need help to quit. E-cigarettes or smokeless tobacco still contain nicotine. Talk to your healthcare provider before you use these products. education on decrease to stopping nicotine products and stop smoking hotline given 7. Alcohol use- stable has decrease use educated on decrease to stop use ETOH and risk ETOH use on mental health, and medical refer to therapy refer to group 8. ADHD r/o reviewed [place] testing- indicative ADHD Score 5 Part A /6 Part B 08/16 ADHD self reporting scale completed NO CONTROL SUBSTANCE PRESCRIBED BY ELENI- CANNABIS USE- patient reported may consider stopping cannabis use Discuss and educated on non stimulates - Straterra 25 mg daily in am for 1 week, then increase to Straterra 40 mg daily in am [place] discuss and educated on hx Wellbutrin (paranoia) ADHD stimulates education Discuss with patient risk of misuse, abuse, and addiction before prescribing stimulant medicines. 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 Educate patients and their families on these serious risks, proper storage of the medicine, and proper disposal of any unused medicine. Educated patient will monitor Throughout treatment, regularly assess and monitor them for signs and symptoms of nonmedical use, addiction, and potential diversion, which may be evidenced by more frequent renewal. requests than warranted by the prescribed dosage. Random UDS [place] prescription reviewed local pharmacy in [facility], no early refills on control substance educated on non-stimulate and stimulates 9. Cannabis use NO CONTROL SUBSTANCE PRESCRIBED BY ELENI - patient reported may consider stopping cannabis use discuss random UDS Cannabis Use Education NO CONTROL SUBSTANCE PRESCRIBED BY ELENI with cannabis use Recommend decrease/stop cannabis use as it can negatively impact mood, motivation, anxiety, sleep, focus/concentra tion/memory (vigilance, elasticity, processing and attention); can also contribute to development of psychosis. Recommend decrease/stop cannabis use as it may be negatively impacting mood, motivation, anxiety, sleep, focus; can also contribute to development of psychosis Cannabis/costaju yesica information: http_s://lforentino.n ih.gov/publicat ions/drugfacts/ cannabis-mary lou yesica http_s://www.[employer]/c ilhoqin-rab-aui order-marijuana -adhd/ Discussion Notes continue therapy 09/20/2024 Tobacco use (ICD-10 - Z72.0) 1. Bipolar affective disorder, currently depressed, Depakote DR 500 mg three times a day for agitation monitor for jael and agitation Discuss and educated on Vraylar and Caplyta for Bipolar Will add Vraylar 1.5 mg daily for 1 week then increase to 3 mg daily samples and co-pay card given Risperdal 2 mg a day for bipolar - plan to [facility] and stop rx next visit - educated on all rx- pateint will be on 2 antipsychotic presently to stablize mood, agitation, psychosis, paranoia, and jael, obtain labs PCP patient reported RLS at twice a day dosing and improved when decreased to daily Risperdal hx paranoia/ psychosis Effexor ER 150 MG DAILY IN AM for depression and anxiety EDUCATED ON ALL MEDICATIONS, benefits, side effects,risk Monitor B/P educated on all medications, benefits, side effects and risk, and educated on depression, anxiety, and mood d/o and educated on compliance of medications, metabolic and movement d/o education appointment's, continue therapy discussion with patient about course of treatmentand patient instructions. education on serotonin syndrome SSRI side effects discussed including but not limited to, gastric upset, nausea, vomiting, diarrhea and/or constipation, weight changes, sexual side effects including loss of libido, increased suicidal thoughts/behavi ors in children and young adults, and serotonin syndrome. Second generation antipsychotics (SGAs) have metabolic syndrome issues with weight gain, increase in prolactin, increased waist circumference, increased lipids, and increased glucose. Thus routine monitoring of weight, metabolic labs, etc. is indicated. A general rank ordering of antipsychotics that have the greatest to the least risk of metabolic effects is olanzapine, quetiapine, risperidone, ziprasidone, and aripiprazole. However, weight gain can occur with all of these drugs and considerable variability exists among patients receiving the same drug regarding the risk of metabolic effects. Anti-psychotic agents not only increase the risk of metabolic disorder, they also increase the risk of CVA, akathisia, and movement disorders including EPS or tardive dyskinesia (more common with first generation antipsychotics) and more. [facility] 2. Generalized anxiety disorder - Buspar 10 mg three times a day- therapy hx [facility]I [facility] [place] 3. Primary insomnia -sleep disturbance sleep study [facility] 4. Irritability and anger -Depakote DR 500 mg three times a day 5. elevted blood pressure reading educated on healthy b/p 120/80 monitor b/p at home refer to PCP, Urgent care/ER heart healthy diet and excise limit salt intake limit soda intake and caffiene increase water 6.tobacco use and vaping Do not smoke. Nicotine and other chemicals in cigarettes and cigars can cause lung damage. Ask your healthcare provider for information if you currently smoke and need help to quit. E-cigarettes or smokeless tobacco still contain nicotine. Talk to your healthcare provider before you use these products. education on decrease to stopping nicotine products and stop smoking hotline given 7. Alcohol use educated on decrease to stop use ETOH and risk ETOH use on mental health, and medical refer to therapy refer to group . Long-term drug therapy - Discussion Notescontinue therapy 12/13/2024 Tobacco use (ICD-10 - Z72.0) 1. Bipolar affective disorder, Depakote DR 500 mg three times a day for agitation monitor for jale and agitation Vraylar 3 mg daily - improved - educated on all rx- stablize mood, agitation, psychosis, paranoia, and jael,- on Vraylar obtain labs PCP patient reported RLS at twice a day dosing and improved when decreased to daily Risperdal hx paranoia/ psychosis Effexor ER 150 MG DAILY IN AM for depression and anxiety EDUCATED ON ALL MEDICATIONS, benefits, side effects,risk Monitor B/P educated on all medications, benefits, side effects and risk, and educated on depression, anxiety, and mood d/o and educated on compliance of medications, metabolic and movement d/o education appointment's, continue therapy discussion with patient about course of treatmentand patient instructions. education on serotonin syndrome SSRI side effects discussed including but not limited to, gastric upset, nausea, vomiting, diarrhea and/or constipation, weight changes, sexual side effects including loss of libido, increased suicidal thoughts/behavi ors in children and young adults, and serotonin syndrome. Second generation antipsychotics (SGAs) have metabolic syndrome issues with weight gain, increase in prolactin, increased waist circumference, increased lipids, and increased glucose. Thus routine monitoring of weight, metabolic labs, etc. is indicated. A general rank ordering of antipsychotics that have the greatest to the least risk of metabolic effects is olanzapine, quetiapine, risperidone, ziprasidone, and aripiprazole. However, weight gain can occur with all of these drugs and considerable variability exists among patients receiving the same drug regarding the risk of metabolic effects. Anti-psychotic agents not only increase the risk of metabolic disorder, they also increase the risk of CVA, akathisia, and movement disorders including EPS or tardive dyskinesia (more common with first generation antipsychotics) and more. [facility] 2. Generalized anxiety disorder - Buspar 10 mg three times a day- therapy hx [facility]I [facility] [place] 3. Primary insomnia -sleep disturbance sleep study [facility] 4. Irritability and anger -Depakote DR 500 mg three times a day stable 5. elevted blood pressure reading educated on healthy b/p 120/80 monitor b/p at home refer to PCP, Urgent care/ER heart healthy diet and excise limit salt intake limit soda intake and caffiene increase water 6.tobacco use and vaping Do not smoke. Nicotine and other chemicals in cigarettes and cigars can cause lung damage. Ask your healthcare provider for information if you currently smoke and need help to quit. E-cigarettes or smokeless tobacco still contain nicotine. Talk to your healthcare provider before you use these products. education on decrease to stopping nicotine products and stop smoking hotline given 7. Alcohol use- stable has decrease use educated on decrease to stop use ETOH and risk ETOH use on mental health, and medical refer to therapy refer to group 8. ADHD r/o schedule [facility] testing ADHD self reporting scale completed . Long-term drug therapy - Discussion Notescontinue therapy 12/13/2024 Engages in vaping (ICD-10 - Z72.89) 1. Bipolar affective disorder, Depakote DR 500 mg three times a day for agitation monitor for jael and agitation Vraylar 3 mg daily - improved - educated on all rx- stablize mood, agitation, psychosis, paranoia, and jael,- on Vraylar obtain labs PCP patient reported RLS at twice a day dosing and improved when decreased to daily Risperdal hx paranoia/ psychosis Effexor ER 150 MG DAILY IN AM for depression and anxiety EDUCATED ON ALL MEDICATIONS, benefits, side effects,risk Monitor B/P educated on all medications, benefits, side effects and risk, and educated on depression, anxiety, and mood d/o and educated on compliance of medications, metabolic and movement d/o education appointment's, continue therapy discussion with patient about course of treatmentand patient instructions. education on serotonin syndrome SSRI side effects discussed including but not limited to, gastric upset, nausea, vomiting, diarrhea and/or constipation, weight changes, sexual side effects including loss of libido, increased suicidal thoughts/behavi ors in children and young adults, and serotonin syndrome. Second generation antipsychotics (SGAs) have metabolic syndrome issues with weight gain, increase in prolactin, increased waist circumference, increased lipids, and increased glucose. Thus routine monitoring of weight, metabolic labs, etc. is indicated. A general rank ordering of antipsychotics that have the greatest to the least risk of metabolic effects is olanzapine, quetiapine, risperidone, ziprasidone, and aripiprazole. However, weight gain can occur with all of these drugs and considerable variability exists among patients receiving the same drug regarding the risk of metabolic effects. Anti-psychotic agents not only increase the risk of metabolic disorder, they also increase the risk of CVA, akathisia, and movement disorders including EPS or tardive dyskinesia (more common with first generation antipsychotics) and more. [facility] 2. Generalized anxiety disorder - Buspar 10 mg three times a day- therapy hx [facility] [place] 3. Primary insomnia -sleep disturbance sleep study [facility] 4. Irritability and anger -Depakote DR 500 mg three times a day stable 5. elevted blood pressure reading educated on healthy b/p 120/80 monitor b/p at home refer to PCP, Urgent care/ER heart healthy diet and excise limit salt intake limit soda intake and caffiene increase water 6.tobacco use and vaping Do not smoke. Nicotine and other chemicals in cigarettes and cigars can cause lung damage. Ask your healthcare provider for information if you currently smoke and need help to quit. E-cigarettes or smokeless tobacco still contain nicotine. Talk to your healthcare provider before you use these products. education on decrease to stopping nicotine products and stop smoking hotline given 7. Alcohol use- stable has decrease use educated on decrease to stop use ETOH and risk ETOH use on mental health, and medical refer to therapy refer to group 8. ADHD r/o schedule Creyos testing ADHD self reporting scale completed . Long-term drug therapy - Discussion Notescontinue therapy 09/20/2024 Engages in vaping (ICD-10 - Z72.89) 1. Bipolar affective disorder, currently depressed, Depakote DR 500 mg three times a day for agitation monitor for jael and agitation Discuss and educated on Vraylar and Caplyta for Bipolar Will add Vraylar 1.5 mg daily for 1 week then increase to 3 mg daily samples and co-pay card given Risperdal 2 mg a day for bipolar - plan to [facility] and stop rx next visit - educated on all rx- pateint will be on 2 antipsychotic presently to stablize mood, agitation, psychosis, paranoia, and jael, obtain labs PCP patient reported RLS at twice a day dosing and improved when decreased to daily Risperdal hx paranoia/ psychosis Effexor ER 150 MG DAILY IN AM for depression and anxiety EDUCATED ON ALL MEDICATIONS, benefits, side effects,risk Monitor B/P educated on all medications, benefits, side effects and risk, and educated on depression, anxiety, and mood d/o and educated on compliance of medications, metabolic and movement d/o education appointment's, continue therapy discussion with patient about course of treatmentand patient instructions. education on serotonin syndrome SSRI side effects discussed including but not limited to, gastric upset, nausea, vomiting, diarrhea and/or constipation, weight changes, sexual side effects including loss of libido, increased suicidal thoughts/behavi ors in children and young adults, and serotonin syndrome. Second generation antipsychotics (SGAs) have metabolic syndrome issues with weight gain, increase in prolactin, increased waist circumference, increased lipids, and increased glucose. Thus routine monitoring of weight, metabolic labs, etc. is indicated. A general rank ordering of antipsychotics that have the greatest to the least risk of metabolic effects is olanzapine, quetiapine, risperidone, ziprasidone, and aripiprazole. However, weight gain can occur with all of these drugs and considerable variability exists among patients receiving the same drug regarding the risk of metabolic effects. Anti-psychotic agents not only increase the risk of metabolic disorder, they also increase the risk of CVA, akathisia, and movement disorders including EPS or tardive dyskinesia (more common with first generation antipsychotics) and more. [facility] 2. Generalized anxiety disorder - Buspar 10 mg three times a day- therapy hx [facility] [place] 3. Primary insomnia -sleep disturbance sleep study [facility] 4. Irritability and anger -Depakote DR 500 mg three times a day 5. elevted blood pressure reading educated on healthy b/p 120/80 monitor b/p at home refer to PCP, Urgent care/ER heart healthy diet and excise limit salt intake limit soda intake and caffiene increase water 6.tobacco use and vaping Do not smoke. Nicotine and other chemicals in cigarettes and cigars can cause lung damage. Ask your healthcare provider for information if you currently smoke and need help to quit. E-cigarettes or smokeless tobacco still contain nicotine. Talk to your healthcare provider before you use these products. education on decrease to stopping nicotine products and stop smoking hotline given 7. Alcohol use educated on decrease to stop use ETOH and risk ETOH use on mental health, and medical refer to therapy refer to group . Long-term drug therapy - Discussion Notescontinue therapy 12/27/2024 Engages in vaping (ICD-10 - Z72.89) 1. Bipolar affective disorder, Depakote DR 500 mg three times a day for agitation monitor for jael and agitation Vraylar 3 mg daily - improved - educated on all rx- stablize mood, agitation, psychosis, paranoia, and jael,- on Vraylar obtain labs PCP patient reported RLS at twice a day dosing and improved when decreased to daily Risperdal hx paranoia/ psychosis Effexor ER 150 MG DAILY IN AM for depression and anxiety EDUCATED ON ALL MEDICATIONS, benefits, side effects,risk Monitor B/P educated on all medications, benefits, side effects and risk, and educated on depression, anxiety, and mood d/o and educated on compliance of medications, metabolic and movement d/o education appointment's, continue therapy discussion with patient about course of treatmentand patient instructions. education on serotonin syndrome SSRI side effects discussed including but not limited to, gastric upset, nausea, vomiting, diarrhea and/or constipation, weight changes, sexual side effects including loss of libido, increased suicidal thoughts/behavi ors in children and young adults, and serotonin syndrome. Second generation antipsychotics (SGAs) have metabolic syndrome issues with weight gain, increase in prolactin, increased waist circumference, increased lipids, and increased glucose. Thus routine monitoring of weight, metabolic labs, etc. is indicated. A general rank ordering of antipsychotics that have the greatest to the least risk of metabolic effects is olanzapine, quetiapine, risperidone, ziprasidone, and aripiprazole. However, weight gain can occur with all of these drugs and considerable variability exists among patients receiving the same drug regarding the risk of metabolic effects. Anti-psychotic agents not only increase the risk of metabolic disorder, they also increase the risk of CVA, akathisia, and movement disorders including EPS or tardive dyskinesia (more common with first generation antipsychotics) and more. [facility] 2. Generalized anxiety disorder - Buspar 10 mg three times a day- therapy hx [facility] [place] 3. Primary insomnia -sleep disturbance sleep study [facility] 4. Irritability and anger -Depakote DR 500 mg three times a day stable 5. elevted blood pressure reading educated on healthy b/p 120/80 monitor b/p at home refer to PCP, Urgent care/ER heart healthy diet and excise limit salt intake limit soda intake and caffiene increase water 6.tobacco use and vaping- repoted stopped vaping and aime stop smoking when complete 1/2 pack currently has 12/27/24 Do not smoke. Nicotine and other chemicals in cigarettes and cigars can cause lung damage. Ask your healthcare provider for information if you currently smoke and need help to quit. E-cigarettes or smokeless tobacco still contain nicotine. Talk to your healthcare provider before you use these products. education on decrease to stopping nicotine products and stop smoking hotline given 7. Alcohol use- stable has decrease use educated on decrease to stop use ETOH and risk ETOH use on mental health, and medical refer to therapy refer to group 8. ADHD r/o reviewed Creyos testing- indicative ADHD Score 5 Part A 5/6 Part B 08/16 ADHD self reporting scale completed NO CONTROL SUBSTANCE PRESCRIBED BY ELENI- CANNABIS USE- patient reported may consider stopping cannabis use Discuss and educated on non stimulates - Straterra 25 mg daily in am for 1 week, then increase to Straterra 40 mg daily in am [place] discuss and educated on hx Wellbutrin (paranoia) ADHD stimulates education Discuss with patient risk of misuse, abuse, and addiction before prescribing stimulant medicines. 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 Educate patients and their families on these serious risks, proper storage of the medicine, and proper disposal of any unused medicine. Educated patient will monitor Throughout treatment, regularly assess and monitor them for signs and symptoms of nonmedical use, addiction, and potential diversion, which may be evidenced by more frequent renewal. requests than warranted by the prescribed dosage. Random UDS [place] prescription reviewed local pharmacy in [facility], no early refills on control substance educated on non-stimulate and stimulates 9. Cannabis use NO CONTROL SUBSTANCE PRESCRIBED BY ELENI - patient reported may consider stopping cannabis use discuss random UDS Cannabis Use Education NO CONTROL SUBSTANCE PRESCRIBED BY ELENI with cannabis use Recommend decrease/stop cannabis use as it can negatively impact mood, motivation, anxiety, sleep, focus/concentra tion/memory (vigilance, elasticity, processing and attention); can also contribute to development of psychosis. Recommend decrease/stop cannabis use as it may be negatively impacting mood, motivation, anxiety, sleep, focus; can also contribute to development of psychosis Cannabis/mariju yesica information: http_s://[place]orent[place].gov/publicat ions/drugfacts/ cannabis-mariju yesica http_s://[employer]/c teeuibv-pwd-nmm order-marijuana -adhd/ Discussion Notes continue therapy 02/07/2025 ADHD (attention deficit hyperactivity disorder), combined type (ICD-10 - F90.2) Attention Deficit Hyperactivity Disorder (ADHD) in Adults: Care Instructions material was published, Learning About Attention Deficit Hyperactivity Disorder (ADHD) in Adults material was published, Learning About Stimulant Medicines for Attention Deficit Hyperactivity Disorder (ADHD) material was published 1. Bipolar affective disorder, Depakote DR 500 mg three times a day for agitation monitor for jael and agitation labs ordered Vraylar 3 mg daily - improved - educated on all rx- stablize mood, agitation, psychosis, paranoia, and jael,- on Vraylar obtain labs PCP patient reported RLS at twice a day dosing and improved when decreased to daily Risperdal hx paranoia/ psychosis Effexor ER 150 MG DAILY IN AM for depression and anxiety EDUCATED ON ALL MEDICATIONS, benefits, side effects,risk Monitor B/P educated on all medications, benefits, side effects and risk, and educated on depression, anxiety, and mood d/o and educated on compliance of medications, metabolic and movement d/o education appointment's, continue therapy discussion with patient about course of treatmentand patient instructions. education on serotonin syndrome SSRI side effects discussed including but not limited to, gastric upset, nausea, vomiting, diarrhea and/or constipation, weight changes, sexual side effects including loss of libido, increased suicidal thoughts/behavi ors in children and young adults, and serotonin syndrome. Second generation antipsychotics (SGAs) have metabolic syndrome issues with weight gain, increase in prolactin, increased waist circumference, increased lipids, and increased glucose. Thus routine monitoring of weight, metabolic labs, etc. is indicated. A general rank ordering of antipsychotics that have the greatest to the least risk of metabolic effects is olanzapine, quetiapine, risperidone, ziprasidone, and aripiprazole. However, weight gain can occur with all of these drugs and considerable variability exists among patients receiving the same drug regarding the risk of metabolic effects. Anti-psychotic agents not only increase the risk of metabolic disorder, they also increase the risk of CVA, akathisia, and movement disorders including EPS or tardive dyskinesia (more common with first generation antipsychotics) and more. [facility] 2. Generalized anxiety disorder - Buspar 10 mg three times a day- therapy hx [facility] [place] 3. Primary insomnia -sleep disturbance sleep study [facility] 4. Irritability and anger -Depakote DR 500 mg three times a day stable 5. blood pressure reading educated on healthy b/p 120/80 monitor b/p at home refer to PCP, Urgent care/ER heart healthy diet and excise limit salt intake limit soda intake and caffiene increase water 6.tobacco use and vaping- repoted stopped vaping and aime stop smoking when complete 1/2 pack currently has 12/27/24 Do not smoke. Nicotine and other chemicals in cigarettes and cigars can cause lung damage. Ask your healthcare provider for information if you currently smoke and need help to quit. E-cigarettes or smokeless tobacco still contain nicotine. Talk to your healthcare provider before you use these products. education on decrease to stopping nicotine products and stop smoking hotline given 7. Alcohol use- stable has decrease use educated on decrease to stop use ETOH and risk ETOH use on mental health, and medical refer to therapy refer to group 8. ADHD r/o reviewed Creyos testing- indicative ADHD Score 5 Part A 6 Part B 08/16 ADHD self reporting scale completed NO CONTROL SUBSTANCE PRESCRIBED BY ELENI- CANNABIS USE- patient reported may consider stopping cannabis use Discuss and educated on non stimulates - Increase Straterra 60 mg daily in am hx Wellbutrin (paranoia) ADHD stimulates education Discuss with patient risk of misuse, abuse, and addiction before prescribing stimulant medicines. 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 Educate patients and their families on these serious risks, proper storage of the medicine, and proper disposal of any unused medicine. Educated patient will monitor Throughout treatment, regularly assess and monitor them for signs and symptoms of nonmedical use, addiction, and potential diversion, which may be evidenced by more frequent renewal. requests than warranted by the prescribed dosage. Random UDS [place] prescription reviewed local pharmacy in [facility], no early refills on control substance educated on non-stimulate and stimulates 9. Cannabis use NO CONTROL SUBSTANCE PRESCRIBED BY ELENI - patient reported may consider stopping cannabis use discuss random UDS Cannabis Use Education NO CONTROL SUBSTANCE PRESCRIBED BY ELENI with cannabis use Recommend decrease/stop cannabis use as it can negatively impact mood, motivation, anxiety, sleep, focus/concentra tion/memory (vigilance, elasticity, processing and attention); can also contribute to development of psychosis. Recommend decrease/stop cannabis use as it may be negatively impacting mood, motivation, anxiety, sleep, focus; can also contribute to development of psychosis Cannabis/mariju yesica information: http_s://florentino.n ih.gov/publicat ions/drugfacts/ cannabis-mariju yesica http_s://www.[employer]/c oklrucz-bga-zys order-marijuana -adhd/ Discussion Notes continue therapy 02/07/2025 Marijuana use (ICD-10 - F12.90) Marijuana Use: Care Instructions material was published, Learning About Cannabis Use Disorder material was published 1. Bipolar affective disorder, Depakote DR 500 mg three times a day for agitation monitor for jael and agitation labs ordered Vraylar 3 mg daily - improved - educated on all rx- stablize mood, agitation, psychosis, paranoia, and jael,- on Vraylar obtain labs PCP patient reported RLS at twice a day dosing and improved when decreased to daily Risperdal hx paranoia/ psychosis Effexor ER 150 MG DAILY IN AM for depression and anxiety EDUCATED ON ALL MEDICATIONS, benefits, side effects,risk Monitor B/P educated on all medications, benefits, side effects and risk, and educated on depression, anxiety, and mood d/o and educated on compliance of medications, metabolic and movement d/o education appointment's, continue therapy discussion with patient about course of treatmentand patient instructions. education on serotonin syndrome SSRI side effects discussed including but not limited to, gastric upset, nausea, vomiting, diarrhea and/or constipation, weight changes, sexual side effects including loss of libido, increased suicidal thoughts/behavi ors in children and young adults, and serotonin syndrome. Second generation antipsychotics (SGAs) have metabolic syndrome issues with weight gain, increase in prolactin, increased waist circumference, increased lipids, and increased glucose. Thus routine monitoring of weight, metabolic labs, etc. is indicated. A general rank ordering of antipsychotics that have the greatest to the least risk of metabolic effects is olanzapine, quetiapine, risperidone, ziprasidone, and aripiprazole. However, weight gain can occur with all of these drugs and considerable variability exists among patients receiving the same drug regarding the risk of metabolic effects. Anti-psychotic agents not only increase the risk of metabolic disorder, they also increase the risk of CVA, akathisia, and movement disorders including EPS or tardive dyskinesia (more common with first generation antipsychotics) and more. [facility] 2. Generalized anxiety disorder - Buspar 10 mg three times a day- therapy hx [facility] [place] 3. Primary insomnia -sleep disturbance sleep study [facility] 4. Irritability and anger -Depakote DR 500 mg three times a day stable 5. blood pressure reading educated on healthy b/p 120/80 monitor b/p at home refer to PCP, Urgent care/ER heart healthy diet and excise limit salt intake limit soda intake and caffiene increase water 6.tobacco use and vaping- repoted stopped vaping and aime stop smoking when complete 1/2 pack currently has 12/27/24 Do not smoke. Nicotine and other chemicals in cigarettes and cigars can cause lung damage. Ask your healthcare provider for information if you currently smoke and need help to quit. E-cigarettes or smokeless tobacco still contain nicotine. Talk to your healthcare provider before you use these products. education on decrease to stopping nicotine products and stop smoking hotline given 7. Alcohol use- stable has decrease use educated on decrease to stop use ETOH and risk ETOH use on mental health, and medical refer to therapy refer to group 8. ADHD r/o reviewed Creyos testing- indicative ADHD Score 5 Part A 6 Part B 08/16 ADHD self reporting scale completed NO CONTROL SUBSTANCE PRESCRIBED BY ELENI- CANNABIS USE- patient reported may consider stopping cannabis use Discuss and educated on non stimulates - Increase Straterra 60 mg daily in am hx Wellbutrin (paranoia) ADHD stimulates education Discuss with patient risk of misuse, abuse, and addiction before prescribing stimulant medicines. 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 Educate patients and their families on these serious risks, proper storage of the medicine, and proper disposal of any unused medicine. Educated patient will monitor Throughout treatment, regularly assess and monitor them for signs and symptoms of nonmedical use, addiction, and potential diversion, which may be evidenced by more frequent renewal. requests than warranted by the prescribed dosage. Random UDS [place] prescription reviewed local pharmacy in [facility], no early refills on control substance educated on non-stimulate and stimulates 9. Cannabis use NO CONTROL SUBSTANCE PRESCRIBED BY ELENI - patient reported may consider stopping cannabis use discuss random UDS Cannabis Use Education NO CONTROL SUBSTANCE PRESCRIBED BY ELENI with cannabis use Recommend decrease/stop cannabis use as it can negatively impact mood, motivation, anxiety, sleep, focus/concentra tion/memory (vigilance, elasticity, processing and attention); can also contribute to development of psychosis. Recommend decrease/stop cannabis use as it may be negatively impacting mood, motivation, anxiety, sleep, focus; can also contribute to development of psychosis Cannabis/mariju yesica information: http_s://florentino.n ih.gov/publicat ions/drugfacts/ cannabis-mariju yesica http_s://www.[employer].com/c fyegilj-ytt-wqk order-marijuana -adhd/ Discussion Notes continue therapy 12/27/2024 Alcohol use (ICD-10 - F10.90) 1. Bipolar affective disorder, Depakote DR 500 mg three times a day for agitation monitor for jael and agitation Vraylar 3 mg daily - improved - educated on all rx- stablize mood, agitation, psychosis, paranoia, and jael,- on Vraylar obtain labs PCP patient reported RLS at twice a day dosing and improved when decreased to daily Risperdal hx paranoia/ psychosis Effexor ER 150 MG DAILY IN AM for depression and anxiety EDUCATED ON ALL MEDICATIONS, benefits, side effects,risk Monitor B/P educated on all medications, benefits, side effects and risk, and educated on depression, anxiety, and mood d/o and educated on compliance of medications, metabolic and movement d/o education appointment's, continue therapy discussion with patient about course of treatmentand patient instructions. education on serotonin syndrome SSRI side effects discussed including but not limited to, gastric upset, nausea, vomiting, diarrhea and/or constipation, weight changes, sexual side effects including loss of libido, increased suicidal thoughts/behavi ors in children and young adults, and serotonin syndrome. Second generation antipsychotics (SGAs) have metabolic syndrome issues with weight gain, increase in prolactin, increased waist circumference, increased lipids, and increased glucose. Thus routine monitoring of weight, metabolic labs, etc. is indicated. A general rank ordering of antipsychotics that have the greatest to the least risk of metabolic effects is olanzapine, quetiapine, risperidone, ziprasidone, and aripiprazole. However, weight gain can occur with all of these drugs and considerable variability exists among patients receiving the same drug regarding the risk of metabolic effects. Anti-psychotic agents not only increase the risk of metabolic disorder, they also increase the risk of CVA, akathisia, and movement disorders including EPS or tardive dyskinesia (more common with first generation antipsychotics) and more. [facility] 2. Generalized anxiety disorder - Buspar 10 mg three times a day- therapy hx [facility] [place] 3. Primary insomnia -sleep disturbance sleep study [facility] in [facility] 4. Irritability and anger -Depakote DR 500 mg three times a day stable 5. elevted blood pressure reading educated on healthy b/p 120/80 monitor b/p at home refer to PCP, Urgent care/ER heart healthy diet and excise limit salt intake limit soda intake and caffiene increase water 6.tobacco use and vaping- repoted stopped vaping and aime stop smoking when complete 1/2 pack currently has 12/27/24 Do not smoke. Nicotine and other chemicals in cigarettes and cigars can cause lung damage. Ask your healthcare provider for information if you currently smoke and need help to quit. E-cigarettes or smokeless tobacco still contain nicotine. Talk to your healthcare provider before you use these products. education on decrease to stopping nicotine products and stop smoking hotline given 7. Alcohol use- stable has decrease use educated on decrease to stop use ETOH and risk ETOH use on mental health, and medical refer to therapy refer to group 8. ADHD r/o reviewed Creyos testing- indicative ADHD Score 5 Part A /6 Part B 08/16 ADHD self reporting scale completed NO CONTROL SUBSTANCE PRESCRIBED BY ELENI- CANNABIS USE- patient reported may consider stopping cannabis use Discuss and educated on non stimulates - Straterra 25 mg daily in am for 1 week, then increase to Straterra 40 mg daily in am [place] discuss and educated on hx Wellbutrin (paranoia) ADHD stimulates education Discuss with patient risk of misuse, abuse, and addiction before prescribing stimulant medicines. 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 Educate patients and their families on these serious risks, proper storage of the medicine, and proper disposal of any unused medicine. Educated patient will monitor Throughout treatment, regularly assess and monitor them for signs and symptoms of nonmedical use, addiction, and potential diversion, which may be evidenced by more frequent renewal. requests than warranted by the prescribed dosage. Random UDS [place] prescription reviewed local pharmacy in [facility], no early refills on control substance educated on non-stimulate and stimulates 9. Cannabis use NO CONTROL SUBSTANCE PRESCRIBED BY ELENI - patient reported may consider stopping cannabis use discuss random UDS Cannabis Use Education NO CONTROL SUBSTANCE PRESCRIBED BY ELENI with cannabis use Recommend decrease/stop cannabis use as it can negatively impact mood, motivation, anxiety, sleep, focus/concentra tion/memory (vigilance, elasticity, processing and attention); can also contribute to development of psychosis. Recommend decrease/stop cannabis use as it may be negatively impacting mood, motivation, anxiety, sleep, focus; can also contribute to development of psychosis Cannabis/mariju yesica information: http_s://florent[place].n [place].gov/publicat ions/drugfacts/ cannabis-mariju yesica http_s://www.[employer].com/c wmhxqau-qir-uuk order-marijuana -adhd/ Discussion Notes continue therapy 09/20/2024 Alcohol use (ICD-10 - F10.90) 1. Bipolar affective disorder, currently depressed, Depakote DR 500 mg three times a day for agitation monitor for jael and agitation Discuss and educated on Vraylar and Caplyta for Bipolar Will add Vraylar 1.5 mg daily for 1 week then increase to 3 mg daily samples and co-pay card given Risperdal 2 mg a day for bipolar - plan to [facility] and stop rx next visit - educated on all rx- pateint will be on 2 antipsychotic presently to stablize mood, agitation, psychosis, paranoia, and jael, obtain labs PCP patient reported RLS at twice a day dosing and improved when decreased to daily Risperdal hx paranoia/ psychosis Effexor ER 150 MG DAILY IN AM for depression and anxiety EDUCATED ON ALL MEDICATIONS, benefits, side effects,risk Monitor B/P educated on all medications, benefits, side effects and risk, and educated on depression, anxiety, and mood d/o and educated on compliance of medications, metabolic and movement d/o education appointment's, continue therapy discussion with patient about course of treatmentand patient instructions. education on serotonin syndrome SSRI side effects discussed including but not limited to, gastric upset, nausea, vomiting, diarrhea and/or constipation, weight changes, sexual side effects including loss of libido, increased suicidal thoughts/behavi ors in children and young adults, and serotonin syndrome. Second generation antipsychotics (SGAs) have metabolic syndrome issues with weight gain, increase in prolactin, increased waist circumference, increased lipids, and increased glucose. Thus routine monitoring of weight, metabolic labs, etc. is indicated. A general rank ordering of antipsychotics that have the greatest to the least risk of metabolic effects is olanzapine, quetiapine, risperidone, ziprasidone, and aripiprazole. However, weight gain can occur with all of these drugs and considerable variability exists among patients receiving the same drug regarding the risk of metabolic effects. Anti-psychotic agents not only increase the risk of metabolic disorder, they also increase the risk of CVA, akathisia, and movement disorders including EPS or tardive dyskinesia (more common with first generation antipsychotics) and more. [facility] [place] 2. Generalized anxiety disorder - Buspar 10 mg three times a day- therapy hx [facility] [place] 3. Primary insomnia -sleep disturbance sleep study [facility] in [facility] 4. Irritability and anger -Depakote DR 500 mg three times a day 5. elevted blood pressure reading educated on healthy b/p 120/80 monitor b/p at home refer to PCP, Urgent care/ER heart healthy diet and excise limit salt intake limit soda intake and caffiene increase water 6.tobacco use and vaping Do not smoke. Nicotine and other chemicals in cigarettes and cigars can cause lung damage. Ask your healthcare provider for information if you currently smoke and need help to quit. E-cigarettes or smokeless tobacco still contain nicotine. Talk to your healthcare provider before you use these products. education on decrease to stopping nicotine products and stop smoking hotline given 7. Alcohol use educated on decrease to stop use ETOH and risk ETOH use on mental health, and medical refer to therapy refer to group . Long-term drug therapy - Discussion Notescontinue therapy 12/13/2024 Alcohol use (ICD-10 - F10.90) 1. Bipolar affective disorder, Depakote DR 500 mg three times a day for agitation monitor for jael and agitation Vraylar 3 mg daily - improved - educated on all rx- stablize mood, agitation, psychosis, paranoia, and jael,- on Vraylar obtain labs PCP patient reported RLS at twice a day dosing and improved when decreased to daily Risperdal hx paranoia/ psychosis Effexor ER 150 MG DAILY IN AM for depression and anxiety EDUCATED ON ALL MEDICATIONS, benefits, side effects,risk Monitor B/P educated on all medications, benefits, side effects and risk, and educated on depression, anxiety, and mood d/o and educated on compliance of medications, metabolic and movement d/o education appointment's, continue therapy discussion with patient about course of treatmentand patient instructions. education on serotonin syndrome SSRI side effects discussed including but not limited to, gastric upset, nausea, vomiting, diarrhea and/or constipation, weight changes, sexual side effects including loss of libido, increased suicidal thoughts/behavi ors in children and young adults, and serotonin syndrome. Second generation antipsychotics (SGAs) have metabolic syndrome issues with weight gain, increase in prolactin, increased waist circumference, increased lipids, and increased glucose. Thus routine monitoring of weight, metabolic labs, etc. is indicated. A general rank ordering of antipsychotics that have the greatest to the least risk of metabolic effects is olanzapine, quetiapine, risperidone, ziprasidone, and aripiprazole. However, weight gain can occur with all of these drugs and considerable variability exists among patients receiving the same drug regarding the risk of metabolic effects. Anti-psychotic agents not only increase the risk of metabolic disorder, they also increase the risk of CVA, akathisia, and movement disorders including EPS or tardive dyskinesia (more common with first generation antipsychotics) and more. [facility] [place] 2. Generalized anxiety disorder - Buspar 10 mg three times a day- therapy hx [facility] [place] 3. Primary insomnia -sleep disturbance sleep study [facility] in [facility] 4. Irritability and anger -Depakote DR 500 mg three times a day stable 5. elevted blood pressure reading educated on healthy b/p 120/80 monitor b/p at home refer to PCP, Urgent care/ER heart healthy diet and excise limit salt intake limit soda intake and caffiene increase water 6.tobacco use and vaping Do not smoke. Nicotine and other chemicals in cigarettes and cigars can cause lung damage. Ask your healthcare provider for information if you currently smoke and need help to quit. E-cigarettes or smokeless tobacco still contain nicotine. Talk to your healthcare provider before you use these products. education on decrease to stopping nicotine products and stop smoking hotline given 7. Alcohol use- stable has decrease use educated on decrease to stop use ETOH and risk ETOH use on mental health, and medical refer to therapy refer to group 8. ADHD r/o schedule [facility] testing ADHD self reporting scale completed . Long-term drug therapy - Discussion Notescontinue therapy 12/13/2024 Encounter for screening for depression (ICD-10 - Z13.31) 1. Bipolar affective disorder, Depakote DR 500 mg three times a day for agitation monitor for jael and agitation Vraylar 3 mg daily - improved - educated on all rx- stablize mood, agitation, psychosis, paranoia, and jael,- on Vraylar obtain labs PCP patient reported RLS at twice a day dosing and improved when decreased to daily Risperdal hx paranoia/ psychosis Effexor ER 150 MG DAILY IN AM for depression and anxiety EDUCATED ON ALL MEDICATIONS, benefits, side effects,risk Monitor B/P educated on all medications, benefits, side effects and risk, and educated on depression, anxiety, and mood d/o and educated on compliance of medications, metabolic and movement d/o education appointment's, continue therapy discussion with patient about course of treatmentand patient instructions. education on serotonin syndrome SSRI side effects discussed including but not limited to, gastric upset, nausea, vomiting, diarrhea and/or constipation, weight changes, sexual side effects including loss of libido, increased suicidal thoughts/behavi ors in children and young adults, and serotonin syndrome. Second generation antipsychotics (SGAs) have metabolic syndrome issues with weight gain, increase in prolactin, increased waist circumference, increased lipids, and increased glucose. Thus routine monitoring of weight, metabolic labs, etc. is indicated. A general rank ordering of antipsychotics that have the greatest to the least risk of metabolic effects is olanzapine, quetiapine, risperidone, ziprasidone, and aripiprazole. However, weight gain can occur with all of these drugs and considerable variability exists among patients receiving the same drug regarding the risk of metabolic effects. Anti-psychotic agents not only increase the risk of metabolic disorder, they also increase the risk of CVA, akathisia, and movement disorders including EPS or tardive dyskinesia (more common with first generation antipsychotics) and more. [facility] [place] 2. Generalized anxiety disorder - Buspar 10 mg three times a day- therapy hx [facility] [place] 3. Primary insomnia -sleep disturbance sleep study [facility] in [facility] 4. Irritability and anger -Depakote DR 500 mg three times a day stable 5. elevted blood pressure reading educated on healthy b/p 120/80 monitor b/p at home refer to PCP, Urgent care/ER heart healthy diet and excise limit salt intake limit soda intake and caffiene increase water 6.tobacco use and vaping Do not smoke. Nicotine and other chemicals in cigarettes and cigars can cause lung damage. Ask your healthcare provider for information if you currently smoke and need help to quit. E-cigarettes or smokeless tobacco still contain nicotine. Talk to your healthcare provider before you use these products. education on decrease to stopping nicotine products and stop smoking hotline given 7. Alcohol use- stable has decrease use educated on decrease to stop use ETOH and risk ETOH use on mental health, and medical refer to therapy refer to group 8. ADHD r/o schedule Creyos testing ADHD self reporting scale completed . Long-term drug therapy - Discussion Notescontinue therapy 12/27/2024 Encounter for screening for depression (ICD-10 - Z13.31) 1. Bipolar affective disorder, Depakote DR 500 mg three times a day for agitation monitor for jeal and agitation Vraylar 3 mg daily - improved - educated on all rx- stablize mood, agitation, psychosis, paranoia, and jael,- on Vraylar obtain labs PCP patient reported RLS at twice a day dosing and improved when decreased to daily Risperdal hx paranoia/ psychosis Effexor ER 150 MG DAILY IN AM for depression and anxiety EDUCATED ON ALL MEDICATIONS, benefits, side effects,risk Monitor B/P educated on all medications, benefits, side effects and risk, and educated on depression, anxiety, and mood d/o and educated on compliance of medications, metabolic and movement d/o education appointment's, continue therapy discussion with patient about course of treatmentand patient instructions. education on serotonin syndrome SSRI side effects discussed including but not limited to, gastric upset, nausea, vomiting, diarrhea and/or constipation, weight changes, sexual side effects including loss of libido, increased suicidal thoughts/behavi ors in children and young adults, and serotonin syndrome. Second generation antipsychotics (SGAs) have metabolic syndrome issues with weight gain, increase in prolactin, increased waist circumference, increased lipids, and increased glucose. Thus routine monitoring of weight, metabolic labs, etc. is indicated. A general rank ordering of antipsychotics that have the greatest to the least risk of metabolic effects is olanzapine, quetiapine, risperidone, ziprasidone, and aripiprazole. However, weight gain can occur with all of these drugs and considerable variability exists among patients receiving the same drug regarding the risk of metabolic effects. Anti-psychotic agents not only increase the risk of metabolic disorder, they also increase the risk of CVA, akathisia, and movement disorders including EPS or tardive dyskinesia (more common with first generation antipsychotics) and more. [facility] [place] 2. Generalized anxiety disorder - Buspar 10 mg three times a day- therapy hx [facility] [place] 3. Primary insomnia -sleep disturbance sleep study [facility] in [facility] 4. Irritability and anger -Depakote DR 500 mg three times a day stable 5. elevted blood pressure reading educated on healthy b/p 120/80 monitor b/p at home refer to PCP, Urgent care/ER heart healthy diet and excise limit salt intake limit soda intake and caffiene increase water 6.tobacco use and vaping- repoted stopped vaping and aime stop smoking when complete 1/2 pack currently has 12/27/24 Do not smoke. Nicotine and other chemicals in cigarettes and cigars can cause lung damage. Ask your healthcare provider for information if you currently smoke and need help to quit. E-cigarettes or smokeless tobacco still contain nicotine. Talk to your healthcare provider before you use these products. education on decrease to stopping nicotine products and stop smoking hotline given 7. Alcohol use- stable has decrease use educated on decrease to stop use ETOH and risk ETOH use on mental health, and medical refer to therapy refer to group 8. ADHD r/o reviewed Creyos testing- indicative ADHD Score 5 Part A 02/07 Part B 08/16 ADHD self reporting scale completed NO CONTROL SUBSTANCE PRESCRIBED BY ELENI- CANNABIS USE- patient reported may consider stopping cannabis use Discuss and educated on non stimulates - Straterra 25 mg daily in am for 1 week, then increase to Straterra 40 mg daily in am [place] discuss and educated on hx Wellbutrin (paranoia) ADHD stimulates education Discuss with patient risk of misuse, abuse, and addiction before prescribing stimulant medicines. 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 Educate patients and their families on these serious risks, proper storage of the medicine, and proper disposal of any unused medicine. Educated patient will monitor Throughout treatment, regularly assess and monitor them for signs and symptoms of nonmedical use, addiction, and potential diversion, which may be evidenced by more frequent renewal. requests than warranted by the prescribed dosage. Random UDS [place] prescription reviewed local pharmacy in [facility], no early refills on control substance educated on non-stimulate and stimulates 9. Cannabis use NO CONTROL SUBSTANCE PRESCRIBED BY ELENI - patient reported may consider stopping cannabis use discuss random UDS Cannabis Use Education NO CONTROL SUBSTANCE PRESCRIBED BY ELENI with cannabis use Recommend decrease/stop cannabis use as it can negatively impact mood, motivation, anxiety, sleep, focus/concentra tion/memory (vigilance, elasticity, processing and attention); can also contribute to development of psychosis. Recommend decrease/stop cannabis use as it may be negatively impacting mood, motivation, anxiety, sleep, focus; can also contribute to development of psychosis Cannabis/mariju yesica information: http_s://[place]orent[place].gov/publicat ions/drugfacts/ cannabis-mariju yesica http_s://www.[employer].com/c blzyitx-xoc-lqd order-marijuana -adhd/ Discussion Notes continue therapy 02/07/2025 Negative depression screening (ICD-10 - Z13.31) 1. Bipolar affective disorder, Depakote DR 500 mg three times a day for agitation monitor for jael and agitation labs ordered Vraylar 3 mg daily - improved - educated on all rx- stablize mood, agitation, psychosis, paranoia, and jael,- on Vraylar obtain labs PCP patient reported RLS at twice a day dosing and improved when decreased to daily Risperdal hx paranoia/ psychosis Effexor ER 150 MG DAILY IN AM for depression and anxiety EDUCATED ON ALL MEDICATIONS, benefits, side effects,risk Monitor B/P educated on all medications, benefits, side effects and risk, and educated on depression, anxiety, and mood d/o and educated on compliance of medications, metabolic and movement d/o education appointment's, continue therapy discussion with patient about course of treatmentand patient instructions. education on serotonin syndrome SSRI side effects discussed including but not limited to, gastric upset, nausea, vomiting, diarrhea and/or constipation, weight changes, sexual side effects including loss of libido, increased suicidal thoughts/behavi ors in children and young adults, and serotonin syndrome. Second generation antipsychotics (SGAs) have metabolic syndrome issues with weight gain, increase in prolactin, increased waist circumference, increased lipids, and increased glucose. Thus routine monitoring of weight, metabolic labs, etc. is indicated. A general rank ordering of antipsychotics that have the greatest to the least risk of metabolic effects is olanzapine, quetiapine, risperidone, ziprasidone, and aripiprazole. However, weight gain can occur with all of these drugs and considerable variability exists among patients receiving the same drug regarding the risk of metabolic effects. Anti-psychotic agents not only increase the risk of metabolic disorder, they also increase the risk of CVA, akathisia, and movement disorders including EPS or tardive dyskinesia (more common with first generation antipsychotics) and more. [facility] [place] 2. Generalized anxiety disorder - Buspar 10 mg three times a day- therapy hx [facility] [place] 3. Primary insomnia -sleep disturbance sleep study [facility] in [facility] 4. Irritability and anger -Depakote DR 500 mg three times a day stable 5. blood pressure reading educated on healthy b/p 120/80 monitor b/p at home refer to PCP, Urgent care/ER heart healthy diet and excise limit salt intake limit soda intake and caffiene increase water 6.tobacco use and vaping- repoted stopped vaping and aime stop smoking when complete 1/2 pack currently has 12/27/24 Do not smoke. Nicotine and other chemicals in cigarettes and cigars can cause lung damage. Ask your healthcare provider for information if you currently smoke and need help to quit. E-cigarettes or smokeless tobacco still contain nicotine. Talk to your healthcare provider before you use these products. education on decrease to stopping nicotine products and stop smoking hotline given 7. Alcohol use- stable has decrease use educated on decrease to stop use ETOH and risk ETOH use on mental health, and medical refer to therapy refer to group 8. ADHD r/o reviewed Creyos testing- indicative ADHD Score 5 Part A 02/07 Part B 08/16 ADHD self reporting scale completed NO CONTROL SUBSTANCE PRESCRIBED BY ELENI- CANNABIS USE- patient reported may consider stopping cannabis use Discuss and educated on non stimulates - Increase Straterra 60 mg daily in am hx Wellbutrin (paranoia) ADHD stimulates education Discuss with patient risk of misuse, abuse, and addiction before prescribing stimulant medicines. 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 Educate patients and their families on these serious risks, proper storage of the medicine, and proper disposal of any unused medicine. Educated patient will monitor Throughout treatment, regularly assess and monitor them for signs and symptoms of nonmedical use, addiction, and potential diversion, which may be evidenced by more frequent renewal. requests than warranted by the prescribed dosage. Random UDS [place] prescription reviewed local pharmacy in [facility], no early refills on control substance educated on non-stimulate and stimulates 9. Cannabis use NO CONTROL SUBSTANCE PRESCRIBED BY ELENI - patient reported may consider stopping cannabis use discuss random UDS Cannabis Use Education NO CONTROL SUBSTANCE PRESCRIBED BY ELENI with cannabis use Recommend decrease/stop cannabis use as it can negatively impact mood, motivation, anxiety, sleep, focus/concentra tion/memory (vigilance, elasticity, processing and attention); can also contribute to development of psychosis. Recommend decrease/stop cannabis use as it may be negatively impacting mood, motivation, anxiety, sleep, focus; can also contribute to development of psychosis Cannabis/mariju yesica information: http_s://florentino.n ih.gov/publicat ions/drugfacts/ cannabis-mariju yesica http_s://www.[employer].com/c htbgjne-jrw-aob order-marijuana -adhd/ Discussion Notes continue therapy 12/27/2024 Encounter for screening for cardiovascular disorders (ICD-10 - Z13.6) 1. Bipolar affective disorder, Depakote DR 500 mg three times a day for agitation monitor for jael and agitation Vraylar 3 mg daily - improved - educated on all rx- stablize mood, agitation, psychosis, paranoia, and jael,- on Vraylar obtain labs PCP patient reported RLS at twice a day dosing and improved when decreased to daily Risperdal hx paranoia/ psychosis Effexor ER 150 MG DAILY IN AM for depression and anxiety EDUCATED ON ALL MEDICATIONS, benefits, side effects,risk Monitor B/P educated on all medications, benefits, side effects and risk, and educated on depression, anxiety, and mood d/o and educated on compliance of medications, metabolic and movement d/o education appointment's, continue therapy discussion with patient about course of treatmentand patient instructions. education on serotonin syndrome SSRI side effects discussed including but not limited to, gastric upset, nausea, vomiting, diarrhea and/or constipation, weight changes, sexual side effects including loss of libido, increased suicidal thoughts/behavi ors in children and young adults, and serotonin syndrome. Second generation antipsychotics (SGAs) have metabolic syndrome issues with weight gain, increase in prolactin, increased waist circumference, increased lipids, and increased glucose. Thus routine monitoring of weight, metabolic labs, etc. is indicated. A general rank ordering of antipsychotics that have the greatest to the least risk of metabolic effects is olanzapine, quetiapine, risperidone, ziprasidone, and aripiprazole. However, weight gain can occur with all of these drugs and considerable variability exists among patients receiving the same drug regarding the risk of metabolic effects. Anti-psychotic agents not only increase the risk of metabolic disorder, they also increase the risk of CVA, akathisia, and movement disorders including EPS or tardive dyskinesia (more common with first generation antipsychotics) and more. [facility] 2. Generalized anxiety disorder - Buspar 10 mg three times a day- therapy hx [facility] [place] 3. Primary insomnia -sleep disturbance sleep study [facility] in [facility] 4. Irritability and anger -Depakote DR 500 mg three times a day stable 5. elevted blood pressure reading educated on healthy b/p 120/80 monitor b/p at home refer to PCP, Urgent care/ER heart healthy diet and excise limit salt intake limit soda intake and caffiene increase water 6.tobacco use and vaping- repoted stopped vaping and aime stop smoking when complete 1/2 pack currently has 12/27/24 Do not smoke. Nicotine and other chemicals in cigarettes and cigars can cause lung damage. Ask your healthcare provider for information if you currently smoke and need help to quit. E-cigarettes or smokeless tobacco still contain nicotine. Talk to your healthcare provider before you use these products. education on decrease to stopping nicotine products and stop smoking hotline given 7. Alcohol use- stable has decrease use educated on decrease to stop use ETOH and risk ETOH use on mental health, and medical refer to therapy refer to group 8. ADHD r/o reviewed [facility] testing- indicative ADHD Score 5 Part A 02/07 Part B 08/16 ADHD self reporting scale completed NO CONTROL SUBSTANCE PRESCRIBED BY ELENI- CANNABIS USE- patient reported may consider stopping cannabis use Discuss and educated on non stimulates - Straterra 25 mg daily in am for 1 week, then increase to Straterra 40 mg daily in am [place] discuss and educated on hx Wellbutrin (paranoia) ADHD stimulates education Discuss with patient risk of misuse, abuse, and addiction before prescribing stimulant medicines. 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 Educate patients and their families on these serious risks, proper storage of the medicine, and proper disposal of any unused medicine. Educated patient will monitor Throughout treatment, regularly assess and monitor them for signs and symptoms of nonmedical use, addiction, and potential diversion, which may be evidenced by more frequent renewal. requests than warranted by the prescribed dosage. Random UDS [place] prescription reviewed local pharmacy in [facility], no early refills on control substance educated on non-stimulate and stimulates 9. Cannabis use NO CONTROL SUBSTANCE PRESCRIBED BY ELENI - patient reported may consider stopping cannabis use discuss random UDS Cannabis Use Education NO CONTROL SUBSTANCE PRESCRIBED BY ELENI with cannabis use Recommend decrease/stop cannabis use as it can negatively impact mood, motivation, anxiety, sleep, focus/concentra tion/memory (vigilance, elasticity, processing and attention); can also contribute to development of psychosis. Recommend decrease/stop cannabis use as it may be negatively impacting mood, motivation, anxiety, sleep, focus; can also contribute to development of psychosis Cannabis/mariju yesica information: http_s://florentino.[place].gov/publicat ions/drugfacts/ cannabis-costaju yesica http_s://www.[employer]/c xsegoye-sqk-nyc order-marijuana -adhd/ Discussion Notes continue therapy 12/13/2024 Encounter for screening for cardiovascular disorders (ICD-10 - Z13.6) 1. Bipolar affective disorder, Depakote DR 500 mg three times a day for agitation monitor for jael and agitation Vraylar 3 mg daily - improved - educated on all rx- stablize mood, agitation, psychosis, paranoia, and jael,- on Vraylar obtain labs PCP patient reported RLS at twice a day dosing and improved when decreased to daily Risperdal hx paranoia/ psychosis Effexor ER 150 MG DAILY IN AM for depression and anxiety EDUCATED ON ALL MEDICATIONS, benefits, side effects,risk Monitor B/P educated on all medications, benefits, side effects and risk, and educated on depression, anxiety, and mood d/o and educated on compliance of medications, metabolic and movement d/o education appointment's, continue therapy discussion with patient about course of treatmentand patient instructions. education on serotonin syndrome SSRI side effects discussed including but not limited to, gastric upset, nausea, vomiting, diarrhea and/or constipation, weight changes, sexual side effects including loss of libido, increased suicidal thoughts/behavi ors in children and young adults, and serotonin syndrome. Second generation antipsychotics (SGAs) have metabolic syndrome issues with weight gain, increase in prolactin, increased waist circumference, increased lipids, and increased glucose. Thus routine monitoring of weight, metabolic labs, etc. is indicated. A general rank ordering of antipsychotics that have the greatest to the least risk of metabolic effects is olanzapine, quetiapine, risperidone, ziprasidone, and aripiprazole. However, weight gain can occur with all of these drugs and considerable variability exists among patients receiving the same drug regarding the risk of metabolic effects. Anti-psychotic agents not only increase the risk of metabolic disorder, they also increase the risk of CVA, akathisia, and movement disorders including EPS or tardive dyskinesia (more common with first generation antipsychotics) and more. [facility] 2. Generalized anxiety disorder - Buspar 10 mg three times a day- therapy hx [facility] [place] 3. Primary insomnia -sleep disturbance sleep study [facility] in [facility] 4. Irritability and anger -Depakote DR 500 mg three times a day stable 5. elevted blood pressure reading educated on healthy b/p 120/80 monitor b/p at home refer to PCP, Urgent care/ER heart healthy diet and excise limit salt intake limit soda intake and caffiene increase water 6.tobacco use and vaping Do not smoke. Nicotine and other chemicals in cigarettes and cigars can cause lung damage. Ask your healthcare provider for information if you currently smoke and need help to quit. E-cigarettes or smokeless tobacco still contain nicotine. Talk to your healthcare provider before you use these products. education on decrease to stopping nicotine products and stop smoking hotline given 7. Alcohol use- stable has decrease use educated on decrease to stop use ETOH and risk ETOH use on mental health, and medical refer to therapy refer to group 8. ADHD r/o schedule [facility] testing ADHD self reporting scale completed . Long-term drug therapy - Discussion Notescontinue therapy 12/13/2024 ADHD (attention deficit hyperactivity disorder), combined type (ICD-10 - F90.2) 1. Bipolar affective disorder, Depakote DR 500 mg three times a day for agitation monitor for jael and agitation Vraylar 3 mg daily - improved - educated on all rx- stablize mood, agitation, psychosis, paranoia, and jael,- on Vraylar obtain labs PCP patient reported RLS at twice a day dosing and improved when decreased to daily Risperdal hx paranoia/ psychosis Effexor ER 150 MG DAILY IN AM for depression and anxiety EDUCATED ON ALL MEDICATIONS, benefits, side effects,risk Monitor B/P educated on all medications, benefits, side effects and risk, and educated on depression, anxiety, and mood d/o and educated on compliance of medications, metabolic and movement d/o education appointment's, continue therapy discussion with patient about course of treatmentand patient instructions. education on serotonin syndrome SSRI side effects discussed including but not limited to, gastric upset, nausea, vomiting, diarrhea and/or constipation, weight changes, sexual side effects including loss of libido, increased suicidal thoughts/behavi ors in children and young adults, and serotonin syndrome. Second generation antipsychotics (SGAs) have metabolic syndrome issues with weight gain, increase in prolactin, increased waist circumference, increased lipids, and increased glucose. Thus routine monitoring of weight, metabolic labs, etc. is indicated. A general rank ordering of antipsychotics that have the greatest to the least risk of metabolic effects is olanzapine, quetiapine, risperidone, ziprasidone, and aripiprazole. However, weight gain can occur with all of these drugs and considerable variability exists among patients receiving the same drug regarding the risk of metabolic effects. Anti-psychotic agents not only increase the risk of metabolic disorder, they also increase the risk of CVA, akathisia, and movement disorders including EPS or tardive dyskinesia (more common with first generation antipsychotics) and more. [facility] [place] 2. Generalized anxiety disorder - Buspar 10 mg three times a day- therapy hx [facility] [place] 3. Primary insomnia -sleep disturbance sleep study [facility] 4. Irritability and anger -Depakote DR 500 mg three times a day stable 5. elevted blood pressure reading educated on healthy b/p 120/80 monitor b/p at home refer to PCP, Urgent care/ER heart healthy diet and excise limit salt intake limit soda intake and caffiene increase water 6.tobacco use and vaping Do not smoke. Nicotine and other chemicals in cigarettes and cigars can cause lung damage. Ask your healthcare provider for information if you currently smoke and need help to quit. E-cigarettes or smokeless tobacco still contain nicotine. Talk to your healthcare provider before you use these products. education on decrease to stopping nicotine products and stop smoking hotline given 7. Alcohol use- stable has decrease use educated on decrease to stop use ETOH and risk ETOH use on mental health, and medical refer to therapy refer to group 8. ADHD r/o schedule [facility] testing ADHD self reporting scale completed . Long-term drug therapy - Discussion Notescontinue therapy 12/27/2024 ADHD (attention deficit hyperactivity disorder), combined type (ICD-10 - F90.2) Attention Deficit Hyperactivity Disorder (ADHD) in Adults: Care Instructions material was published, Learning About Attention Deficit Hyperactivity Disorder (ADHD) in Adults material was published, Learning About Stimulant Medicines for Attention Deficit Hyperactivity Disorder (ADHD) material was published 1. Bipolar affective disorder, Depakote DR 500 mg three times a day for agitation monitor for jael and agitation Vraylar 3 mg daily - improved - educated on all rx- stablize mood, agitation, psychosis, paranoia, and jael,- on Vraylar obtain labs PCP patient reported RLS at twice a day dosing and improved when decreased to daily Risperdal hx paranoia/ psychosis Effexor ER 150 MG DAILY IN AM for depression and anxiety EDUCATED ON ALL MEDICATIONS, benefits, side effects,risk Monitor B/P educated on all medications, benefits, side effects and risk, and educated on depression, anxiety, and mood d/o and educated on compliance of medications, metabolic and movement d/o education appointment's, continue therapy discussion with patient about course of treatmentand patient instructions. education on serotonin syndrome SSRI side effects discussed including but not limited to, gastric upset, nausea, vomiting, diarrhea and/or constipation, weight changes, sexual side effects including loss of libido, increased suicidal thoughts/behavi ors in children and young adults, and serotonin syndrome. Second generation antipsychotics (SGAs) have metabolic syndrome issues with weight gain, increase in prolactin, increased waist circumference, increased lipids, and increased glucose. Thus routine monitoring of weight, metabolic labs, etc. is indicated. A general rank ordering of antipsychotics that have the greatest to the least risk of metabolic effects is olanzapine, quetiapine, risperidone, ziprasidone, and aripiprazole. However, weight gain can occur with all of these drugs and considerable variability exists among patients receiving the same drug regarding the risk of metabolic effects. Anti-psychotic agents not only increase the risk of metabolic disorder, they also increase the risk of CVA, akathisia, and movement disorders including EPS or tardive dyskinesia (more common with first generation antipsychotics) and more. [facility] 2. Generalized anxiety disorder - Buspar 10 mg three times a day- therapy hx [facility] [place] 3. Primary insomnia -sleep disturbance sleep study [facility] 4. Irritability and anger -Depakote DR 500 mg three times a day stable 5. elevted blood pressure reading educated on healthy b/p 120/80 monitor b/p at home refer to PCP, Urgent care/ER heart healthy diet and excise limit salt intake limit soda intake and caffiene increase water 6.tobacco use and vaping- repoted stopped vaping and aime stop smoking when complete 1/2 pack currently has 12/27/24 Do not smoke. Nicotine and other chemicals in cigarettes and cigars can cause lung damage. Ask your healthcare provider for information if you currently smoke and need help to quit. E-cigarettes or smokeless tobacco still contain nicotine. Talk to your healthcare provider before you use these products. education on decrease to stopping nicotine products and stop smoking hotline given 7. Alcohol use- stable has decrease use educated on decrease to stop use ETOH and risk ETOH use on mental health, and medical refer to therapy refer to group 8. [facility] r/[facility]- indicative ADHD Score 5 Part A 5/6 Part B 08/16 ADHD self reporting scale completed NO CONTROL SUBSTANCE PRESCRIBED BY ELENI- CANNABIS USE- patient reported may consider stopping cannabis use Discuss and educated on non stimulates - Straterra 25 mg daily in am for 1 week, then increase to Straterra 40 mg daily in am [place] discuss and educated on hx Wellbutrin (paranoia) ADHD stimulates education Discuss with patient risk of misuse, abuse, and addiction before prescribing stimulant medicines. 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 Educate patients and their families on these serious risks, proper storage of the medicine, and proper disposal of any unused medicine. Educated patient will monitor Throughout treatment, regularly assess and monitor them for signs and symptoms of nonmedical use, addiction, and potential diversion, which may be evidenced by more frequent renewal. requests than warranted by the prescribed dosage. Random UDS [place] prescription reviewed local pharmacy in [facility], no early refills on control substance educated on non-stimulate and stimulates 9. Cannabis use NO CONTROL SUBSTANCE PRESCRIBED BY ELENI - patient reported may consider stopping cannabis use discuss random UDS Cannabis Use Education NO CONTROL SUBSTANCE PRESCRIBED BY ELENI with cannabis use Recommend decrease/stop cannabis use as it can negatively impact mood, motivation, anxiety, sleep, focus/concentra tion/memory (vigilance, elasticity, processing and attention); can also contribute to development of psychosis. Recommend decrease/stop cannabis use as it may be negatively impacting mood, motivation, anxiety, sleep, focus; can also contribute to development of psychosis Cannabis/mariju yesica information: http_s://florentino.n [place].gov/publicat ions/drugfacts/ cannabis-mariju yesica http_s://www.[employer]/c svneoqv-kke-tzw order-marijuana -adhd/ Discussion Notes continue therapy 12/27/2024 Marijuana use (ICD-10 - F12.90) Marijuana Use: Care Instructions material was published, Learning About Cannabis Use Disorder material was published 1. Bipolar affective disorder, Depakote DR 500 mg three times a day for agitation monitor for jael and agitation Vraylar 3 mg daily - improved - educated on all rx- stablize mood, agitation, psychosis, paranoia, and jael,- on Vraylar obtain labs PCP patient reported RLS at twice a day dosing and improved when decreased to daily Risperdal hx paranoia/ psychosis Effexor ER 150 MG DAILY IN AM for depression and anxiety EDUCATED ON ALL MEDICATIONS, benefits, side effects,risk Monitor B/P educated on all medications, benefits, side effects and risk, and educated on depression, anxiety, and mood d/o and educated on compliance of medications, metabolic and movement d/o education appointment's, continue therapy discussion with patient about course of treatmentand patient instructions. education on serotonin syndrome SSRI side effects discussed including but not limited to, gastric upset, nausea, vomiting, diarrhea and/or constipation, weight changes, sexual side effects including loss of libido, increased suicidal thoughts/behavi ors in children and young adults, and serotonin syndrome. Second generation antipsychotics (SGAs) have metabolic syndrome issues with weight gain, increase in prolactin, increased waist circumference, increased lipids, and increased glucose. Thus routine monitoring of weight, metabolic labs, etc. is indicated. A general rank ordering of antipsychotics that have the greatest to the least risk of metabolic effects is olanzapine, quetiapine, risperidone, ziprasidone, and aripiprazole. However, weight gain can occur with all of these drugs and considerable variability exists among patients receiving the same drug regarding the risk of metabolic effects. Anti-psychotic agents not only increase the risk of metabolic disorder, they also increase the risk of CVA, akathisia, and movement disorders including EPS or tardive dyskinesia (more common with first generation antipsychotics) and more. [facility] 2. Generalized anxiety disorder - Buspar 10 mg three times a day- therapy hx [facility] [place] 3. Primary insomnia -sleep disturbance sleep study [facility] 4. Irritability and anger -Depakote DR 500 mg three times a day stable 5. elevted blood pressure reading educated on healthy b/p 120/80 monitor b/p at home refer to PCP, Urgent care/ER heart healthy diet and excise limit salt intake limit soda intake and caffiene increase water 6.tobacco use and vaping- repoted stopped vaping and aime stop smoking when complete 1/2 pack currently has 12/27/24 Do not smoke. Nicotine and other chemicals in cigarettes and cigars can cause lung damage. Ask your healthcare provider for information if you currently smoke and need help to quit. E-cigarettes or smokeless tobacco still contain nicotine. Talk to your healthcare provider before you use these products. education on decrease to stopping nicotine products and stop smoking hotline given 7. Alcohol use- stable has decrease use educated on decrease to stop use ETOH and risk ETOH use on mental health, and medical refer to therapy refer to group 8. ADHD r/o reviewed [facility] testing- indicative ADHD Score 5 Part A 6 Part B 08/16 ADHD self reporting scale completed NO CONTROL SUBSTANCE PRESCRIBED BY ELENI- CANNABIS USE- patient reported may consider stopping cannabis use Discuss and educated on non stimulates - Straterra 25 mg daily in am for 1 week, then increase to Straterra 40 mg daily in am [place] discuss and educated on hx Wellbutrin (paranoia) ADHD stimulates education Discuss with patient risk of misuse, abuse, and addiction before prescribing stimulant medicines. 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 Educate patients and their families on these serious risks, proper storage of the medicine, and proper disposal of any unused medicine. Educated patient will monitor Throughout treatment, regularly assess and monitor them for signs and symptoms of nonmedical use, addiction, and potential diversion, which may be evidenced by more frequent renewal. requests than warranted by the prescribed dosage. Random UDS [place] prescription reviewed local pharmacy in [facility], no early refills on control substance educated on non-stimulate and stimulates 9. Cannabis use NO CONTROL SUBSTANCE PRESCRIBED BY ELENI - patient reported may consider stopping cannabis use discuss random UDS Cannabis Use Education NO CONTROL SUBSTANCE PRESCRIBED BY ELENI with cannabis use Recommend decrease/stop cannabis use as it can negatively impact mood, motivation, anxiety, sleep, focus/concentra tion/memory (vigilance, elasticity, processing and attention); can also contribute to development of psychosis. Recommend decrease/stop cannabis use as it may be negatively impacting mood, motivation, anxiety, sleep, focus; can also contribute to development of psychosis Cannabis/mariju yesica information: http_s://florentino.n ih.gov/publicat ions/drugfacts/ cannabis-mariju yesica http_s://www.[employer]com/c ikqkguy-vfz-xxu order-marijuana -adhd/ Discussion Notes continue therapy 12/27/2024 Nicotine use (ICD-10 - Z72.0) 1. Bipolar affective disorder, Depakote DR 500 mg three times a day for agitation monitor for jael and agitation Vraylar 3 mg daily - improved - educated on all rx- stablize mood, agitation, psychosis, paranoia, and jael,- on Vraylar obtain labs PCP patient reported RLS at twice a day dosing and improved when decreased to daily Risperdal hx paranoia/ psychosis Effexor ER 150 MG DAILY IN AM for depression and anxiety EDUCATED ON ALL MEDICATIONS, benefits, side effects,risk Monitor B/P educated on all medications, benefits, side effects and risk, and educated on depression, anxiety, and mood d/o and educated on compliance of medications, metabolic and movement d/o education appointment's, continue therapy discussion with patient about course of treatmentand patient instructions. education on serotonin syndrome SSRI side effects discussed including but not limited to, gastric upset, nausea, vomiting, diarrhea and/or constipation, weight changes, sexual side effects including loss of libido, increased suicidal thoughts/behavi ors in children and young adults, and serotonin syndrome. Second generation antipsychotics (SGAs) have metabolic syndrome issues with weight gain, increase in prolactin, increased waist circumference, increased lipids, and increased glucose. Thus routine monitoring of weight, metabolic labs, etc. is indicated. A general rank ordering of antipsychotics that have the greatest to the least risk of metabolic effects is olanzapine, quetiapine, risperidone, ziprasidone, and aripiprazole. However, weight gain can occur with all of these drugs and considerable variability exists among patients receiving the same drug regarding the risk of metabolic effects. Anti-psychotic agents not only increase the risk of metabolic disorder, they also increase the risk of CVA, akathisia, and movement disorders including EPS or tardive dyskinesia (more common with first generation antipsychotics) and more. [facility] [place] 2. Generalized anxiety disorder - Buspar 10 mg three times a day- therapy hx [facility] [place] 3. Primary insomnia -sleep disturbance sleep study [facility] 4. Irritability and anger -Depakote DR 500 mg three times a day stable 5. elevted blood pressure reading educated on healthy b/p 120/80 monitor b/p at home refer to PCP, Urgent care/ER heart healthy diet and excise limit salt intake limit soda intake and caffiene increase water 6.tobacco use and vaping- repoted stopped vaping and aime stop smoking when complete 1/2 pack currently has 12/27/24 Do not smoke. Nicotine and other chemicals in cigarettes and cigars can cause lung damage. Ask your healthcare provider for information if you currently smoke and need help to quit. E-cigarettes or smokeless tobacco still contain nicotine. Talk to your healthcare provider before you use these products. education on decrease to stopping nicotine products and stop smoking hotline given 7. Alcohol use- stable has decrease use educated on decrease to stop use ETOH and risk ETOH use on mental health, and medical refer to therapy refer to group 8. ADHD r/o reviewed [place] testing- indicative ADHD Score 5 Part A /6 Part B 08/16 ADHD self reporting scale completed NO CONTROL SUBSTANCE PRESCRIBED BY ELENI- CANNABIS USE- patient reported may consider stopping cannabis use Discuss and educated on non stimulates - Straterra 25 mg daily in am for 1 week, then increase to Straterra 40 mg daily in am Q[place]ree discuss and educated on hx Wellbutrin (paranoia) ADHD stimulates education Discuss with patient risk of misuse, abuse, and addiction before prescribing stimulant medicines. 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 Educate patients and their families on these serious risks, proper storage of the medicine, and proper disposal of any unused medicine. Educated patient will monitor Throughout treatment, regularly assess and monitor them for signs and symptoms of nonmedical use, addiction, and potential diversion, which may be evidenced by more frequent renewal. requests than warranted by the prescribed dosage. Random UDS [place] prescription reviewed local pharmacy in [facility], no early refills on control substance educated on non-stimulate and stimulates 9. Cannabis use NO CONTROL SUBSTANCE PRESCRIBED BY ELENI - patient reported may consider stopping cannabis use discuss random UDS Cannabis Use Education NO CONTROL SUBSTANCE PRESCRIBED BY ELENI with cannabis use Recommend decrease/stop cannabis use as it can negatively impact mood, motivation, anxiety, sleep, focus/concentra tion/memory (vigilance, elasticity, processing and attention); can also contribute to development of psychosis. Recommend decrease/stop cannabis use as it may be negatively impacting mood, motivation, anxiety, sleep, focus; can also contribute to development of psychosis Cannabis/mariju yesica information: http_s://florentino.n ih.gov/publicat ions/drugfacts/ cannabis-costaju yesica http_s://www.[employer]/c vwbpwev-gws-ubf order-marijuana -adhd/ Discussion Notes continue therapy 03/29/2024 Other 1. Bipolar affective disorder, currently depressed, moderate -Depakote DR 500 mg three times a day for agitationmonitor for jael and agitation Risperdal 2 mg a day for bipolar jael - educated on rx- improved with rx patient reported RLS at twice a day dosing and improved when decreased to daily Risperdal hx paranoia/ psychosis Effexor ER 150 MG DAILY IN AM for depression and anxietyEDUCATED ON ALL MEDICATIONSMonitor B/P educated on all medications, benefits, side effects and risk, and educated on depression, anxiety, and mood d/o and educated on compliance of medications, metabolic and movement d/o education appointment's, continue therapy discussion with patient about course of treatmentand patient instructions. education on serotonin syndrome LABS OBTAIN from PCP SSRI side effects discussed including but not limited to, gastric upset, nausea, vomiting, diarrhea and/or constipation, weight changes, sexual side effects including loss of libido, increased suicidal thoughts/behaviors in children and young adults, and serotonin syndrome. Second generation antipsychotics (SGAs) have metabolic syndrome issues with weight gain, increase in prolactin, increased waist circumference, increased lipids, and increased glucose. Thus routine monitoring of weight, metabolic labs, etc. is indicated. A general rank ordering of antipsychotics that have the greatest to the least risk of metabolic effects is olanzapine, quetiapine, risperidone, ziprasidone, and aripiprazole. However, weight gain can occur with all of these drugs and considerable variability exists among patients receiving the same drug regarding the risk of metabolic effects. Anti-psychotic agents not only increase the risk of metabolic disorder, they also increase the risk of CVA, akathisia, and movement disorders including EPS or tardive dyskinesia (more common with first generation antipsychotics) and more. F31.32: Bipolar disorder, current episode depressed, moderaterisperidone 2 mg tablet - Take 1 tablet(s) once a day by oral route as directed for 90 days, for Bipolar jael. Qty: (90) tablet Refills: 0 [facility] mg capsule,extended release 24 hr - Take 1 capsule(s) every day by oral route in the morning for 90 days. Qty: (90) capsule Refills: 0 Pharmacy: [facility] 2. Generalized anxiety disorder -Buspar 10 mg three times a day-[facility] [place] F41.1: Generalized anxiety disorder 3. Primary insomnia -sleep disturbance schedule to sleep study [facility] [place] Primary insomnia 4. Irritability and anger -Depakote DR 500 mg three times a dayR45.4: Irritability and anger 5. Long-term drug therapy -Z79.899: Other fpc (current) drug therapy F31.32: Bipolar disorder, current episode depressed, moderate F41.1: Generalized anxiety disorder F51.01: Primary insomnia K21.9: Gastro-esophageal reflux disease without esophagitis Discussion Notescontinue therapy 1. Bipolar affective disorder, currently depressed, moderate - Depakote DR 500 mg three times a day for agitation monitor for jael and agitation Risperdal 2 mg a day for bipolar jael - educated on rx- improved with rx patient reported RLS at twice a day dosing and improved when decreased to daily Risperdal hx paranoia/ psychosis Effexor ER 150 MG DAILY IN AM for depression and anxiety EDUCATED ON ALL MEDICATIONS Monitor B/P educated on all medications, benefits, side effects and risk, and educated on depression, anxiety, and mood d/o and educated on compliance of medications, metabolic and movement d/o education appointment's, continue therapy discussion with patient about course of treatmentand patient instructions. education on serotonin syndrome LABS OBTAIN from PCP SSRI side effects discussed including but not limited to, gastric upset, nausea, vomiting, diarrhea and/or constipation, weight changes, sexual side effects including loss of libido, increased suicidal thoughts/behavi ors in children and young adults, and serotonin syndrome. Second generation antipsychotics (SGAs) have metabolic syndrome issues with weight gain, increase in prolactin, increased waist circumference, increased lipids, and increased glucose. Thus routine monitoring of weight, metabolic labs, etc. is indicated. A general rank ordering of antipsychotics that have the greatest to the least risk of metabolic effects is olanzapine, quetiapine, risperidone, ziprasidone, and aripiprazole. However, weight gain can occur with all of these drugs and considerable variability exists among patients receiving the same drug regarding the risk of metabolic effects. Anti-psychotic agents not only increase the risk of metabolic disorder, they also increase the risk of CVA, akathisia, and movement disorders including EPS or tardive dyskinesia (more common with first generation antipsychotics) and more. F31.32: Bipolar disorder, current episode depressed, moderate risperidone 2 mg tablet - Take 1 tablet(s) once a day by oral route as directed for 90 days, for Bipolar jael. Qty: (90) tablet Refills: 0 [facility]: [facility] venlafaxine ER 150 mg capsule,extende d release 24 hr - Take 1 capsule(s) every day by oral route in the morning for 90 days. Qty: (90) capsule Refills: 0 Pharmacy: [facility] [place] 2. Generalized anxiety disorder - Buspar 10 mg three times a day- therapy presently [facility] [place] F41.1: Generalized anxiety disorder 3. Primary insomnia -sleep disturbance schedule to sleep study [facility] in [place] F51.01: Primary insomnia 4. Irritability and anger -Depakote DR 500 mg three times a day R45.4: Irritability and anger 5. Long-term drug therapy -Z79.899: Other fpc (current) drug therapy Discussion Notescontinue therapy 10/18/2024 Other Client reports his father in law has terminal cancer. It makes client tearful to even talk about it. Client reports he has been having self harming thoughts but has not acted on them because he really doesn't want to harm himself. Client reports he was taken off his Trintellix in October of 2022. He states he has been struggling with these thoughts since then. He has discussed this with the nurse practitioner and his meds have been adjusted.He states he has been drinking more than usual. Therapist actively listened to client and utilized a cognitive behavioral intervention to assist client with exploring strategies to better manage the stress that is currently impacting his mood. PHQ=9 mild ADILENE=8 mild 11/15/2024 Other Client reports work has been going fairly smoothly of late. He states that while in the waiting room client saw a video on ADHD and sees himself in what they were talking about. 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 Client also reports home life is going fairly well too. He reports his bigget problem has been procrastenating small household tasks so that his days off are extremely busy. Therapist actively listened to client and utilized a cognitive behavioral intervention to help client explore strategies to minimize procrastination . PHQ=8 mild ADILENE=7 mild 12/13/2024 Other Client reports he has been having a number of stable and good days. Client reports his son even came up to him and told client he has noticed the change in him. He reports his current meds are also allowing him to have more patience at work. Therapist actively listened to client and asked questions for clarification. The therapist then provided a supportive intervention by helping client maintain her current level of functioning through the showing of acceptance. PHQ=8 mild ADILENE=6 mild 12/27/2024 Other Atomoxetine material was published 1. Bipolar affective disorder, Depakote DR 500 mg three times a day for agitation monitor for jael and agitation Vraylar 3 mg daily - improved - educated on all rx- stablize mood, agitation, psychosis, paranoia, and jael,- on Vraylar obtain labs PCP patient reported RLS at twice a day dosing and improved when decreased to daily Risperdal hx paranoia/ psychosis Effexor ER 150 MG DAILY IN AM for depression and anxiety EDUCATED ON ALL MEDICATIONS, benefits, side effects,risk Monitor B/P educated on all medications, benefits, side effects and risk, and educated on depression, anxiety, and mood d/o and educated on compliance of medications, metabolic and movement d/o education appointment's, continue therapy discussion with patient about course of treatmentand patient instructions. education on serotonin syndrome SSRI side effects discussed including but not limited to, gastric upset, nausea, vomiting, diarrhea and/or constipation, weight changes, sexual side effects including loss of libido, increased suicidal thoughts/behavi ors in children and young adults, and serotonin syndrome. Second generation antipsychotics (SGAs) have metabolic syndrome issues with weight gain, increase in prolactin, increased waist circumference, increased lipids, and increased glucose. Thus routine monitoring of weight, metabolic labs, etc. is indicated. A general rank ordering of antipsychotics that have the greatest to the least risk of metabolic effects is olanzapine, quetiapine, risperidone, ziprasidone, and aripiprazole. However, weight gain can occur with all of these drugs and considerable variability exists among patients receiving the same drug regarding the risk of metabolic effects. Anti-psychotic agents not only increase the risk of metabolic disorder, they also increase the risk of CVA, akathisia, and movement disorders including EPS or tardive dyskinesia (more common with first generation antipsychotics) and more. [facility] 2. Generalized anxiety disorder - Buspar 10 mg three times a day- therapy hx [facility] [place] 3. Primary insomnia -sleep disturbance sleep study [facility] in [facility] 4. Irritability and anger -Depakote DR 500 mg three times a day stable 5. elevted blood pressure reading educated on healthy b/p 120/80 monitor b/p at home refer to PCP, Urgent care/ER heart healthy diet and excise limit salt intake limit soda intake and caffiene increase water 6.tobacco use and vaping- repoted stopped vaping and aime stop smoking when complete 1/2 pack currently has 12/27/24 Do not smoke. Nicotine and other chemicals in cigarettes and cigars can cause lung damage. Ask your healthcare provider for information if you currently smoke and need help to quit. E-cigarettes or smokeless tobacco still contain nicotine. Talk to your healthcare provider before you use these products. education on decrease to stopping nicotine products and stop smoking hotline given 7. Alcohol use- stable has decrease use educated on decrease to stop use ETOH and risk ETOH use on mental health, and medical refer to therapy refer to group 8. ADHD r/o reviewed [place] testing- indicative ADHD Score 5 Part A 5/6 Part B 08/16 ADHD self reporting scale completed NO CONTROL SUBSTANCE PRESCRIBED BY ELENI- CANNABIS USE- patient reported may consider stopping cannabis use Discuss and educated on non stimulates - Straterra 25 mg daily in am for 1 week, then increase to Straterra 40 mg daily in am Qelbree discuss and educated on hx Wellbutrin (paranoia) ADHD stimulates education Discuss with patient risk of misuse, abuse, and addiction before prescribing stimulant medicines. 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 Educate patients and their families on these serious risks, proper storage of the medicine, and proper disposal of any unused medicine. Educated patient will monitor Throughout treatment, regularly assess and monitor them for signs and symptoms of nonmedical use, addiction, and potential diversion, which may be evidenced by more frequent renewal. requests than warranted by the prescribed dosage. Random UDS [place] prescription reviewed local pharmacy in [facility], no early refills on control substance educated on non-stimulate and stimulates 9. Cannabis use NO CONTROL SUBSTANCE PRESCRIBED BY ELENI - patient reported may consider stopping cannabis use discuss random UDS Cannabis Use Education NO CONTROL SUBSTANCE PRESCRIBED BY ELENI with cannabis use Recommend decrease/stop cannabis use as it can negatively impact mood, motivation, anxiety, sleep, focus/concentra tion/memory (vigilance, elasticity, processing and attention); can also contribute to development of psychosis. Recommend decrease/stop cannabis use as it may be negatively impacting mood, motivation, anxiety, sleep, focus; can also contribute to development of psychosis Cannabis/mariju yesica information: http_s://florentino.n ih.gov/publicat ions/drugfacts/ cannabis-mariju yesica http_s://www.[employer]/c vkqcrnh-uxg-qvk order-marijuana -adhd/ Discussion Notes continue therapy Plan Of Treatment Future Test Test Name Order Date Liver Function Test (LFT) 06/21/2024 LIPID PANEL WITH REFLEX TO DIRECT LDL (1 4852) 06/21/2024 COMPREHENSIVE METABOLIC PANEL (14879) CBC (INCLUDES DIFF/PLT) (6399) 4 HEMOGLOBIN A1c (496) 06/21/2024 VALPROIC ACID (916) 06/21/2024 Liver Function Test (LFT) 02/07/2025 LIPID PANEL WITH REFLEX TO DIRECT LDL (1 4852) 02/07/2025 COMPREHENSIVE METABOLIC PANEL (88895) CBC (INCLUDES DIFF/PLT) (6399) 5 HEMOGLOBIN A1c (496) 02/07/2025 TSH W/REFLEX TO FT4 (32034) 02/07/2025 VALPROIC ACID (916) 02/07/2025 Next Appt Details Provider Name:Ava Radersummer , 03/14/2025 01:30:00 PM, [address], [address], [place], [address], Insurance Providers Payer Name Payer Address Payer Phone Subscriber Number Group Number Insured Name Patient Relationship to Insured Coverage Start Date Coverage End Date [employer] o [address] [place] [address] [id number] SCOTT MAST Self - patient is the insured Medical (General) History Medical History History ICD Code Problems: Bipolar affective disorder, cu rrently depressed, moderate Electronic cigarette user Generalized anxiety disorder Irritability and anger Long-term drug therapy Moderate recurrent major depression Primary insomnia Severe mixed bipolar I disorder Tobacco user , Surgical History Surgery Date(Month/Year) Any surgical history Repair of meniscus ([id number]) Left Knee
[2025-02-28 13:20] LABS: Basophils Absolute Auto 0.03 K/mm3 (0.00-0.10); Basophils Percent Auto 0.4 % (0.0-1.0); Eosinophils Absolute Auto 0.14 K/mm3 (0.02-0.50); Hematocrit 50.6 % (40.0-54.0); Immature Granulocyte Absolute 0.02 K/mm3 (0.00-0.00); Immature Granulocyte Percent A 0.3 % (0.0-0.0); Lymphocytes Absolute Auto 2.08 K/mm3 (1.10-4.50); Lymphocytes Percent Auto 29.1 % (18.0-42.0); Mean Corpuscular HGB Conc 33.6 g/dL (32-36); Mean Corpuscular Hemoglobin 31.1 pg (27.0-31.0); Mean Corpuscular Volume 92.7 fL (78.0-102.0); Mean Platelet Volume 10.3 fl (8.7-11.0); Monocytes Percent Auto 9.8 % (2.0-11.0); Neutrophils Absolute Auto 4.18 K/mm3 (1.70-7.20); Neutrophils Percent Auto 58.4 % (50.0-70.0); Platelet Count Result 250 K/mm3 (150-420); Red Blood Count 5.46 M/mm3 (4.70-6.10); Red Cell Distribution Width 12.3 % (11.6-14.4); White Blood Count 7.2 K/mm3 (4.8-10.8)
[2025-02-28 14:17] LABS: Alanine Aminotransferase 32 U/L (6-50); Albumin Level 4.6 g/dL (3.5-5.1); Alkaline Phosphatase 60 U/L (38-126); Anion Gap 5 mmol/L (4-12); Aspartate Amino Transferase 39 U/L (17-59); Blood Urea Nitrogen 10 mg/dL (9-20); Calcium 9.1 mg/dL (8.4-10.2); Carbon Dioxide 32 mmol/L (22-30); Chloride 103 mmol/L (98-107); Estimated Glomerular Filt Rate > 60; Glucose 84 mg/dL (65-110); Osmolality Calculated 288 mOsm/kg (285-295); Potassium 4.7 mmol/L (3.4-5.0); Sodium 140 mmol/L (137-145); Total Protein 7.3 g/dL (6.3-8.2)
[2025-02-28 14:46] LABS: Prostate Specific Antigen 0.8 ng/mL (< OR = 4.0)
[2025-03-01 09:13] LABS: Sex Hormone Binding Globulin 18 nmol/L (10-50)
[2025-03-04 18:24] LABS: Testosterone Free 206.6 pg/mL (35.0-155.0); Testosterone Total 869 ng/dL (250-1100)
== END 2025-02-28 13:06 | disposition home or self-care (01) ==
LOC: CHSLAB 13:08
PROVIDERS: PCP Nurse Practitioner Family; Visit Provider Chiropractor
DX: D75.1 Secondary polycythemia (principal); N52.8 Other male erectile dysfunction; E29.1 Testicular hypofunction; Z79.890 Hormone replacement therapy
CPT/HCPCS: 36415; 80053; 82670; 84153; 84270; 84402; 84403; 85025

== ENCOUNTER 2025-08-23 11:12 | Outpatient (CLI) | payer OTHER, SELFPAY ==
--- NOTE | ~2025-08-23 | XR_ITS ---
EXAMINATION: XR foot LT min 3V, 08/23/2025 11:25 [place] HISTORY: M79.672 - Pain in left foot COMPARISON: No comparisons available. Findings: No acute fracture or malalignment. No significant degenerative changes. Soft tissues unremarkable. Impression: No acute fracture or malalignment. Reviewed, dictated and finalized at location P. MAN Impression: No acute fracture or malalignment.
--- NOTE | ~2025-08-23 | XR_ITS ---
XR lumbar spine min 4V Indication: M54.50 - Low back pain, unspecified Comparison: None Findings: The vertebral heights are intact. No fracture or subluxation. Minimal loss of disc height at L4-5 and L5-S1 Soft tissues unremarkable Impression: No acute abnormality. Reviewed, dictated and finalized at location P. 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
--- OUTSIDE RECORDS SUMMARY | 2025-08-23 16:29 | XMS_ITS | Clinical Summary ---
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 Gender Identity Not on file Sexual Orientation Not on file Plan of Treatment Health Maintenance Due Date Last Done Comments Annual Physical 1991 Hepatitis C 2006 DTaP, Tdap and Td Vaccines ( 1 - Tdap) 2007 Hepatitis B Vaccines (1 of 3 - 19+ 3-dose series) 2007 HPV Vaccines (1 - 3-dose SCD M series) 2015 COVID-19 Vaccine (2024-2 6 season) 2025 Influenza Adult (#1) 2025 Hepatitis A Vaccines Aged Out No long er eligible based on patient's age to complete this topic Meningococcal B Vaccine Aged Out No l onger eligible based on patient's age to complete this topic Meningococcal Vaccine Aged Out No anthony josé eligible based on patient's age to complete this topic Pneumococcal Vaccine: Pediat rics (0 to 5 Years) and At-Risk Patients (6 to 49 Years) Aged Out No longer eligible b ased on patient's age to complete this topic RSV Immunizations Under 20 Months Aged Out No longer eligible based on patient's age to complete this topic
== END 2025-08-23 11:13 | disposition home or self-care (01) ==
LOC: CHSIMG 11:14
PROVIDERS: PCP Nurse Practitioner Family; Visit Provider Nurse Practitioner Family
DX: M54.50 Low back pain, unspecified (principal); M79.672 Pain in left foot
CPT/HCPCS: 72110; 73630